=== PATIENT | male | born 1955 | race African-American/Black ===

== ENCOUNTER 2025-09-18 15:29 | Inpatient (IN) | payer SELFPAY ==
[2025-09-18] VITALS (10 sets, daily range): BP systolic 127–181; BP diastolic 68–146; BMI 39.3
[2025-09-18 13:59] LABS: Hematocrit 28.5 % (39.0-52.0); Hemoglobin 9.2 g/dL (13.0-18.0); Mean Corp Hgb Conc. 32.3 g/dL (33.0-37.0); Mean Corpuscular Volume 82.4 fL (80.0-94.0); Nucleated Red Blood Cells % 0 % (-); Platelet Count 402 10^3/uL (130-400); Red Cell Dist. Width 15.6 % (11.5-14.5)
[2025-09-18 14:27] LABS: ALT (SGPT) 29 U/L (0-50); AST (SGOT) 35 U/L (17-59); Albumin 3.7 g/dl (3.5-5.0); Alkaline Phosphatase 108 U/L (38-126); Calcium 7.7 mg/dl (8.4-10.2); Carbon Dioxide 6 mmol/L (22-30); Chloride 107 mmol/L (98-107); Glucose 114 mg/dl (70-99); Potassium 8.4 mmol/L (3.5-5.1); Sodium 134 mmol/L (135-145); Total Protein 7.6 g/dl (6.3-8.2)
[2025-09-18 14:36] LABS: Blood Urea Nitrogen 172 mg/dl (9-20); eGFR 2.72
[2025-09-18 14:37] LABS: COVID-19 Antigen Negative (Negative)
[2025-09-18] MEDS: CALCIUM GLUCONATE 1000 MG IV (14:59)
[2025-09-18] MEDS: DEXTROSE 50% SYRINGE 25 GRAMS IV ×3 (14:59→22:41)
[2025-09-18] MEDS: NOVOLIN R 5 UNITS IV ×2 (14:59→17:57)
[2025-09-18 15:02] LABS: Glucose - Point of Care 117 mg/dl (70-99)
--- NOTE | 2025-09-18 15:04 | ED.GENMED ---
History of Present Illness
General
Chief Complaint: Weakness
Source: patient
Exam Limitations: none
Time Seen by Provider: 09/18/25 14:38
Nursing documentation reviewed up to this point in time: agreed with
History of Present Illness
History of Present Illness:
Note:
CHIEF COMPLAINT(S)
Weakness and shortness of breath.
HISTORY OF PRESENT ILLNESS
The patient is a 70-year-old male presenting with a feeling of weakness over the past several days. He reports experiencing mild shortness of breath and slight swelling in his legs over the last day. The patient denies any chest pain. He mentioned
that he has noticed slightly elevated blood sugar levels recently, although he did not specify the exact measurements. The patient has not been eating or drinking adequately, stating a lack of appetite as the reason.
SOCIAL DETERMINANTS AFFECTING HEALTH
The patient lives by himself but occasionally stays with friends. He mentioned that he has lived overseas, specifically in [place].
CHRONIC MEDICAL CONDITIONS SIGNIFICANTLY AFFECTING CARE
The patient mentioned that his blood sugar levels have been high, suggesting a possible history of diabetes.
REVIEW OF SYSTEMS
- General: Weakness
- Respiratory: Mild shortness of breath
- Cardiovascular: Slight swelling in legs
- Endocrine: Noticed high blood sugar levels
PHYSICAL EXAM
General: Alert, no acute distress.
Skin: Warm, dry.
Head: Normocephalic, atraumatic.
Neck: Supple, trachea midline.
Eye, Ears, Nose, Mouth and Throat: Oral mucosa moist.
Cardiovascular: Normal peripheral perfusion, No edema.
Respiratory: Respirations are non-labored.
Gastrointestinal: Abdomen nondistended
Back: Normal range of motion, Normal alignment.
Musculoskeletal: Normal ROM, normal strength.
Neurological: Alert and oriented to person, place, time, and situation, No focal neurological deficit observed.
Psychiatric: Cooperative, appropriate mood & affect.
PROBLEM LIST
- Acute: Weakness, Mild Shortness of breath, Leg swelling
- Chronic: Possible diabetes
DIFFERENTIAL DIAGNOSIS
The Differential Diagnosis includes, in no particular order and is not limited to:
1. Congestive Heart Failure
2. Chronic Kidney Disease
3. Diabetes Mellitus
4. Electrolyte Imbalance
5. Peripheral Edema
6. Respiratory Infection
7. Anemia
8. Atrial Fibrillation
9. Dehydration
10. Hypoglycemia
CARE-UPDATE
09/18/25 - 15:46
In the reassessment, the patient, a 70-year-old male with post-obstructive renal failure and hypercalcemia, was noted to have significant improvement in urine output following the initiation of IV fluids and the placement of a Kenny catheter. Over
two liters of urine were removed, indicating relief of obstruction. The patient received calcium gluconate for hypercalcemia. Closely monitoring of kidney function and electrolyte levels is ongoing.
Disposition:
SUMMARY OF ENCOUNTER
The patient, a 70-year-old male, presented to the emergency department with symptoms of weakness, mild shortness of breath, and slight swelling in the legs. Evaluation indicated acute hypercalcemia and acute renal failure, complicated by acute
urinary retention. A Kenny catheter was placed, and intravenous fluids were initiated to relieve the obstruction. Calcium gluconate was administered to stabilize the myocardial membrane due to hypercalcemia.
DISPOSITION
Admit to ICU.
ASSESSMENT
Acute hypercalcemia, acute renal failure, acute urinary retention.
EMERGENCY TREATMENTS ADMINISTERED
Calcium gluconate for myocardial membrane stabilization.
MANAGEMENT OF THE PATIENTS CARE WAS DISCUSSED WITH
Nephrology and hospitalists were consulted regarding the patients condition and management. Plans were made for the patient to be admitted to the Intensive Care Unit (ICU) under the care of hospitalists.
MEDICAL DECISION MAKING
-Complexity of Data Reviewed: Chronic conditions affecting care including possible diabetes. Differential Diagnoses considered included: Congestive Heart Failure, Chronic Kidney Disease, Diabetes Mellitus, Electrolyte Imbalance, Peripheral Edema,
Respiratory Infection, Anemia, Atrial Fibrillation, Dehydration, and Hypoglycemia.
Category 3
Discussion of management with film painter and hospitalists for admission to ICU.
CRITICAL CARE TIME
I provided critical care management for this patient due to a high probability of clinically significant, life-threatening deterioration, requiring prompt intervention and strategic decision-making.
DIAGNOSIS
- Acute hypercalcemia (ICD-10: E83.52)
- Acute renal failure (ICD-10: N17.9)
- Acute urinary retention (ICD-10: R33.8)
Phy Exam
Physical Exam
Physical Exam:
.
Course
Orders/Labs/Results
Orders:
Orders
09/18/25 13:40
Electrocardiogram (*1) Urgent
Reason for Study: Other
Other Reason for Exam: Possible Sepsis
09/18/25 13:41
EKG- Treatment ONCE
09/18/25 13:50
COVID-19 Antigen Urgent
Source: Nasal Swab
Complete Blood Count/With Diff Urgent
Comprehensive Metabolic Panel Urgent
Influenza A+B Rapid Molecular Urgent
ANITA Source: Nasal Swab
Specimen Description:
09/18/25 14:38
NEPHROLOGY CONSULT Urgent
Consulting Provider: Dano Hernandez
Was physician already notified: Yes
Cardiac Monitoring- Treatment ONCE
Calcium Gluconate 1,000 mg IV NOW STA
Dextrose 50%-Water [Dextrose 50% Syringe] 12.5 grams IV [id number] PRN
Dextrose 50%-Water [Dextrose 50% Syringe] 25 grams IV NOW STA
Insulin Human Regular [Novolin R] 5 units IV NOW STA
09/18/25 14:39
Bedside Glucose PRE IV Insulin- HyperK+ NOW
09/18/25 15:03
Kenny Placement- Treatment ONCE
Reason for insertion: Acute Kidney Injury
09/18/25 15:05
Abdomen/Pelvis wo Contrast CT [CT Abd/pelvis Wo Iv Cont] Urgent
Comment:
Reason For Exam: katherin, abdominal distention pain
09/18/25 15:06
Sodium Bicarbonate 50 meq IV NOW STA
09/18/25 15:10
Admit/Transfer Patient As Directed
Co-Sign Provider:
Level of Care: Inpatient admission
Assign to:: ICU
Physician / Group: jasmin
Diagnosis: KATHERIN
Reason for Hospitalization: KATHERIN, hyperkalemia
Expected length of stay greater than two midnights?: Yes
ELOS- Estimated Length of Stay in days: 2
I certify the patient meets the requirements for IP care: Yes
Urinalysis Reflex To Culture Urgent
Date Specimen was Collected: 09/18/25
Time Specimen was Collected: 16:36
PRN Pain Medication Management As Directed
May give lesser potent ordered pain med per pt: Yes
preference::
Protocol:: Medication orders for pain may be administered in a
manner that supports deferring to patient preference
when the pt is:
- Requesting an ordered lesser potent pain medication.
Least to most potent pain medications are defined
as: acetaminophen < NSAID < tramadol < opioids
(morphine, oxycodone, hydromorphone).
- Requesting a lesser dose of the same medication IF
ORDERED.
- Requesting a less intrusive route of administration
if both routes are prescribed by the provider (PO <
IV).
09/18/25 15:14
Code Status As Directed
Resuscitation Status: Full Code
09/18/25 15:15
Sterile Water For Inj [Sterile Water For Injection 1000 ml] 1,000 ml Sodium Bicarbonate 150 meq IV 100 mls/hr
09/18/25 16:09
Bedside Glucose POST IV Insulin- HyperK+ Q1HX2,Q2HX2
09/18/25 17:09
Potassium Urgent
Comment: draw 2 hours after regular insulin IV administration
Abnormal Lab Results
09/18/25 09/18/25
13:50 15:00
WBC 20.9 H 10^3/uL
(4.8-10.8)
RBC 3.46 L 10^6/uL
(4.70-6.10)
Hgb 9.2 L g/dL
(13.0-18.0)
Hct 28.5 L %
(39.0-52.0)
MCH 26.6 L pg
(27.0-31.0)
MCHC 32.3 L g/dL
(33.0-37.0)
RDW 15.6 H %
(11.5-14.5)
Plt Count 402 H 10^3/uL
(130-400)
Abs Immat Gran (auto) 0.1 H 10^3/uL
(0-0.05)
Absolute Neuts (auto) 19.1 H 10^3/uL
(1.4-6.5)
Absolute Lymphs (auto) 0.4 L 10^3/uL
(1.2-3.4)
Absolute Monos (auto) 1.1 H 10^3/uL
(0.1-0.6)
Immature Gran % 0.6 H %
(0-0.5)
Neutrophils % 91.6 H %
(42.2-75.2)
Lymphocytes % 2.1 L %
(20.5-51.1)
Sodium 134 L mmol/L
(135-145)
Potassium 8.4 H* mmol/L
(3.5-5.1)
Carbon Dioxide 6 L* mmol/L
(22-30)
BUN 172 H* mg/dl
(9-20)
Creatinine 17.0 H* mg/dL
(0.7-1.3)
Glucose 114 H mg/dl
(70-99)
Calcium 7.7 L mg/dl
(8.4-10.2)
POC Glucose 117 H mg/dl
(70-99)
09/18/25 13:50
09/18/25 13:50
Vital Signs
Initial and Last Documented VS:
Initial Vital Signs
Temp Pulse Resp Pulse Ox
98.5 F 88 18 98
09/18/25 13:32 09/18/25 13:32 09/18/25 13:32 09/18/25 13:32
Last Documented Vital Signs
Temp Pulse Resp BP Pulse Ox
98.5 F 94 26 167/146 100
09/18/25 13:32 09/18/25 16:30 09/18/25 16:30 09/18/25 16:00 09/18/25 16:30
*Pulse Oximetry
SaO2: 98
Oxygen Mode of Delivery: Room air
Patient hypoxic: no
*Critical Care Note
Total Time (30-74mins, 75-104mins- exclusive of procedures): 30
comment:
Critical care statement: A total of 30 minutes of critical care time was provided for this patient. This includes management of unstable vital signs, evaluation of the patient at bedside, reviewing the patient's pertinent medical records, discussion
with consultants, review of old EKGs and review of pertinent medical records. This time with separate from time utilized to perform the aforementioned documented procedures
ED Attending Note
-
Portions of this chart may have been created with voice recognition software.� Occasional wrong word or��sound alike� substitutions may have occurred due to the inherent limitations of voice recognition software.
Discharge Plan
Departure
Patient Disposition: Admit
Date of Disposition: 09/18/25
Time of Disposition: 14:49
Admit to: ICU
Presentation/result/management discussed w/ accepting MD/DO: Hospitalist
Patient with high blood pressure during this ER visit?: Yes
Condition: Fair
Discharge Problem:
Acute renal failure, Acute hyperkalemia
Interventions
Interventions:
*Risk Screen - Suicide Last Done: 09/18/25 13:42
*General Assessment Last Done: 09/18/25 15:00
*Neglect/Abuse Screening Last Done: 09/18/25 13:42
*ED- Fall Risk Assessment Last Done: 09/18/25 15:00
*ED COVID-19 Vaccine History Last Done: 09/18/25 15:00
*ED Influenza Vaccine History Last Done: 09/18/25 15:00
ED- Cardiac Assessment Last Done: 09/18/25 16:40
ED- Neurological Assessment Last Done: 09/18/25 16:40
ED- Pulmonary Assessment Last Done: 09/18/25 16:40
--- NOTE | 2025-09-18 15:16 | HPS.HSE ---
Family Physician
-
Family Physician: * NONE
Chief Complaint
-
malaise
History of Present Illness
70-year-old male past medical history of diet-controlled diabetes presenting with 1 week of fatigue and malaise and decreased p.o. intake. His belly has become much more distended with diffuse pain and he has not urinated much in the past 2 days.
He denies vomiting. He denies fevers or chills. He has been having some loose yellow stools for the past few days. He denies any chest pain or shortness of breath. Denies NSAID use. He has increased lower extremity edema.
He denies any prior history of smoking or alcohol use or drugs. Denies any prior surgeries.
He denies any history of liver disease, kidney disease or heart disease.
Denies any family history of any medical problems.
Medical History
Past Medical History
Past Medical History: Reports Other (diet-controlled diabetes)
Past Surgical History: Reports None
Social History
Tobacco: Non-smoker
Alcohol: None
Drug: None
Family History
Family History: Not pertinent
Allergies / Home Medications
Allergies reflects when Allergies were last updated in [facility].
Home Medications with original date entered in [facility]
Allergy/Medication List:
Allergies
Allergy/AdvReac Type Severity Reaction Status Date / Time
No Known Allergies Allergy Unverified 09/18/25 13:41
Home Medications
No Meds [No Current Medications] 09/18/25
Review of Systems
-
History Source: Patient
A 12 point ROS was completed and negative except as noted: Yes
Constitutional: Reports No Symptoms
EENT: Reports No Symptoms
Respiratory: Reports No Symptoms
Cardiac: Reports No Symptoms
Abdomen/GI: Reports See HPI
: Reports No Symptoms
Musculoskeletal: Reports No Symptoms
Skin: Reports No Symptoms
Neurological: Reports No Symptoms
Endocrine: Reports No Symptoms
Hematologic/Lymphatic: Reports No Symptoms
Psych: Reports No Symptoms
Physical Exam
Vital Signs
Vital Signs
Temp Pulse Resp Pulse Ox
98.5 F 88 18 98
09/18/25 13:32 09/18/25 13:32 09/18/25 13:32 09/18/25 15:04
Physical Exam
General: Well Developed, Well Nourished and No Apparent Distress
HEENT: NormoCephalic, Moist mucous membranes and Atraumatic
Respiratory: Clear
Cardiac: S1/S2, Regular Rhythm and Peripheral Edema; No Murmur or Rub
GI: Soft, Non Distended, Normal Bowel Sounds, Tender (diffusely ) and Distended (umbilical hernia); No Organomegaly
Rectal: Deferred by Provider
Musculoskeletal: No Clubbing, No Cyanosis and No Edema
Skin: No Rash
Neuro: Nonfocal/grossly intact
Laboratory Results
-
09/18/25 13:50
Laboratory Results
Total Bilirubin 0.6 mg/dl (0.2-1.3) 09/18/25 13:50
AST 35 U/L (17-59) 09/18/25 13:50
ALT 29 U/L (0-50) 09/18/25 13:50
Alkaline Phosphatase 108 U/L (38-126) 09/18/25 13:50
Data Reviewed
-
Lab Data: Labs Reviewed by me
Old Records: Reviewed
Impression/Plan
-
IMPRESSION:
PLAN:
# Acute kidney injury suspect postobstructive etiology such as malignancy
# Severe hyperkalemia
# Severe anion gap metabolic acidosis
-EKG shows normal sinus rhythm, QRS of 20, intraventricular conduction delay
- Insulin dextrose being given
-Calcium gluconate
-Kenny catheter to be placed
- Bicarb push
- Bicarb drip
-Check urinalysis
- Check CT abdomen pelvis
- Nephrology consulted
Diet-controlled diabetes
- Insulin sliding scale
Full code
DVT prophylaxis�heparin
N.p.o. for now
[2025-09-18] MEDS: SODIUM BICARBONATE 50 MEQ IV (15:27)
[2025-09-18 15:38] LABS: Glucose - Point of Care 171 mg/dl (70-99)
[2025-09-18] MEDS: SODIUM BICARBONATE 1150 MEQ IV (15:40)
--- NOTE | 2025-09-18 15:53 | W.CON.NEPH ---
Consultation
-
Date/Time Consultation Requested: September 18, 2025 3 PM
Date/Time Consultation Performed: September 18, 2025 3:30 PM
Requesting Provider: Kevyn Jauregui
Performing Provider: Dr. Hernandez
Reason for Consultation: Acute kidney injury hyperkalemia
Medical History
-
Chief Complaint: katherin
History of Present Illness:
70-year-old male presenting with a feeling of weakness over the past several days. He reports experiencing mild shortness of breath and slight swelling in his legs over the last day.Is found to have a severe acute kidney injury with a BUN of 172
creatinine of 17 potassium of 8 Kenny catheter placed in the emergency room 4 L out in about 10 minutes.
Patient states decreased urination of the last 2 days with presenting lower extremity edema. He denies any NSAIDs he has been living in [place] since 1999 and recently came back to the area a few months ago. Has not established with primary doctor
has not had blood work done in quite some time. He is unknown if he has history of BPH.
Renal consultation for acute kidney injury and hyperkalemia
Past Medical History
Diet-controlled diabetes
Social History
Tobacco: Non-Smoker
Alcohol: None
Family History
Family History: Not Pertinent
Allergies / Home Medications
Allergy/AdvReac Type Severity Reaction Status Date / Time
No Known Allergies Allergy Unverified 09/18/25 13:41
�Medication �Instructions �Recorded �Confirmed �Type
No Meds [No Current Medications] 09/18/25 09/18/25 History
Review of Systems
-
Shortness of breath decreased urine output
All other systems: Negative unless noted
Physical Exam
Vital Signs
Vital Signs
Temp Pulse Resp Pulse Ox
98.5 F 88 18 98
09/18/25 13:32 09/18/25 13:32 09/18/25 13:32 09/18/25 15:04
Lab Results
WBC 20.9 10^3/uL (4.8-10.8) H 09/18/25 13:50
RBC 3.46 10^6/uL (4.70-6.10) L 09/18/25 13:50
Hgb 9.2 g/dL (13.0-18.0) L 09/18/25 13:50
Hct 28.5 % (39.0-52.0) L 09/18/25 13:50
Plt Count 402 10^3/uL (130-400) H 09/18/25 13:50
Sodium 134 mmol/L (135-145) L 09/18/25 13:50
Chloride 107 mmol/L (98-107) 09/18/25 13:50
Carbon Dioxide 6 mmol/L (22-30) L* 09/18/25 13:50
BUN 172 mg/dl (9-20) H* 09/18/25 13:50
Creatinine 17.0 mg/dL (0.7-1.3) H* 09/18/25 13:50
eGFR 2.72 09/18/25 13:50
Glucose 114 mg/dl (70-99) H 09/18/25 13:50
Calcium 7.7 mg/dl (8.4-10.2) L 09/18/25 13:50
Albumin 3.7 g/dl (3.5-5.0) 09/18/25 13:50
Physical Exam
General no acute distress
HEENT no cephalic atraumatic extraocular muscle intact no scleral icterus no JVD neck supple
lungs clear to auscultation bilateral
heart regular S1-S2 positive
abdomen soft nontender positive bowel sounds.Distended
extremities Edema
Neurologically nonfocal alert and oriented x 3
Skin no lesions no abrasions no petechiae
Psych normal affect no bizarre behavior
Data Reviewed
-
Labs: Labs Reviewed by me, Discussed with Physician, Discussed with Nurse and Discussed with Patient
Assessment/Plan
-
Impression
acute kidney injury.
Hyperkalemia 8.
Obstructive uropathy.
Metabolic acidosis.
Plan
Kenny catheter
Bolus IV fluids
Urine output 4 L in about 10 to 15 minutes I clamped the catheter until we get fluids running and then can open
Imaging pending
Suspect this is obstructive uropathy likely prostate
Follow sodium with postobstructive diuresis
May need to convert to D5W
Check PSA
Hopefully no acute need for dialysis and we have improvement in his electrolytes with diuresis as discussed with the patient
[2025-09-18] MEDS: NSS 1500 IV (16:00)
--- NOTE | 2025-09-18 16:32 | CON.INTV ---
Consultation
Consultation Request
Date/Time Consultation Requested: 09/18/2025-4:40 PM
Date/Time Consultation Performed: 09/18/2020 5-4 45 PM
Requesting Provider: Hospitalist
Performing Provider: Dr. Hargrove
Reason for Consultation: Critical care management
Medical History
-
Chief Complaint: Hyperkalemia, CLAU
History of Present Illness:
70-year-old non-smoking diabetic male with underlying BPH who had not urinated for 2 days and had some mild abdominal pain presented to the emergency room with CLAU, hyperkalemia and significant urinary retention-service writer advisor consulted for
life-threatening hyperkalemia/critical care management 09/18/2025. The patient feels much improved. He had a Kenny catheter placed and 6 L of fluid now bloody urine evacuated with improvement in his abdominal pain. He denies any shortness of
breath, chest pain, pleurisy, chest congestion, productive cough, he states that he is a never smoker. He had some mild lower extremity edema and chronic venous stasis changes but no new focal weakness.
Past Medical History
Past Medical History: None (Diet-controlled diabetes. BPH. Specifically no history of CAD, pulmonary, renal, gastrointestinal or neurologic disease)
Social History
Tobacco: Non-smoker
Alcohol: None
Drug: None
Occupational Exposures: No known asbestos exposure
Environmental Exposures: No known tuberculosis exposure
Family History
Family History: Reviewed & Not Pertinent
Allergies / Home Medications
Allergies
Allergy/AdvReac Type Severity Reaction Status Date / Time
No Known Allergies Allergy Unverified 09/18/25 13:41
Home Medications
�Medication �Instructions �Recorded �Confirmed �Last Taken �Type
No Meds [No Current Medications] 09/18/25 09/18/25 Unknown History
Review of Systems
-
Unable to Obtain full review of systems at this time due to: Other ( per HPI)
Vitals / Labs / Diagnostic Testing
Vital Signs
Temp Pulse Resp Pulse Ox
98.5 F 88 18 98
09/18/25 13:32 09/18/25 13:32 09/18/25 13:32 09/18/25 15:04
Lab Data
09/18/25 13:50
Microbiology
09/18/25 13:50 Nasal Swab Influenza Types A & B (MO) - Final
Negative for Influenza A & B, NAAT
Negative results must be combined with clinical observations
and patient history.
Nucleic Acid Amplification test (NAAT)performed on the
[employer] platform.
Diagnostic Testing:
Physical Exam
-
Exam:
Well-nourished and well-developed in no apparent distress
HEENT-atraumatic, normocephalic
Neck-supple, no JVD, no bruit
Heart-regular rate and rhythm-no murmurs, rubs or gallops
Chest-clear to auscultation, no wheezes, crackles
Back-no tenderness
Abdomen-soft, nontender, nondistended, no hepatosplenomegaly
Extremities-no cyanosis, clubbing, trace lower extremity edema with chronic venous stasis changes
Integument-intact, no rashes, lesions or ecchymosis
Neurology-alert and oriented, nonfocal motor and sensory exam
Assessment
-
70-year-old non-smoking diabetic male with underlying BPH who had not urinated for 2 days and had some mild abdominal pain presented to the emergency room with CLAU, hyperkalemia and significant urinary retention-service writer advisor consulted for
life-threatening hyperkalemia/critical care management 09/18/2025.
Acute kidney injury-serum creatinine 17
Bladder outlet obstruction/obstructive uropathy
Life-threatening hyperkalemia-potassium 8.4
Metabolic acidosis
Leukocytosis
Dwrlau-zsbsgvlore-mjyhdiopiy 9.2
Thrombocytosis-platelet 402
Mild hyperglycemia
Hypocalcemia
Hematuria
Conditions present prior to admission:
Diet-controlled diabetes. BPH.
Specifically no history of CAD, pulmonary, renal, gastrointestinal or neurologic disease
Plan
Admit patient to medical intensive care unit
Supplemental oxygen if needed
Aspiration precautions
Nebulizers if needed-currently not bronchospastic
Monitor potassium-no severe arrhythmias or hyperkalemic changes on EKG
D50 and insulin provided in addition to calcium gluconate and bicarb
Nephrology evaluation
Kenny catheter placed-6 L of now bloody urine
Obstructive uropathy suspected
Intravenous fluids per nephrology
Replace calcium as needed
Check cultures
Monitor leukocytosis
Follow hemoglobin
Transfuse if needed
Monitor blood sugar
Insulin supplementation if needed
DVT prophylaxis recommended-mechanical at a minimum if hesitant to provide Lovenox with hematuria
Nutrition
Early mobilization
Critical care statement: A total of 50 minutes of critical care time was provided for this patient today. This includes management of unstable vital signs, evaluation of the patient at bedside, reviewing the patient�s pertinent medical records
including radiographs, microbiology, laboratory evaluations, and��discussion with primary team, consultants, pharmacy, nutrition, physical therapy, case management, charge nurse, critical care nursing, and respiratory therapy.
Diagnostic data:
Data Reviewed
-
EKG: Report reviewed by me
Medical Tests (Nuc Med, Echo etc): Report reviewed by me
Labs: Labs reviewed by me
Old Records: Reviewed
Total Time Spent with Patient (in minutes): 50
[2025-09-18 17:00] LABS: ALT (SGPT) 28 U/L (0-50); AST (SGOT) 32 U/L (17-59); Albumin 3.6 g/dl (3.5-5.0); Alkaline Phosphatase 94 U/L (38-126); Calcium 7.8 mg/dl (8.4-10.2); Carbon Dioxide 8 mmol/L (22-30); Chloride 106 mmol/L (98-107); Glucose 110 mg/dl (70-99); Potassium 7.4 mmol/L (3.5-5.1); Sodium 135 mmol/L (135-145); Total Protein 7.2 g/dl (6.3-8.2)
[2025-09-18 17:08] LABS: Blood Urea Nitrogen 174 mg/dl (9-20); Estimated Creatinine Clearance 5 ml/min; eGFR 2.82
[2025-09-18 17:33] LABS: Glucose - Point of Care 106 mg/dl (70-99)
[2025-09-18 18:05] LABS: Glucose - Point of Care 109 mg/dl (70-99)
[2025-09-18 18:22] LABS: Urine Character Cloudy (Clear)
[2025-09-18 18:27] LABS: Glucose - Point of Care 170 mg/dl (70-99)
[2025-09-18 18:33] LABS: Urine Squamous Cell 0-2 /LPF (Few)
[2025-09-18 18:37] LABS: Urine Red Blood Cell >100 /HPF (0-2); Urine White Cell 0-2 /HPF (0-5)
[2025-09-18 19:02] LABS: Glucose - Point of Care 125 mg/dl (70-99)
[2025-09-18] MEDS: ZOSYN 50 IV (19:23)
[2025-09-18] MEDS: NOVOLOG FLEXPEN-LOW RESISTANCE SC (19:23)
[2025-09-18 20:34] LABS: Glucose - Point of Care 189 mg/dl (70-99)
[2025-09-18 20:53] LABS: INR 1.56; PT 18.9 Sec (11.4-14.6)
[2025-09-18 20:53] LABS: Calcium 7.6 mg/dl (8.4-10.2); Carbon Dioxide 11 mmol/L (22-30); Chloride 108 mmol/L (98-107); Glucose 122 mg/dl (70-99); Magnesium 2.3 mg/dl (1.6-2.3); Potassium 7.6 mmol/L (3.5-5.1); Sodium 139 mmol/L (135-145)
[2025-09-18 20:54] LABS: APTT 32.1 Sec (23.4-35.0)
--- NOTE | 2025-09-18 20:59 | PTCARENOTE ---
Rec'd pt from ED with CLAU, reina placed prior to ICU. CT abdomen complete and resulted, labs sent, chest xray done. Zosyn hung late as it was ordered for ED and not given. Neurologically intact, MAURER, oriented no c/o pain at this time. Afebrile, NSR
on monitor. BP stable 127/74. IV lines B'L flushed/patent with SW and [id number] infusing as ordered. Pulses palpable, edema on B/L LE. Right castro skin openings 2/2 fluid retention. Room air, 98%. Tolerating regular diet, box lunch provided. 16F
reina placed for 'CLAU' indication in ED. No urimeter. 650cc bloody urine drained. Clamp not fully closed and urine all over the floor. Unable to determine amount. Clamp replaced. Output documented in I&O section of chart. Will monitor.
[2025-09-18 21:04] LABS: Blood Urea Nitrogen 168 mg/dl (9-20); Estimated Creatinine Clearance 6 ml/min; eGFR 3.16
[2025-09-18] MEDS: CALCIUM GLUCONATE 130 MG IV (21:54)
[2025-09-18 22:00] LABS: Glucose - Point of Care 195 mg/dl (70-99)
[2025-09-18] MEDS: NOVOLIN R 10 UNITS IV (22:42)
[2025-09-19] VITALS (33 sets, daily range): BP systolic 119–168; BP diastolic 56–76; BMI 36.0
[2025-09-19 00:03] LABS: Glucose - Point of Care 183 mg/dl (70-99)
[2025-09-19] MEDS: SODIUM BICARBONATE 1150 MEQ IV ×3 (00:12→16:22)
[2025-09-19] MEDS: OFIRMEV 100 IV (00:26)
[2025-09-19 01:14] LABS: Glucose - Point of Care 179 mg/dl (70-99)
[2025-09-19] MEDS: ZOSYN 50 IV ×3 (01:17→17:32)
[2025-09-19 01:53] LABS: Hematocrit 19.8 % (39.0-52.0); Hemoglobin 6.5 g/dL (13.0-18.0); Mean Corp Hgb Conc. 32.8 g/dL (33.0-37.0); Mean Corpuscular Volume 82.5 fL (80.0-94.0); Platelet Count 322 10^3/uL (130-400); Red Cell Dist. Width 15.4 % (11.5-14.5)
--- NOTE | 2025-09-19 02:00 | PTCARENOTE ---
2PM labs sent early as urine output very bloody. Pt says he feels weak. Vital signs unchanged. HGB resulted at 6.5, K+ 7.0, BUN 167, Creat 13.4 CLAIMS AUDITOR Suad made aware of lab results, type and screen obtained, blood consent on chart. 1 unit PRBC
ordered, awaiting call from Blood bank. Potassium has been treated from previous result at 2020, and will be treated again for 199 results. 2 G Calcium Gluc, 25g IV dextrose and 10u regular insulin given. Consult to urology placed. Patient updated
on plan of care and reassured emotionally. Will transfuse blood once available. And recheck labs as ordered.
[2025-09-19 02:01] LABS: Calcium 7.5 mg/dl (8.4-10.2); Carbon Dioxide 14 mmol/L (22-30); Chloride 106 mmol/L (98-107); Glucose 147 mg/dl (70-99); Potassium 7.0 mmol/L (3.5-5.1); Sodium 134 mmol/L (135-145)
[2025-09-19 02:07] LABS: Blood Urea Nitrogen 167 mg/dl (9-20); Estimated Creatinine Clearance 6 ml/min; eGFR 3.62
[2025-09-19] MEDS: CALCIUM GLUCONATE 100 IV ×2 (02:43→23:00)
[2025-09-19] MEDS: DEXTROSE 50% SYRINGE 25 GRAMS IV (02:44)
[2025-09-19] MEDS: NOVOLIN R 10 UNITS IV (02:44)
[2025-09-19 04:05] LABS: Glucose - Point of Care 145 mg/dl (70-99)
--- NOTE | 2025-09-19 04:16 | PTCARENOTE ---
Total output from reina so far this shift >3500 very bloody urine. [employer] Suad aware. Suggested calling Urology for possible CBI. Suggested lactic acid lab. Awaiting further orders. Urology consulted, not called at this time / reina still
draining. Unit of PRBC infusing as ordered. Patient updated on plan of care. Will monitor.
[2025-09-19 04:47] LABS: Venous Blood Gas B.E. -9.9 mmol/L (-4 to +4); Venous Blood Gas O2 Sat % 99.5 %
[2025-09-19 05:07] LABS: Glucose - Point of Care 134 mg/dl (70-99)
[2025-09-19 05:24] LABS: ALT (SGPT) 21 U/L (0-50); AST (SGOT) 24 U/L (17-59); Albumin 2.5 g/dl (3.5-5.0); Alkaline Phosphatase 71 U/L (38-126); Calcium 7.7 mg/dl (8.4-10.2); Carbon Dioxide 16 mmol/L (22-30); Chloride 107 mmol/L (98-107); Estimated Creatinine Clearance 7 ml/min; Glucose 114 mg/dl (70-99); Potassium 6.5 mmol/L (3.5-5.1); Sodium 137 mmol/L (135-145); Total Protein 5.4 g/dl (6.3-8.2); eGFR 3.68
[2025-09-19 05:35] LABS: Blood Urea Nitrogen 158 mg/dl (9-20)
[2025-09-19 06:49] LABS: Glucose - Point of Care 133 mg/dl (70-99)
--- NOTE | 2025-09-19 07:25 | W.PN.INTV ---
Today's Communication / Plan
Recommendations
Follow hemoglobin and hematuria
Follow hyperkalemia and acute renal failure
Transfuse
Check cultures and empiric antibiotics
Hemodialysis likely needed
Assessment
-
70-year-old non-smoking diabetic male with underlying BPH who had not urinated for 2 days and had some mild abdominal pain presented to the emergency room with CLAU, hyperkalemia and significant urinary retention-radio host consulted for
life-threatening hyperkalemia/critical care management 09/18/2025.
Acute kidney injury-serum creatinine 17
Bladder outlet obstruction/obstructive uropathy
Life-threatening hyperkalemia-potassium 8.4
Metabolic acidosis
Leukocytosis
Okivhv-lohvlrjlao-paqyhdiqmx 9.2-subsequently 6.5 from acute blood loss/hematuria
Thrombocytosis-platelet 402
Mild hyperglycemia
Hypocalcemia
Hematuria
Conditions present prior to admission:
Diet-controlled diabetes. BPH.
Specifically no history of CAD, pulmonary, renal, gastrointestinal or neurologic disease
Plan
Remains critically ill with hyperkalemia, hematuria and anemia
Supplemental oxygen if needed
Aspiration precautions
Nebulizers if needed-currently not bronchospastic
Monitor potassium-no severe arrhythmias or hyperkalemic changes on EKG-potassium slowly coming down
D50 and insulin provided in addition to calcium gluconate and bicarb
Nephrology evaluation ongoing
Kenny catheter placed-6 L of now bloody urine
Obstructive uropathy noted on CT abdomen
Intravenous fluids per nephrology
Replace calcium as needed
Likely will need dialysis-possibly long-term
Check cultures
Urine culture pending
Influenza negative
Monitor leukocytosis
Empiric antibiotics to cover pyelonephritis and cystitis
Follow hemoglobin
Monitor hematuria
Transfuse transfuse packed red blood cells
Urology evaluation
Monitor blood sugar
Insulin supplementation if needed
DVT prophylaxis recommended-currently on heparin-consider mechanical if ongoing hematuria and anemia
Nutrition
Early mobilization
Critical care statement: A total of 45 minutes of critical care time was provided for this patient today. This includes management of unstable vital signs, evaluation of the patient at bedside, reviewing the patient�s pertinent medical records
including radiographs, microbiology, laboratory evaluations, and��discussion with primary team, consultants, pharmacy, nutrition, physical therapy, case management, charge nurse, critical care nursing, and respiratory therapy.
Diagnostic data:
CT abdomen and pelvis 09/18/2025-mild bilateral gynecomastia, minimal left pleural effusion, mild to moderate dependent subsegmental atelectasis, severe diffuse urinary bladder wall thickening suggesting severe acute cystitis, moderate to severe
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
Subjective Dataa
Subjective Data
Date of Service:
Date of Service: September 19, 2025
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
Subjective:
Feels better, no abdominal pain, still has bloody urine, no shortness of breath, chest pain
Review of Systems
General: Other (Per HPI)
Objective Data
Data Reviewed
Vital Signs / I&O / Oxygen:
Vital Signs
Temp Pulse Resp BP Pulse Ox
97.8 F 88 18 151/62 99
09/19/25 07:11 09/19/25 06:57 09/19/25 06:57 09/19/25 06:57 09/19/25 06:57
Intake and Output
09/18/25 09/19/25 09/20/25
06:59 06:59 06:59
Intake Total 2630 / 2630
Output Total 71007 / 43273
Balance -7970 / -7970
SaO2 99
Physical Exam
General: Respiratory Distress (n) and Comfortable
HEENT: Normocephalic, Anicteric and Moist Mucous Membranes
Cardiovascular: Regular Rhythm
Respiratory: Wheeze (n), Crackles (n), Rhonchi (n), Non-Labored Respirations, Accessory Resp Muscle Use (n) and Stridor (n)
GI: Soft, Non Distended and Non Tender
Neurology: Awake, Alert and No Motor Deficits
Skin: Warm, Good Color, Cyanosis (n), Jaundice (n) and Rash (n)
Labs/Micro/Reports
Lab Data
09/19/25 01:14
Laboratory Results
09/18/25
20:37
PT 18.9 H
INR 1.56
APTT 32.1
Microbiology
09/18/25 13:50 Nasal Swab Influenza Types A & B (MO) - Final
Negative for Influenza A & B, NAAT
Negative results must be combined with clinical observations
and patient history.
Nucleic Acid Amplification test (NAAT)performed on the
[employer] platform.
[2025-09-19] MEDS: NOVOLOG FLEXPEN-LOW RESISTANCE SC (07:26)
--- NOTE | 2025-09-19 07:50 | W.PN.INTV ---
Today's Communication / Plan
Recommendations
Continue antibiotics
Follow cultures
Repeat labs at noon
Assessment
-
Assessment:
This is a 70 y/o male with pmhx of diet-controlled type 2 diabetes mellitus who presented to the ED on 09/18/2025 with weakness for 1 week with swelling in his legs, difficulty urinating for x2 days, and occasional shortness of breath found to have
life-threatening hyperkalemia of 8.4, creatinine of 17, and significant urinary retention in the setting of obstructive uropathy and pyelonephritis.
Plan:
Acute Kidney Injury
Life-Threatening Hyperkalemia
Anion Gap Metabolic Acidosis
Acute Bilateral Pyelonephritis
Acute Severe Cystitis
Obstructive Uropathy with evidence for BPH
ED labs: BUN 172, Creatinine 17, Potassium 8.4, Bicarbonate 6, overall anion gap 21, WBC 20.9.
Potassium today 6.5, creatinine 13.2, anion gap 14, WBC 13.8
UA in the ED red, cloudy, positive for Nitrites, 1+ leukocyte esterase, >100 RBC, 1+ ketones
EKG 09/18: Left axis deviation, normal sinus rhythm with intraventricular conduction delay
CT Abdomen/Pelvis 09/18: Severe diffuse urinary bladder wall thickening and perivesical inflammation suggesting SEVERE ACUTE CYSTITIS. MODERATE to SEVERE BILATERAL HYDROURETERONEPHROSIS with perinephric edema suggesting ACUTE BILATERAL
PYELONEPHRITIS. SEVERELY ENLARGED PROSTATE GLAND with evidence for BPH and urinary bladder outlet obstruction. Kenny catheter in the urinary bladder.
S/p calcium gluconate, insulin + D50, bicarbonate in the ED
S/p Kenny catheter placed in the ED which drained 6L bloody urine. So far has drained almost 11L total since presentation
Nephrology is following, will appreciate their insight
Urology has been consulted, will appreciate their insight
PSA pending
Urine cultures pending
Continue antibiotics. Currently on Zosyn. Consider switching to ceftriaxone pending cultures
Continue on Telemetry
Continue to monitor potassium. At this time no sign of hyperkalemic changes/arrhythmias noted
Normocytic Anemia
ED hemoglobin 9.2, hematocrit 28.5
Hemoglobin 6.5, hematocrit 19.8 today
1 unit pRBCs ordered on 09/19
Will recheck CBC following transfusion
Thrombocytosis - Resolved
Platelet 402 on admission, now 322
Will monitor
Non-Insulin Dependent Diabetes Mellitus
Diet controlled
A1c pending, no prior available
Continue Insulin per protocol as needed
Subjective Dataa
Subjective Data
Date of Service:
Date of Service: September 19, 2025
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
Subjective:
Patient was doing very well today when I arrived. He states that he feels 90% better than he did in the ED yesterday, and is free of nausea, chest pain and weakness. He still has some residual abdominal discomfort but it is significantly improved
from where it had been and he no longer feels as bloated.
Review of Systems
General: Fever (Denies) and Chills (Denies)
Cardiopulmonary: Dyspnea (Denies) and Chest Pain (Denies)
GI: Abdominal Pain (Some minimal residual, significantly improved from yesterday), Nausea (Denies) and Vomiting (Denies)
Neuro: Weakness (Denies)
Genitourinary: Hematuria
Objective Data
Data Reviewed
Vital Signs / I&O / Oxygen:
Vital Signs
Temp Pulse Resp BP Pulse Ox
97.8 F 88 18 151/62 99
09/19/25 07:11 09/19/25 06:57 09/19/25 06:57 09/19/25 06:57 09/19/25 06:57
Intake and Output
09/18/25 09/19/25 09/20/25
06:59 06:59 06:59
Intake Total 2630 / 2630
Output Total 85781 / 20395
Balance -7970 / -7970
SaO2 99
Physical Exam
General: Comfortable
HEENT: Normocephalic and Anicteric
Cardiovascular: S1-S2 and Regular Rhythm
Respiratory: Clear
Neurology: Awake, Alert and Oriented
Skin: Warm, Dry and Good Color
Labs/Micro/Reports
Lab Data
09/19/25 01:14
Laboratory Results
09/18/25
20:37
PT 18.9 H
INR 1.56
APTT 32.1
Microbiology
09/18/25 13:50 Nasal Swab Influenza Types A & B (MO) - Final
Negative for Influenza A & B, NAAT
Negative results must be combined with clinical observations
and patient history.
Nucleic Acid Amplification test (NAAT)performed on the
[employer] platform.
--- NOTE | 2025-09-19 08:00 | PTCARENOTE ---
Received patient from qa architect. patient is pleasant, alert. He is on room air, sinus rhythm on monitor. edema of lower extremities. Patient is ordered regular diet and has reina catheter draining maroon coloured urine. will recheck ACCU
check per K protocol and AC HS. Awaiting plan from renal and urology. patient received one unit pRBCs overnight.
[2025-09-19 09:09] LABS: Glycohemoglobin (HgbA1c) 7.5 % (4.0-5.9)
[2025-09-19 09:14] LABS: Glucose - Point of Care 122 mg/dl (70-99)
--- NOTE | 2025-09-19 09:23 | CONS.URO ---
Medical History
History of Present Illness
Admission not excerpt: '70-year-old male past medical history of diet-controlled diabetes presenting with 1 week of fatigue and malaise and decreased p.o. intake. His belly has become much more distended with diffuse pain and he has not urinated
much in the past 2 days. He denies vomiting. He denies fevers or chills. He has been having some loose yellow stools for the past few days. '
Kenny placed in ED with prompt evacuation of ~ 4 liters
Past Medical History
Past Medical History: None
Past Surgical History: None
Allergies/Home Medications
Allergies
Allergy/AdvReac Type Severity Reaction Status Date / Time
No Known Allergies Allergy Unverified 09/18/25 13:41
Home Medications
�Medication �Instructions �Recorded �Confirmed �Type
No Meds [No Current Medications] 09/18/25 09/18/25 History
Physical Exam
Vital Signs
Vital Signs
Temp Pulse Resp BP Pulse Ox
97.8 F 89 22 141/67 99
09/19/25 07:11 09/19/25 08:30 09/19/25 08:30 09/19/25 08:00 09/19/25 09:02
Physical Exam
Exam performed by Dr Rojo.
adult male in ICU bed
Kenny draining thinly bloody urine
Assessment / Plan
-
1. Prostatomegaly -- ~ [address] dimensions
2. Obstructive Uropathy due to #1
3. Hematuria from venous bleeding due to decompression of chronically distended urinary bladder
4. Post-obstructive diuresis -- likely will persist for prolonged period
Rec: Kenny must be maintained to permit maximal recovery of renal function
Base on Prostate Gland's size, Robotic Prostatectomy will eventually be recommended
PSA -- pending
Data Reviewed
-
CT Scan: Image personally visualized and interpreted ('moderate to severe bilateral hydroureteronephrosis. Both ureters distended to the level of the urinary bladder. There is a moderate amount of symmetric bilateral perinephric edema. There is no
CT evidence for intrarenal or ureteral calculus. The urinary bladder wall is severely diffusely t)
[2025-09-19 09:49] LABS: Glucose - Point of Care 120 mg/dl (70-99)
[2025-09-19] MEDS: FLOMAX 0.4 MG PO (10:45)
[2025-09-19] MEDS: PROSCAR 5 MG PO (10:45)
[2025-09-19 12:16] LABS: Glucose - Point of Care 297 mg/dl (70-99)
--- NOTE | 2025-09-19 12:17 | W.PN.HOSP.TC ---
Today's Communication/Plan
-
.
Assessment / Plan
Assessment / Plan
Modesto Valenzuela is a 70M w/ PMHx of diet controlled DM and BPH who presented to the emergency department with mild abdominal pain in the setting of anuria for 2 days and found to have florid CLAU, severe hyperkalemia, and significant urinary retention.
The patient was admitted to the intensive care unit in the setting of life-threatening hyperkalemia, anion gap metabolic acidosis, and florid CLAU.
1. Acute Kidney Injury 2/2 Obstructive Uropathy
- PMHx of BPH, previously on medication, but stopped taking few years ago
- Labs on admission: BUN 172, creatinine 17, K 8.4, HCO3 6, AGAP 21, WBC 20.9 K
AM Labs (09/19): K 6.5, creatinine 13.2, and gap 14, WBC 13.8 K
- Urinary retention status post 7.2 L drainage of bloody urine total
- CT Abd/Pelv (09/18): Severe diffuse urinary bladder wall thickening, perivesical inflammation suggesting severe acute cystitis, moderate to severe bilateral hydroureteronephrosis, perinephric edema suggesting acute bilateral pyelonephritis,
severely enlarged prostate gland
- Appreciate Nephrology Recommendations: will need dialysis in the short term, and most likely the director long term care
- PSA pending
2. Severe Hyperkalemia
- K on admission 8.4
- AM Labs (09/19): K 6.5
- Continue telemetry
- Initially on Calcium Gluconate, Bicarb, Insulin drip
- Continue to follow BMPs
- HD per nephrology
3. Acute Bilateral Pyelonephritis/Acute Severe Cystitis
- Empiric Abx with Zosyn
- Pending UCx
4. History of BPH
- Likely precipitating factor of all of the above.
- No longer on alpha sommer
- Appreciate Urology reccs
5. Acute Blood Loss Anemia
- Initial Hb 9, drop to 6 after Kenny drainage
- s/p 1U pRBC
- Continue to Monitor H/H
6. NIDDM
- Diet Controlled
- HbA1c pending
CODE: Full
Diet: 0 diabetic
DVT PPx: SCD
Anticipated Discharge: > 48 hours
Subjective/Interval History
-
Date of Service: September 19, 2025
Patient endorses feeling greatly improved from presentation yesterday.
Denies chest pain, shortness of breath, palpitations, headaches, abdominal pain, n/v/d.
Endorses some residual distension that is improved from yesterday.
Objective Data
-
Labs:
Laboratory Results
09/19/25 09/19/25 09/19/25
00:43 01:14 04:35
WBC 13.8 H
Hgb 6.5 L* D
Hct 19.8 L*
Plt Count 322
Sodium 134 L 137
Potassium Cancelled 7.0 H* 6.5 H*
Chloride 106 107
Carbon Dioxide 14 L* 16 L
BUN 167 H* 158 H*
Creatinine 13.4 H* 13.2 H*
Glucose 147 H 114 H
Calcium 7.5 L 7.7 L
Total Bilirubin 0.4
AST 24
ALT 21
Alkaline Phosphatase 71
09/19/25 09/19/25
04:46 12:04
WBC
Hgb Pending
Hct Pending
Plt Count
Sodium Pending
Potassium Pending Pending
Chloride Pending
Carbon Dioxide Pending
BUN Pending
Creatinine Pending
Glucose Pending
Calcium Pending
Total Bilirubin
AST
ALT
Alkaline Phosphatase
Vital Signs:
Vital Signs
Temp Pulse Resp BP Pulse Ox
97.8 F 94 20 139/59 98
11/04/25 07:11 09/19/25 11:30 09/19/25 11:30 09/19/25 11:00 09/19/25 11:15
I&O
09/18/25 09/19/25 09/20/25
06:59 06:59 06:59
Intake Total 2630 / 2780 750 / 750
Output Total 79448 / 03635 1250 / 1250
Balance -7970 / -7820 -500 / -500
Review of Systems
-
History Source: Patient
All other systems: Reviewed and negative
Physical Exam
-
General: Well Developed, Well Nourished, No Apparent Distress, Comfortable and Conversant
HEENT: Normocephalic, Atraumatic and Moist Mucous Membranes
Respiratory: Clear to Auscultation and Non Labored Respirations
Cardiac: Regular Rhythm and S1/S2
GI: Soft, Nontender, Distended (mild) and Other (golf ball sized paraumbilical hernia that is NTTP and easily reducible)
Musculoskeletal: No Clubbing, No Cyanosis and No Edema
Skin: Warm
Neuro: Awake, Alert and Oriented
Psych: Calm
Data Reviewed
-
Diagnostic Radiology: Image personally visualized and interpreted, Report Reviewed by me and Discussed with Patient
CT Scan: Image personally visualized and interpreted, Report Reviewed by me and Discussed with Patient
Labs: Labs Reviewed by me and Discussed with Patient
[2025-09-19 12:26] LABS: Hematocrit 21.5 % (39.0-52.0); Hemoglobin 7.1 g/dL (13.0-18.0)
[2025-09-19] MEDS: NOVOLOG FLEXPEN-LOW RESISTANCE 3 UNITS SC ×2 (12:33→18:11)
[2025-09-19 12:47] LABS: Calcium 7.0 mg/dl (8.4-10.2); Carbon Dioxide 17 mmol/L (22-30); Chloride 105 mmol/L (98-107); Estimated Creatinine Clearance 7 ml/min; Glucose 230 mg/dl (70-99); Potassium 6.1 mmol/L (3.5-5.1); Sodium 137 mmol/L (135-145); eGFR 4.09
[2025-09-19 12:59] LABS: Blood Urea Nitrogen 152 mg/dl (9-20)
--- NOTE | 2025-09-19 14:03 | PTCARENOTE ---
no change in patient's presentation. notified nephrology and urology of patient's continued urine output. Will resend labs again at 1600
--- NOTE | 2025-09-19 14:31 | W.PN.NEPH.PH ---
Today's Communication / Plan
-
Continue bicarbonate and treated potassium with insulin glucose/Lokelma
Assessment/Plan
-
Impression
acute kidney injury.
Hyperkalemia 8.
Obstructive uropathy.
Metabolic acidosis.
Plan
Kenny catheter
Obstructive uropathy large prostate bilateral hydro nonoliguric has made significant amount of bloody urine today
Renal function minimal improvement despite significant urine output. If this is acute I would expect improvement in his renal function more significant.
This is likely been ongoing for quite some time causing her chronic process
Urology consult
Potassium remains elevated
I offered a dialysis to the patient in the interim to help with hyperkalemia and persistent severe azotemia
At this time he is not yet made decision to go forward with as I explained to him as we are uncertain as to whether this will be permanent or not
With that said could continue with medical management short of dialysis. He has mild asterixis is no pericardial rub but I am able to auscultate.
I discussed with critical care team.
Will continue with serial basic metabolic panels and treat potassium as needed

60 minutes critical care time
-
-
Date of Service: September 19, 2025
CC / HPI / ROS
-
Chief Complaint:
Presents not feeling
History of Present Illness:
Found to have life-threatening hyperkalemia severe azotemia obstructive uropathy
Review of Systems:
No chest pain or shortness of breath
Nonoliguric
Labs
-
Labs:
Hgb Cancelled 09/19/25 20:00
Hct Cancelled 09/19/25 20:00
eGFR 4.09 09/19/25 12:04
Phosphorus 8.1 mg/dl (2.5-4.5) H 09/18/25 20:21
Physical Exam
-
Vital Signs:
Vital Signs
Temp Pulse Resp BP Pulse Ox
98.7 F 82 16 119/56 98
09/19/25 12:23 09/19/25 14:15 09/19/25 14:15 09/19/25 14:00 09/19/25 14:15
--- NOTE | 2025-09-19 16:41 | CM ---
Initial assessment completed with patient who lives with 2 friends in a 2 story home plus basement home with B/B on 1st and 2 steps to enter. 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 No DME. No in-home services. No HC-POA. No VA
benefits. No psychiatric hospitalizations. No PCP. [facility]acy [facility] on [address] in [place]. Patient does not have insurance. [facility] for Medicaid and he is not eligible because his monthly income is above allowable amount. Also
does not have Medicare. May not be eligible for Medicare because he worked in [employer] until recently. Discharge POC: Anticipate home with no needs vs [facility]
[2025-09-19 16:44] LABS: Hematocrit 20.2 % (39.0-52.0); Hemoglobin 6.5 g/dL (13.0-18.0); Mean Corp Hgb Conc. 32.2 g/dL (33.0-37.0); Mean Corpuscular Volume 82.1 fL (80.0-94.0); Platelet Count 309 10^3/uL (130-400); Red Cell Dist. Width 15.3 % (11.5-14.5)
[2025-09-19 16:53] LABS: ALT (SGPT) 20 U/L (0-50); AST (SGOT) 19 U/L (17-59); Albumin 2.6 g/dl (3.5-5.0); Alkaline Phosphatase 71 U/L (38-126); Calcium 6.9 mg/dl (8.4-10.2); Carbon Dioxide 21 mmol/L (22-30); Chloride 102 mmol/L (98-107); Estimated Creatinine Clearance 7 ml/min; Glucose 216 mg/dl (70-99); Potassium 5.8 mmol/L (3.5-5.1); Sodium 133 mmol/L (135-145); Total Protein 5.4 g/dl (6.3-8.2); eGFR 4.17
[2025-09-19 17:01] LABS: Blood Urea Nitrogen 147 mg/dl (9-20)
[2025-09-19] MEDS: NSS 1000 IV ×2 (17:55→22:38)
[2025-09-19] MEDS: NOVOLOG FLEXPEN 3 UNITS SC (18:12)
[2025-09-19 18:25] LABS: Glucose - Point of Care 261 mg/dl (70-99)
[2025-09-19] MEDS: CALCIUM GLUCONATE 130 MG IV (20:24)
[2025-09-19 22:08] LABS: Glucose - Point of Care 211 mg/dl (70-99)
[2025-09-19 22:13] LABS: Hematocrit 19.4 % (39.0-52.0); Hemoglobin 6.7 g/dL (13.0-18.0); Mean Corp Hgb Conc. 34.5 g/dL (33.0-37.0); Mean Corpuscular Volume 81.2 fL (80.0-94.0); Platelet Count 288 10^3/uL (130-400); Red Cell Dist. Width 14.9 % (11.5-14.5)
[2025-09-19 22:17] LABS: INR 1.44; PT 17.8 Sec (11.4-14.6)
[2025-09-19 22:18] LABS: APTT 33.0 Sec (23.4-35.0)
[2025-09-19 22:23] LABS: Calcium 7.4 mg/dl (8.4-10.2); Carbon Dioxide 23 mmol/L (22-30); Chloride 102 mmol/L (98-107); Estimated Creatinine Clearance 8 ml/min; Glucose 188 mg/dl (70-99); Potassium 5.9 mmol/L (3.5-5.1); Sodium 133 mmol/L (135-145); eGFR 4.58
[2025-09-19 22:37] LABS: Blood Urea Nitrogen 141 mg/dl (9-20)
[2025-09-19] MEDS: NOVOLOG FLEXPEN 2 UNITS SC (22:37)
[2025-09-20] VITALS (23 sets, daily range): BP systolic 124–161; BP diastolic 57–75; PULSE 82; BMI 35.0
--- NOTE | 2025-09-20 01:16 | PTCARENOTE ---
Hgb 6.7, order noted to transfuse 2U prbc. First unit infusing. Patient updated on plan of care. Will monitor.
[2025-09-20] MEDS: ZOSYN 50 IV (01:26)
[2025-09-20] MEDS: TUMS CHEWABLE TABLET 400 MG PO (02:03)
--- NOTE | 2025-09-20 05:00 | PTCARENOTE ---
AM care provided, labs sent and resulted. Awaiting further orders for electrolyte repletion. Education provided regarding status and plan of care. Will monitor.
[2025-09-20 05:16] LABS: Hematocrit 23.6 % (39.0-52.0); Hemoglobin 7.7 g/dL (13.0-18.0); Mean Corp Hgb Conc. 32.6 g/dL (33.0-37.0); Mean Corpuscular Volume 84.3 fL (80.0-94.0); Platelet Count 266 10^3/uL (130-400); Red Cell Dist. Width 16.3 % (11.5-14.5)
[2025-09-20 05:25] LABS: INR 1.37; PT 17.2 Sec (11.4-14.6)
[2025-09-20 05:26] LABS: APTT 30.3 Sec (23.4-35.0)
[2025-09-20 05:44] LABS: Albumin 2.4 g/dl (3.5-5.0); Calcium 6.9 mg/dl (8.4-10.2); Carbon Dioxide 23 mmol/L (22-30); Chloride 107 mmol/L (98-107); Estimated Creatinine Clearance 8 ml/min; Glucose 173 mg/dl (70-99); Magnesium 1.8 mg/dl (1.6-2.3); Potassium 5.9 mmol/L (3.5-5.1); Sodium 136 mmol/L (135-145); eGFR 5.20
[2025-09-20] MEDS: NSS 1000 IV ×2 (06:07→11:13)
[2025-09-20 06:08] LABS: Blood Urea Nitrogen 133 mg/dl (9-20)
--- NOTE | 2025-09-20 07:26 | W.PN.INTV ---
Today's Communication / Plan
Recommendations
Ceftriaxone
Monitor renal function and potassium
Consideration towards hemodialysis
Follow hemoglobin and transfuse as needed
Monitor hematuria
Stable for transfer out of ICU-heating and cooling systems engineer will sign off-call pulmonary if respiratory issues arise
Assessment
-
70-year-old non-smoking diabetic male with underlying BPH who had not urinated for 2 days and had some mild abdominal pain presented to the emergency room with CLAU, hyperkalemia and significant urinary retention-heating and cooling systems engineer consulted for
life-threatening hyperkalemia/critical care management 09/18/2025.
Acute kidney injury-serum creatinine 17
Bladder outlet obstruction/obstructive uropathy
Life-threatening hyperkalemia-potassium 8.4
Metabolic acidosis
Leukocytosis
Isbixb-ncurhtfuce-rxusticvkq 9.2-subsequently 6.5 from acute blood loss/hematuria
Thrombocytosis-platelet 402
Mild hyperglycemia
Hypocalcemia
Hematuria
Conditions present prior to admission:
Diet-controlled diabetes. BPH.
Specifically no history of CAD, pulmonary, renal, gastrointestinal or neurologic disease
Plan
Renal function, hyperkalemia have improved-significant hematuria persists
Supplemental oxygen if needed-currently on room air
Aspiration precautions
Nebulizers if needed-currently not bronchospastic
Monitor potassium-no severe arrhythmias or hyperkalemic changes on EKG-potassium slowly coming down
Repetitive doses of D50 and insulin provided in addition to calcium gluconate and bicarb
Nephrology evaluation ongoing-correspondence reviewed-reviewed with Dr. Ireland 09/20/2025
Kenny catheter placed-continues to have bloody urine
Obstructive uropathy noted on CT abdomen
Intravenous fluids per nephrology
Replace calcium as needed
Holding off on dialysis at this point-serum creatinine improving
Cultures reviewed
Urine culture-no growth
Influenza negative
Monitor leukocytosis
Empiric antibiotics to cover pyelonephritis and cystitis-finite course-Zosyn changed to ceftriaxone 09/20/2025
Follow hemoglobin
Monitor hematuria
Transfuse transfuse packed red blood cells-has received 4 units PRBC thus far
Urology evaluation-eventual prostatectomy-Will likely need to go home with Kenny
Monitor blood sugar
Insulin supplementation if needed
DVT prophylaxis recommended-currently on heparin-consider mechanical if ongoing hematuria and anemia
Nutrition
Physical therapy
Patient stable for transfer out of ICU to telemetry-heating and cooling systems engineer will sign off-please call pulmonary if respiratory issues arise
Reviewed the patient�s pertinent medical records including radiographs, microbiology, laboratory evaluations, and��discussion with primary team, consultants, pharmacy, nutrition, physical therapy, case management, charge nurse, critical care
nursing, and respiratory therapy.
Diagnostic data:
CT abdomen and pelvis 09/18/2025-mild bilateral gynecomastia, minimal left pleural effusion, mild to moderate dependent subsegmental atelectasis, severe diffuse urinary bladder wall thickening suggesting severe acute cystitis, moderate to severe
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
Subjective Dataa
Subjective Data
Date of Service:
Date of Service: September 20, 2025
Chief Complaint: Senior Center Director Follow Up and Pulmonary Follow Up
Subjective:
Feels much better, no abdominal pain, no shortness of breath, chest pain
Review of Systems
General: Other (Per HPI)
Objective Data
Data Reviewed
Vital Signs / I&O / Oxygen:
Vital Signs
Temp Pulse Resp BP Pulse Ox
98.9 F 80 15 156/66 95
09/20/25 03:50 09/20/25 05:45 09/20/25 05:45 09/20/25 05:01 09/20/25 05:45
Intake and Output
09/19/25 09/20/25 09/21/25
06:59 06:59 06:59
Intake Total 2630 / 2780 6090 / 6090
Output Total 93047 / 43987 09675 / 30447
Balance -7970 / -7820 -4410 / -4410
SaO2 95
Physical Exam
General: Respiratory Distress (n) and Comfortable
HEENT: Normocephalic and Anicteric
Cardiovascular: Regular Rhythm
Respiratory: Clear
GI: Soft, Non Distended and Non Tender
Neurology: Awake, Alert and No Motor Deficits
Skin: Warm, Dry, Cyanosis (n), Jaundice (n) and Rash (n)
Labs/Micro/Reports
Lab Data
09/20/25 04:59
09/20/25 04:59
Laboratory Results
09/19/25 09/20/25
21:53 04:59
PT 17.8 H 17.2 H
INR 1.44 1.37
APTT 33.0 30.3
Microbiology
09/18/25 13:50 Nasal Swab Influenza Types A & B (MO) - Final
Negative for Influenza A & B, NAAT
Negative results must be combined with clinical observations
and patient history.
Nucleic Acid Amplification test (NAAT)performed on the
[employer] platform.
[2025-09-20 07:37] LABS: Glucose - Point of Care 176 mg/dl (70-99)
[2025-09-20] MEDS: FLEXBUMIN 100 IV (07:47)
[2025-09-20] MEDS: PROSCAR 5 MG PO (07:48)
[2025-09-20] MEDS: FLOMAX 0.4 MG PO (07:48)
[2025-09-20] MEDS: CALCIUM GLUCONATE 130 MG IV (08:03)
[2025-09-20] MEDS: NOVOLOG FLEXPEN 6 UNITS SC ×3 (08:07→18:08)
[2025-09-20] MEDS: NOVOLOG FLEXPEN-LOW RESISTANCE 1 UNITS SC ×2 (08:07→13:08)
--- NOTE | 2025-09-20 08:33 | W.PN.HOSP.TC ---
Today's Communication/Plan
-
.
Assessment / Plan
Assessment / Plan
Modesto Valenzuela is a 70M w/ PMHx of diet controlled DM and BPH who presented to the emergency department with mild abdominal pain in the setting of anuria for 2 days and found to have florid CLAU, severe hyperkalemia, and significant urinary retention.
The patient was admitted to the intensive care unit in the setting of life-threatening hyperkalemia, anion gap metabolic acidosis, and florid CLAU. He is s/p 4 U pRBC.
On 09/20, labs continued to improve without dialysis, and patient downgraded to telemetry.
1. Acute Kidney Injury 2/2 Obstructive Uropathy
- PMHx of BPH, previously on medication, but stopped taking few years ago
- Labs on admission: BUN 172, creatinine 17, K 8.4, HCO3 6, AGAP 21, WBC 20.9 K
AM Labs (09/19): K 6.5, creatinine 13.2, and gap 14, WBC 13.8 K
AM Labs (09/20): K 5.9, creatinine 9.9, gap closed, WBC 12.1 K
- CT Abd/Pelv (09/18): Severe diffuse urinary bladder wall thickening, perivesical inflammation suggesting severe acute cystitis, moderate to severe bilateral hydroureteronephrosis, perinephric edema suggesting acute bilateral pyelonephritis,
severely enlarged prostate gland
- Appreciate Nephrology Recommendations: will still need to consider HD if Cr does not break below 3
- Continue Kenny
- PSA pending
2. Severe Hyperkalemia
- K on admission 8.4
- AM Labs (09/19): K 6.5
- AM Labs (09/20): K 5.9
- Continue telemetry
- Initially on Calcium Gluconate, Bicarb, Insulin drip
- Continue to follow BMPs
- HD recommendations per nephrology
3. Acute Bilateral Pyelonephritis/Acute Severe Cystitis
- Empiric Abx with Zosyn -- narrowed to Ceftriaxone
- Pending Sensitivities
4. History of BPH
- Likely precipitating factor of all of the above.
- No longer on alpha sommer
- Appreciate Urology reccs
5. Acute Blood Loss Anemia
- Initial Hb 9, drop to 6 after Kenny drainage
- s/p 4U pRBC
- Continue to Monitor H/H; transfuse for Hb < 7
6. NIDDM
- Diet Controlled
- HbA1c pending
CODE: Full
Diet: 2199 diabetic
DVT PPx: SCD
Anticipated Discharge: > 48 hours
Subjective/Interval History
-
Date of Service: September 20, 2025
Patient seen and examined while resting in bed, comfortably eating his breakfast.
Endorses no acute complaints this morning and states that he feels improved from presentation.
Patient states he has not given more thought to HD, but will discuss with nephrology.
Otherwise denies fevers, chills, chest pain, SOB, palpitations, abdominal pain, flank pain.
Objective Data
-
Labs:
Laboratory Results
09/19/25 09/20/25
21:53 04:59
WBC 12.1 H 12.1 H
Hgb 6.7 L* 7.7 L
Hct 19.4 L* 23.6 L
Plt Count 288 266
PT 17.8 H 17.2 H
INR 1.44 1.37
APTT 33.0 30.3
Sodium 133 L 136
Potassium 5.9 H 5.9 H
Chloride 102 107
Carbon Dioxide 23 23
BUN 141 H* 133 H*
Creatinine 11.0 H* 9.9 H*
Glucose 188 H 173 H
Calcium 7.4 L 6.9 L*
Vital Signs:
Vital Signs
Temp Pulse Resp BP Pulse Ox
98.2 F 81 18 161/75 99
09/20/25 07:34 09/20/25 08:00 09/20/25 08:00 09/20/25 08:00 09/20/25 08:27
I&O
09/19/25 09/20/25 09/21/25
06:59 06:59 06:59
Intake Total 2630 / 2780 6090 / 6265 580 / 580
Output Total 75845 / 02498 59286 / 17231 1650 / 1650
Balance -7970 / -7820 -4410 / -4235 -1070 / -1070
Review of Systems
-
History Source: Patient
All other systems: Reviewed and negative
Physical Exam
-
General: Well Developed, Well Nourished, No Apparent Distress, Comfortable and Conversant
HEENT: Normocephalic, Atraumatic and Moist Mucous Membranes
Respiratory: Clear to Auscultation and Non Labored Respirations
Cardiac: Regular Rhythm and S1/S2
GI: Soft, Nontender, Nondistended and Other (easily reducible paraumbilical hernia)
Genito-urinary: No Costovertebral Tender and Kenny (with bloody urine (recently changed bag))
Musculoskeletal: No Clubbing, No Cyanosis and No Edema
Skin: Warm
Neuro: Awake, Alert and Oriented
Psych: Calm
Data Reviewed
-
Labs: Labs Reviewed by me and Discussed with Patient
--- NOTE | 2025-09-20 08:38 | W.PN.INTV ---
Today's Communication / Plan
Recommendations
Switch zosyn to ceftriaxone
Add senna
PT order
Diabetes education
Could downgrade today
Assessment
-
Assessment:
This is a 70 y/o male with pmhx of diet-controlled type 2 diabetes mellitus who presented to the ED on 09/18/2025 with weakness for 1 week with swelling in his legs, difficulty urinating for x2 days, and occasional shortness of breath found to have
life-threatening hyperkalemia of 8.4, creatinine of 17, and significant urinary retention in the setting of obstructive uropathy and pyelonephritis.
Plan:
Acute Kidney Injury
Life-Threatening Hyperkalemia
Anion Gap Metabolic Acidosis
Acute Bilateral Pyelonephritis
Acute Severe Cystitis
Obstructive Uropathy with evidence for BPH
ED labs: BUN 172, Creatinine 17, Potassium 8.4, Bicarbonate 6, overall anion gap 21, WBC 20.9.
09/19 Labs: Potassium 6.5, creatinine 13.2, anion gap 14, WBC 13.8
09/20 Labs: Potassium 5.9, creatinine 9.9
UA in the ED red, cloudy, positive for Nitrites, 1+ leukocyte esterase, >100 RBC, 1+ ketones
EKG 09/18: Left axis deviation, normal sinus rhythm with intraventricular conduction delay
CT Abdomen/Pelvis 09/18: Severe diffuse urinary bladder wall thickening and perivesical inflammation suggesting SEVERE ACUTE CYSTITIS. MODERATE to SEVERE BILATERAL HYDROURETERONEPHROSIS with perinephric edema suggesting ACUTE BILATERAL
PYELONEPHRITIS. SEVERELY ENLARGED PROSTATE GLAND with evidence for BPH and urinary bladder outlet obstruction. Kenny catheter in the urinary bladder.
S/p calcium gluconate, insulin + D50, bicarbonate in the ED
S/p Kenny catheter placed in the ED which drained 6L bloody urine. Since presentation to this AM, has produced approximately 22.75L
Nephrology is following, will appreciate their insight
Urology is following, will appreciate their insight
PSA pending
Urine cultures pending
Continue antibiotics. Switch to Ceftriaxone today
Continue on Telemetry
Continue to monitor potassium. At this time no sign of hyperkalemic changes/arrhythmias noted
Had a candid discussion today about dialysis and the recommendation of the technical solution architect for it. It is possible he will need it long-term, which I mentioned to him, but it is unclear at this time exactly how long he would need it for.
Constipation
Added senna prn today
Hypocalcemia
Calcium today 6.9
Continue to replete as necessary
Normocytic Anemia
ED hemoglobin 9.2, hematocrit 28.5, decreased on 09/19 to below 7 x2
S/p 4 units pRBCs at this time
CBC this AM hemoglobin 7.7
Continue to transfuse as necessary to maintain hemoglobin >7
Continue to monitor hemaruia
Thrombocytosis - Resolved
Platelet 402 on admission, now 266
Will monitor
Non-Insulin Dependent Diabetes Mellitus
Previously Diet controlled
7.7
Continue Insulin per protocol as needed
Placed order for diabetes education today to discuss monitoring.
Patient will need medications upon discharge as he is not controlled
Subjective Dataa
Subjective Data
Date of Service:
Date of Service: September 20, 2025
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
Subjective:
Patient reports feeling well today. He is free of any weakness, chills, fevers, nausea, vomiting or pain. He expresses concern about dialysis, and if starting dialysis would be permenant or not. At this point he has continued without it.
Review of Systems
General: Fever (Denies) and Chills (Denies)
Cardiopulmonary: Dyspnea (Denies), Cough (Denies) and Chest Pain (Denies)
GI: Abdominal Pain (Denies), Nausea (Denies) and Vomiting (Denies)
Neuro: Weakness (Denies)
Objective Data
Data Reviewed
Vital Signs / I&O / Oxygen:
Vital Signs
Temp Pulse Resp BP Pulse Ox
98.2 F 81 18 161/75 99
09/20/25 07:34 09/20/25 08:00 09/20/25 08:00 09/20/25 08:00 09/20/25 08:27
Intake and Output
09/19/25 09/20/25 09/21/25
06:59 06:59 06:59
Intake Total 2630 / 2780 6090 / 6265 580 / 580
Output Total 81798 / 62350 23230 / 51291 1650 / 1650
Balance -7970 / -7820 -4410 / -4235 -1070 / -1070
SaO2 99
Physical Exam
General: Comfortable
HEENT: Normocephalic and Anicteric
Cardiovascular: S1-S2 and Regular Rhythm
Respiratory: Clear
GI: Soft, Non Distended and Non Tender
Neurology: Awake, Alert and Oriented
Skin: Warm, Dry and Good Color
Labs/Micro/Reports
Lab Data
09/20/25 04:59
09/20/25 04:59
Laboratory Results
09/19/25 09/20/25
21:53 04:59
PT 17.8 H 17.2 H
INR 1.44 1.37
APTT 33.0 30.3
Microbiology
09/18/25 13:50 Nasal Swab Influenza Types A & B (MO) - Final
Negative for Influenza A & B, NAAT
Negative results must be combined with clinical observations
and patient history.
Nucleic Acid Amplification test (NAAT)performed on the
[employer] platform.
--- NOTE | 2025-09-20 09:31 | W.PN.NEPH.PH ---
Today's Communication / Plan
-
follow BMP
Assessment/Plan
-
Impression
acute kidney injury.
Hyperkalemia 8.
Obstructive uropathy.
Metabolic acidosis.
Plan
Reina catheter
switch to 1/2 NSS
lokelma for K
follow BMP
he may still need HD if Cr fails to improve to < 3
-
-
Date of Service: September 20, 2025
CC / HPI / ROS
-
Chief Complaint:
CLAU
History of Present Illness:
CLAU/Cr down to 9.9
BUN down to 133
K still hgih 5.9
Na up to [address]
Review of Systems:
No chest pain or shortness of breath
Nonoliguric
Labs
-
Labs:
WBC 12.1 10^3/uL (4.8-10.8) H 09/20/25 04:59
RBC 2.80 10^6/uL (4.70-6.10) L 09/20/25 04:59
Plt Count 266 10^3/uL (130-400) 09/20/25 04:59
eGFR 5.20 09/20/25 04:59
Phosphorus 8.1 mg/dl (2.5-4.5) H 09/18/25 20:21
Albumin 2.4 g/dl (3.5-5.0) L 09/20/25 04:59
Physical Exam
-
Vital Signs:
Vital Signs
Temp Pulse Resp BP Pulse Ox
98.2 F 81 18 161/75 99
09/20/25 07:34 09/20/25 08:00 09/20/25 08:00 09/20/25 08:00 09/20/25 08:27
Cardiovascular:: Regular rate and rhythm
Respiratory:: Bilateral: Coarse
Lung Excursion:: Normal
Abdomen:: Nontender and Soft
Bowel Sounds:: Normal
Extremity Edema:: None: Bilateral:
[2025-09-20] MEDS: MAGNESIUM SULFATE 102 GRAMS IV (09:41)
--- NOTE | 2025-09-20 10:54 | W.PN.URO.CBU ---
Today's Communication / Plan
-
Rec: Kenny must be maintained to permit maximal recovery of renal function
Base on Prostate Gland's size, Robotic Prostatectomy will eventually be recommended
PSA -- pending
extensive d/w pt re anatomy, pathophysiology, anticipated course
Assessment / Plan
-
1. Prostatomegaly -- ~ [address] dimensions
2. Obstructive Uropathy due to #1
3. Hematuria from venous bleeding due to decompression of chronically distended urinary bladder
4. Post-obstructive diuresis -- likely will persist for prolonged period
5. Anemia -- secondary to renal failure
Renal function is slowly improving
Diagnosis
-
Date of Service: September 20, 2025
-
Patient Diagnosis:
1. Prostatomegaly -- ~ [address] dimensions
2. Obstructive Uropathy due to #1
3. Hematuria from venous bleeding due to decompression of chronically distended urinary bladder
4. Post-obstructive diuresis --
5. Anemia
Subjective
-
comfortable with Kenny
Objective
-
Vital Signs
Temp Pulse Resp BP Pulse Ox
98.2 F 88 20 157/60 97
09/20/25 07:34 09/20/25 10:00 09/20/25 10:00 09/20/25 10:00 09/20/25 09:30
Intake and Output
09/19/25 09/20/25 09/21/25
06:59 06:59 06:59
Intake Total 2630 / 2780 6090 / 6265 1435 / 1435
Output Total 55895 / 39949 01262 / 25981 2550 / 2550
Balance -7970 / -7820 -4410 / -4235 -1115 / -1115
Intake:
Oral fluids 690 / 690 400 / 400
IV fluids (Total) 1600 / 1750 3900 / 4075 700 / 700
NSS 2100 / 2275 700 / 700
Sterile Water For Injection 1600 / 1750 1800 / 1800
1000 ml 1,000 ml @ 150 mls/hr
IV .Q7H40M ANDREAS with Sodium
Bicarbonate 150 Meq Rx#:
[id number]
IV piggybacks 530 / 530 250 / 250 235 / 235
Blood Products 250 / 250 500 / 500 100 / 100
Albumin 100 / 100
Packed red blood cells 250 / 250 500 / 500
Blood Product Amount Infused ( 250 / 250 750 / 750
mL)
Packed Rbc Leukoreduced Unit 250 / 250
[id number]
Packed Rbc Leukoreduced Unit 250 / 250
[id number]
Packed Rbc Leukoreduced Unit 250 / 250
[id number]
Packed Rbc Leukoreduced Unit 250 / 250
[id number]
Output:
Urine, Kenny 06829 / 62871 54806 / 00781 2550 / 2550
Other:
How many times incontinent 1
MODERATE amount urine
Physical Exam
-
General - well developed, well nourished, no acute distress
Genitalia - Kenny with darkly bloody but clot-free urine
[2025-09-20] MEDS: STERILE WATER FOR INJECTION 20 ML IV (11:13)
[2025-09-20] MEDS: ROCEPHIN 2000 MG IV (11:13)
[2025-09-20] MEDS: LOKELMA 10 GRAM PO (12:15)
[2025-09-20 12:27] LABS: Glucose - Point of Care 166 mg/dl (70-99)
--- NOTE | 2025-09-20 12:55 | PTCARENOTE ---
Pt OOB in chair with 2 assist at 0945. Unsteady gait. Sinus rhythm. +2-3 lower extremity edema. Lungs CTA. On room air. Tolerating diet. Small BM today. Offered PRN [place]. Pt refused at this time. Kenny continues to drain large amount of
bloody urine. See I&Os. All other assessments unchanged.
[2025-09-20] MEDS: 0.45%NACL 1000 IV ×2 (13:08→20:44)
--- NOTE | 2025-09-20 13:24 | PTCARENOTE ---
09/20/2026 DIABETES EDUCATION CONSULT
I met with patient to review diabetes management. He is newly diagnosed with Diabetes. States in the past he had prediabetes. He recently moved from [facility] to [facility], no PCP here currently.
I educated on physiology of T2D, organ damage, managing with medications, monitoring BG, nutrition, activity, sleep and managing stress. I reinforced signs of hyperglycemia, hypoglycemia and hypoglycemia protocol; BS parameters and recommended HbA1c
goals, glucometer and CGM instructions, glucose tracker, medic alert bracelet and outpatient DSME program. Written material provided.
I provided patient with a My Digital Shield Gen glucometer sample kit. Provided verbal instructions on proper blood sugar testing technique, and demonstration with patient�s participation. He currently does not have insurance, directed him to [facility]
for OTC diabetes testing supplies.
I educated to rodriguez that he is currently administered mealtime insulin as his BS has ranged between 117-261 mg/dL. I also advised Rodriguez to discuss medications for diabetes at discharge. I reviewed his current insulin, in case he is d/c with this
medication. I demonstrated on insulin injection technique, timing, and storage. Discussed short acting insulin; onset/peak/duration, and encouraged her to administer his own injections with RN supervision while admitted. Discussed normal target
glucose ranges and a monitoring schedule 15 minutes before each meal when prescribed Novolog, and before bedtime. Pen needles given to nurse, asked her to assist patient with administering future doses.
Encouraged patient to follow up with a PCP for post d/c appointment and to monitor medication and blood glucose levels. Patient verbalized understanding.
[2025-09-20 14:26] LABS: Hematocrit 22.1 % (39.0-52.0); Hemoglobin 7.6 g/dL (13.0-18.0)
[2025-09-20 15:20] LABS: Calcium 7.1 mg/dl (8.4-10.2); Carbon Dioxide 20 mmol/L (22-30); Chloride 106 mmol/L (98-107); Estimated Creatinine Clearance 10 ml/min; Glucose 147 mg/dl (70-99); Potassium 5.2 mmol/L (3.5-5.1); Sodium 138 mmol/L (135-145); eGFR 6.52
[2025-09-20 15:36] LABS: Blood Urea Nitrogen 122 mg/dl (9-20)
--- NOTE | 2025-09-20 15:50 | PTCARENOTE ---
09/20-Patient transferred to unit without issue. AAOX3, pleasant. Kenny CDI draining 100cc of bloody urine. Patient denies any current needs pain or concerns.
--- NOTE | 2025-09-20 16:35 | CM ---
Transferred to Room 437-2. CLAU, IV/Ceftriaxone, following BMP, K at 8, Obstructive uropathy, metabolic acidosis. Discharge POC: TBD.
[2025-09-20 18:01] LABS: Glucose - Point of Care 255 mg/dl (70-99)
[2025-09-20] MEDS: NOVOLOG FLEXPEN-LOW RESISTANCE 3 UNITS SC (18:08)
[2025-09-20 22:06] LABS: Glucose - Point of Care 176 mg/dl (70-99)
[2025-09-20 22:28] LABS: Hematocrit 19.7 % (39.0-52.0); Hemoglobin 6.7 g/dL (13.0-18.0)
[2025-09-21] VITALS (9 sets, daily range): BP systolic 130–176; BP diastolic 51–78
--- NOTE | 2025-09-21 02:26 | PTCARENOTE ---
Patient`s urine was bloody at 2100. Per dayshiadolph RN, urine color was also bloody. Nurse practitioner contacted via [place] [facility] at 2110 on 09/20 for CBC lab order. RN received a critical lab value for the HGB at 6.7. [place] ALLAN made aware at 2235. One
unit of PRBC was ordered, see TAR for administration. 0600 CBC ordered. JERRELL Be was at bedside to assess the patient`s reina.
--- NOTE | 2025-09-21 04:08 | W.PN.UPDATE ---
Addendum entered and electronically signed by TUTU Swann 09/21/25 06:22:
Asked to see patient for continued hematuria, total output overnight was 3150 mls of dark red bloody urine. Patient denies any symptoms such as palpatations, chest discomfort, lightheadedness, dizziness. TT'd on-call Urology, Dr. Zhao to update.
Original Note:
Update Note
Progress Note Update
Reina w/bloody drainage, ordered H&H @ 22:00. Evaluated patient, no complaints of pain, states he has not symptoms of dizziness, lightheadedness at this time. Vital signs stable.
~22:00 Hgb 6.7/Hct 19.7. Ordered 1 unit PRBC's, repeat labs in am. Continue to monitor for clots, abdominal distention, pain, decreased reina output and vital signs.�
[2025-09-21] MEDS: 0.45%NACL 1000 IV ×2 (04:39→12:59)
--- NOTE | 2025-09-21 06:25 | PTCARENOTE ---
RN emptied patient`s Kenny bag this morning for 3150 ml of dark bloody urine. No clots were noted. Patient was easily arousable and denied any pain or dizziness. [place] COMMERCIAL TRAILER TRUCK DRIVER was at the bedside to assess the output. See chart for vital signs.
[2025-09-21 07:42] LABS: Hematocrit 23.0 % (39.0-52.0); Hemoglobin 7.9 g/dL (13.0-18.0); Mean Corp Hgb Conc. 34.3 g/dL (33.0-37.0); Mean Corpuscular Volume 83.3 fL (80.0-94.0); Nucleated Red Blood Cells % 0 % (-); Platelet Count 269 10^3/uL (130-400); Red Cell Dist. Width 15.7 % (11.5-14.5)
[2025-09-21 08:09] LABS: Blood Urea Nitrogen 113 mg/dl (9-20); Calcium 6.8 mg/dl (8.4-10.2); Carbon Dioxide 17 mmol/L (22-30); Chloride 107 mmol/L (98-107); Estimated Creatinine Clearance 13 ml/min; Glucose 111 mg/dl (70-99); Potassium 5.2 mmol/L (3.5-5.1); Sodium 135 mmol/L (135-145); eGFR 8.78
[2025-09-21 08:43] LABS: Glucose - Point of Care 121 mg/dl (70-99)
[2025-09-21] MEDS: NOVOLOG FLEXPEN-LOW RESISTANCE SC (08:47)
[2025-09-21] MEDS: FLOMAX 0.4 MG PO (08:50)
[2025-09-21] MEDS: PROSCAR 5 MG PO (08:50)
--- NOTE | 2025-09-21 08:50 | W.PN.URO.CBU ---
Today's Communication / Plan
-
to be discharged when medically cleared WITH OSORIO IN PLACE.
repeat PSA as an outpatient in ~ 3 weeks
Assessment / Plan
-
1. Prostatomegaly -- ~ [address] dimensions
2. Obstructive Uropathy due to #1
3. Hematuria from venous bleeding due to decompression of chronically distended urinary bladder
4. Post-obstructive diuresis -- likely will persist for prolonged period
5. Anemia -- secondary to renal failure
6 ELEVATED PSA -- might be indicative of prostate cancer, but also could be due to prostate inflammation/catheterization
Renal function is steadily improving
Diagnosis
-
Date of Service: September 21, 2025
-
Patient Diagnosis:
Post Op Day:
Patient Diagnosis:
1. Prostatomegaly -- ~ [address] dimensions
2. Obstructive Uropathy due to #1
3. Hematuria from venous bleeding due to decompression of chronically distended urinary bladder
4. Post-obstructive diuresis --
5. Anemia
6 ELEVATED PSA -- might be indicative of prostate cancer, but also could be due to prostate inflammation/catheterization
Subjective
-
comfortable
Objective
-
Vital Signs
Temp Pulse Resp BP Pulse Ox
98.3 F 78 12 161/74 98
09/21/25 07:00 09/21/25 07:00 09/21/25 07:00 09/21/25 07:00 09/21/25 07:00
Intake and Output
09/20/25 09/21/25 09/22/25
06:59 06:59 06:59
Intake Total 6090 / 6265 4495 / 4495
Output Total 35129 / 01921 8300 / 8300
Balance -4410 / -4235 -3805 / -3805
Intake:
Oral fluids 690 / 690 1360 / 1360
IV fluids (Total) 3900 / 4075 2550 / 2550
NSS 2100 / 2275 1050 / 1050
Sterile Water For Injection 1800 / 1800
1000 ml 1,000 ml @ 150 mls/hr
IV .Q7H40M ANDREAS with Sodium
Bicarbonate 150 Meq Rx#:
[id number]
IV piggybacks 250 / 250 235 / 235
Blood Products 500 / 500 100 / 100
Albumin 100 / 100
Packed red blood cells 500 / 500
Blood Product Amount Infused ( 750 / 750 250 / 250
mL)
Packed Rbc Leukoreduced Unit 250 / 250
[id number]
Packed Rbc Leukoreduced Unit 250 / 250
[id number]
Packed Rbc Leukoreduced Unit 250 / 250
[id number]
Packed Rbc Leukoreduced Unit 250 / 250
[id number]
Output:
Urine, Osorio 97949 / 83775 6600 / 6600
Urine, Voided 1700 / 1700
Laboratory Results
09/21/25 06:58
09/21/25 07:19
Physical Exam
-
General - well developed, well nourished, no acute distress
Chest - clear bilaterally
Abdomen - soft, non-tender, positive bowel sounds, no CVAT, no incisional pain or distention
Genitalia - normal
Rectal - normal
Skin - warm & dry with no rash
Neuro - AOx3, no motor deficits
Extremities - no clubbing, no cyanosis, no edema
Incision - clean, dry
Dressing - clean, dry, intact
[2025-09-21] MEDS: NOVOLOG FLEXPEN 6 UNITS SC ×3 (08:54→17:27)
[2025-09-21] MEDS: ROCEPHIN 2000 MG IV (10:26)
[2025-09-21] MEDS: STERILE WATER FOR INJECTION 20 ML IV (10:27)
--- NOTE | 2025-09-21 10:50 | W.PN.HOSP.TC ---
Addendum entered and electronically signed by Fredo Sheets DO 09/21/25 13:46:
Acute Bilateral Pyelonephritis/Acute Severe Cystitis only
Original Note:
Today's Communication/Plan
-
Afternoon labs.
Transfuse Hb < 7.
Continue to monitor Cr and K.
Assessment / Plan
Assessment / Plan
Modesto Valenzuela is a 70M w/ PMHx of diet controlled DM and BPH who presented to the emergency department with mild abdominal pain in the setting of anuria for 2 days and found to have florid CLAU, severe hyperkalemia, and significant urinary retention.
The patient was admitted to the intensive care unit in the setting of life-threatening hyperkalemia, anion gap metabolic acidosis, and florid CLAU. He is s/p 4 U pRBC.
On 09/20, labs continued to improve without dialysis, and patient downgraded to telemetry.
1. Acute Kidney Injury 2/2 Obstructive Uropathy
- PMHx of BPH, previously on medication, but stopped taking few years ago
- Labs on admission: BUN 172, creatinine 17, K 8.4, HCO3 6, AGAP 21, WBC 20.9 K
AM Labs (09/19): K 6.5, creatinine 13.2, and gap 14, WBC 13.8 K
AM Labs (09/20): K 5.9, creatinine 9.9, gap closed, WBC 12.1 K
AM Labs (09/21): K 5.2, creatinine 6.4, WBC 12.2K
- CT Abd/Pelv (09/18): Severe diffuse urinary bladder wall thickening, perivesical inflammation suggesting severe acute cystitis, moderate to severe bilateral hydroureteronephrosis, perinephric edema suggesting acute bilateral pyelonephritis,
severely enlarged prostate gland
- Appreciate Nephrology Recommendations: will still need to consider HD if Cr does not break below 3
- Continue Kenny; per urology recommendations, long course, will need to be discharged on Kenny
- PSA elevated (see below)
- Repeat BMP in PM
2. Severe Hyperkalemia (resolved)
- K on admission 8.4
- AM Labs (09/19): K 6.5
- AM Labs (09/20): K 5.9
- AM Labs (09/21): K 5.2
- Repeat labs in PM, if continues to normalize, d/c tele
- Initially on Calcium Gluconate, Bicarb, Insulin drip in ICU
- Continue to follow BMPs
- HD recommendations per nephrology
3. Acute Bilateral Pyelonephritis/Acute Severe Cystitis
- Empiric Abx with Zosyn -- narrowed to Ceftriaxone
- Ucx resulted no growth
- Continue in the setting leukocytosis for now, but suspect radiographic findings more likely from severe subacute distension/hydronephrosis
4. History of BPH/Elevated PSA
- Likely precipitating factor of all of the above.
- No longer on alpha sommer
- Appreciate Urology reccs
- PSA elevated; per urology: malignancy vs. postprocedure vs. distension injury; repeat in 3 weeks.
5. Acute Blood Loss Anemia
- Initial Hb 9, drop to 6 after Kenny drainage
- s/p 5U pRBC total
- Continue to Monitor H/H; transfuse for Hb < 7
6. NIDDM
- Diet Controlled
- HbA1c = 7.5
- AC insulin during admission, will need to consider terminal gauger management options in setting of this kidney injury.
7. Asymptomatic Hypocalcemia
- Calcium 6.8, corrected 8.1
- Electrolytes per Nephro
- Consider 25OH and 1,25OH Vit D testing, phosphate levels
CODE: Full
Diet: 2200 diabetic
DVT PPx: SCD
Anticipated Discharge: > 48 hours
Subjective/Interval History
-
Date of Service: September 21, 2025
Patient with no acute complaints overnight, states he is feeling well.
Required 1U pRBC overnight, denies dizziness, CP, SOB, palpitations.
Continues to have moderate volume of merlot-colored urine into FC, but denies abdominal pain, distension, flank pain.
Says belly feels softer than yesterday.
Objective Data
-
Labs:
Laboratory Results
09/21/25 09/21/25 09/21/25
06:30 06:58 07:19
WBC Cancelled 12.2 H
Hgb Cancelled 7.9 L
Hct Cancelled 23.0 L
Plt Count Cancelled 269
Sodium Cancelled 135
Potassium Cancelled 5.2 H
Chloride Cancelled 107
Carbon Dioxide Cancelled 17 L
BUN Cancelled 113 H*
Creatinine Cancelled 6.4 H*
Glucose Cancelled 111 H
Calcium Cancelled 6.8 L*
09/21/25
14:00
WBC Pending
Hgb Pending
Hct Pending
Plt Count Pending
Sodium Pending
Potassium Pending
Chloride Pending
Carbon Dioxide Pending
BUN Pending
Creatinine Pending
Glucose Pending
Calcium Pending
Vital Signs:
Vital Signs
Temp Pulse Resp BP Pulse Ox
98.3 F 78 12 161/74 98
09/21/25 07:00 09/21/25 07:00 09/21/25 07:00 09/21/25 07:00 09/21/25 07:00
I&O
09/20/25 09/21/25 09/22/25
06:59 06:59 06:59
Intake Total 6090 / 6265 5035 / 4495
Output Total 24375 / 12932 8300 / 8300
Balance -4410 / -4235 -3805 / -3805
Review of Systems
-
History Source: Patient
All other systems: Reviewed and negative
Physical Exam
-
General: No Apparent Distress and Comfortable
HEENT: Normocephalic, Atraumatic and Moist Mucous Membranes
Respiratory: Clear to Auscultation and Non Labored Respirations
Cardiac: Regular Rhythm and S1/S2
GI: Soft, Nontender, Nondistended and Normal Bowel Sounds
Genito-urinary: No Costovertebral Tender, Kenny (merlot-colored urine) and Other
Musculoskeletal: No Clubbing, No Cyanosis and No Edema
Skin: Warm
Neuro: Awake, Alert and Oriented
Psych: Calm
Data Reviewed
-
Labs: Labs Reviewed by me and Discussed with Patient
[2025-09-21 11:50] LABS: Glucose - Point of Care 203 mg/dl (70-99)
--- NOTE | 2025-09-21 12:14 | W.PN.NEPH.PH ---
Today's Communication / Plan
-
reduce IVF
Assessment/Plan
-
Impression
acute kidney injury.
Hyperkalemia 8.
Obstructive uropathy.
Metabolic acidosis.
Plan
Reina catheter
reduce IVF
replete K
follow BMP
he may still need HD if Cr fails to improve to < 3
-
-
Date of Service: September 21, 2025
CC / HPI / ROS
-
Chief Complaint:
CLAU
History of Present Illness:
CLAU/Cr down to 6.8
BUN down to 133
K 5.2
Calcium low 6.[address]
Review of Systems:
No chest pain or shortness of breath
Nonoliguric
Labs
-
Labs:
eGFR 8.78 09/21/25 07:19
Phosphorus 8.1 mg/dl (2.5-4.5) H 09/18/25 20:21
Albumin 2.4 g/dl (3.5-5.0) L 09/20/25 04:59
Physical Exam
-
Vital Signs:
Vital Signs
Temp Pulse Resp BP Pulse Ox
98.2 F 75 16 176/78 98
09/21/25 11:05 09/21/25 11:05 09/21/25 11:05 09/21/25 11:05 09/21/25 11:05
Cardiovascular:: Regular rate and rhythm
Respiratory:: Bilateral: CTA
Lung Excursion:: Normal
Abdomen:: Nontender and Soft
Bowel Sounds:: Normal
Extremity Edema:: None: Bilateral:
[2025-09-21] MEDS: NOVOLOG FLEXPEN-LOW RESISTANCE 2 UNITS SC (12:19)
[2025-09-21] MEDS: CALCIUM GLUCONATE 290 MG IV ×2 (12:59→15:33)
--- NOTE | 2025-09-21 13:01 | PN.CDI ---
CDI
- -
CDI:
Physician Documentation Request
Admit Date: 09/18/25 15:[address] Calderon,
[facility] is using an adapted version of the 2016 Third International Consensus Definitions for Sepsis and Septic Shock (Sepsis-3) where sepsis is defined as life threatening organ dysfunction caused by a deregulated host response to infection.
Please reference the official [facility] Sepsis Recognition Tool for further information, which can be found on the Intranet under Infection Prevention.
Progress Notes: Include diagnosis Acute Bilateral Pyelonephritis/Acute Severe Cystitis, CLAU 2/2 obstructive uropathy
Labs on admission
WBC: 20.9
Creatinine:17.0
INR:1.56
Treatment: Empiric abx with Zosyn narrowed to Ceftriaxone.
Based on your medical judgment, can you further clarify the diagnosis being monitored/treated this admission?
� Sepsis due to Acute Bilateral Pyelonephritis/Acute Severe Cystitis with organ dysfunction of CLAU
� Acute Bilateral Pyelonephritis/Acute Severe Cystitis only
� Other
� Clinically unable to determine
Use of terms such as suspected, likely, concern for, or probable (associated with a specific diagnosis that is being evaluated, monitored, or treated as if it exists) are acceptable and can be coded in the inpatient setting when documented at the
time of discharge.
Please use your independent medical judgement in providing your response.
Thank you,
Zohreh Alas RN BSN
CDI Specialist
tiger text
[2025-09-21] MEDS: 0.45%NACL IV (13:07)
[2025-09-21] MEDS: SENOKOT-S 1 TABLET PO (13:08)
[2025-09-21 14:07] LABS: Hematocrit 25.0 % (39.0-52.0); Hemoglobin 8.3 g/dL (13.0-18.0); Mean Corp Hgb Conc. 33.2 g/dL (33.0-37.0); Mean Corpuscular Volume 85.0 fL (80.0-94.0); Platelet Count 272 10^3/uL (130-400); Red Cell Dist. Width 15.6 % (11.5-14.5)
--- NOTE | 2025-09-21 14:19 | CM ---
manager sales and marketing reviewed patient's chart and met with patient and patient has no insurance Per [employer] patient does not qualify for Medicaid as his income is too high, patient will have to purchase his own insurance.
Plan; To follow with patient progress acute HD?
[2025-09-21 14:39] LABS: Blood Urea Nitrogen 105 mg/dl (9-20); Calcium 7.6 mg/dl (8.4-10.2); Carbon Dioxide 22 mmol/L (22-30); Chloride 104 mmol/L (98-107); Estimated Creatinine Clearance 13 ml/min; Glucose 154 mg/dl (70-99); Potassium 5.1 mmol/L (3.5-5.1); Sodium 135 mmol/L (135-145); eGFR 9.30
[2025-09-21 16:49] LABS: Glucose - Point of Care 161 mg/dl (70-99)
[2025-09-21] MEDS: NOVOLOG FLEXPEN-LOW RESISTANCE 1 UNITS SC (17:27)
[2025-09-21 22:27] LABS: Glucose - Point of Care 222 mg/dl (70-99)
[2025-09-22] VITALS (7 sets, daily range): BP systolic 138–171; BP diastolic 68–73; PULSE 84; O2SAT 99
--- NOTE | 2025-09-22 02:59 | PTCARENOTE ---
Patient`s Kenny irrigated due to jacobs of output. Patient was not distended and denied pain. No clots noted in previous output. RN irrigated Kenny per MD order, no clots noted. Kenny draining within limits.
[2025-09-22] MEDS: 0.45%NACL 1000 IV ×2 (03:02→17:28)
[2025-09-22 07:27] LABS: Glucose - Point of Care 167 mg/dl (70-99)
--- NOTE | 2025-09-22 08:08 | W.PN.HOSP.TC ---
Today's Communication/Plan
-
Abdomen XR
Bowel Regimen
Continue to monitor Cr, electrolytes, Hb, Kenny output
Nephrology/Urology evaluation
Transition of care planning
Assessment / Plan
Assessment / Plan
Modesto Valenzuela is a 70M w/ PMHx of diet controlled DM and BPH who presented to the emergency department with mild abdominal pain in the setting of anuria for 2 days and found to have florid CLAU, severe hyperkalemia, and significant urinary retention.
The patient was admitted to the intensive care unit in the setting of life-threatening hyperkalemia, anion gap metabolic acidosis, and florid CLAU. He is s/p 4 U pRBC.
On 09/20, labs continued to improve without dialysis, and patient downgraded to telemetry.
1. Acute Kidney Injury 2/2 Obstructive Uropathy
- PMHx of BPH, previously on medication, but stopped taking few years ago
- Labs on admission: BUN 172, creatinine 17, K 8.4, HCO3 6, AGAP 21, WBC 20.9 K
AM Labs (09/19): K 6.5, creatinine 13.2, and gap 14, WBC 13.8 K
AM Labs (09/20): K 5.9, creatinine 9.9, gap closed, WBC 12.1 K
AM Labs (09/21): K 5.2, creatinine 6.4, WBC 12.2K
AM Labs (09/22): K 5.5, creatinine 5.2, WBC 16K
- CT Abd/Pelv (09/18): Severe diffuse urinary bladder wall thickening, perivesical inflammation suggesting severe acute cystitis, moderate to severe bilateral hydroureteronephrosis, perinephric edema suggesting acute bilateral pyelonephritis,
severely enlarged prostate gland
- Appreciate Nephrology Recommendations: will still need to consider HD if Cr does not break below 3
- Patient has no insurance, so outpatient HD options are limited
- Continue Kenny; per urology recommendations, long course, will need to be discharged on Kenny
- PSA elevated (see below)
- Repeat BMP in PM
2. Severe Hyperkalemia (resolved)
- K on admission 8.4
- AM Labs (09/19): K 6.5
- AM Labs (09/20): K 5.9
- AM Labs (09/21): K 5.2
- AM Labs (09/22): k 5.5
- Slight bump this AM, will recheck PM Labs
- Initially on Calcium Gluconate, Bicarb, Insulin drip in ICU
- Continue to follow BMPs
- HD recommendations per nephrology
3. Acute Bilateral Pyelonephritis/Acute Severe Cystitis
- Empiric Abx with Zosyn -- narrowed to Ceftriaxone
- Ucx resulted no growth
- Was hopeful we could d/c abx today, since clinically he does not appear infectious, but WBC uptick today so will keep them on
- Radiographic evidence of cystitis and pyelo may be 2/2 severe hydronephrosis in the setting of obstructive uropathy, but WBC remains elevated; afebrile.
4. History of BPH/Elevated PSA
- Likely precipitating factor of all of the above.
- No longer on alpha sommer
- Appreciate Urology reccs
- PSA elevated; per urology: malignancy vs. postprocedure vs. distension injury; repeat in 3 weeks.
- Prostate 250g; continue medications but will likely need invasive intervention in future
5. Acute Blood Loss Anemia
- Initial Hb 9, drop to 6 after Kenny drainage
- s/p 5U pRBC total
- Continue to Monitor H/H; transfuse for Hb < 7
6. NIDDM
- Diet Controlled
- HbA1c = 7.5
- AC insulin during admission, will need to consider long term acute care registered nurse management options in setting of this kidney injury.
7. Asymptomatic Hypocalcemia
- Calcium 6.8, corrected 8.1
- Electrolytes per Nephro
- Consider 25OH and 1,25OH Vit D testing, phosphate levels
8. Constipation
- Endorses no full BMs since 5 days ago, states that he is passing gas with streaks of stool occasionally.
- Differential includes obstructive constipation 2/2 enlarged prostate or functional constipation in the setting of NPO/hospitalization
- XR shows moderate fecal burden
- Hopefully increased recent mobility and reintroduction of solid foods allow for passage of stool
- Patient declines miralax, PRN bowel regimen otherwise provided
CODE: Full
Diet: 2199 diabetic
DVT PPx: SCD
Anticipated Discharge: 24 - 48 hours
Subjective/Interval History
-
Date of Service: September 22, 2025
Patient seen and examined while resting comfortably in bed.
Patient states that he is feeling better than past days, more energetic.
Patient denies chest pain, abdominal pain.
Notes he has not had a real bowel movement since Thursday or Thursday. Has had a couple of smears since admission.
Was NPO for first couple of days of admission. Started eating yesterday. Tolerating diet, passing gas.
Patient does not have established outpatient care in the area, though his return to [facility] is open ended.
Objective Data
-
Labs:
Laboratory Results
09/22/25
06:00
WBC Pending
Hgb Pending
Hct Pending
Plt Count Pending
Sodium Pending
Potassium Pending
Chloride Pending
Carbon Dioxide Pending
BUN Pending
Creatinine Pending
Glucose Pending
Calcium Pending
Vital Signs:
Vital Signs
Temp Pulse Resp BP Pulse Ox
98.2 F 77 17 163/70 97
09/22/25 07:45 09/22/25 07:45 09/22/25 07:45 09/22/25 07:45 09/22/25 07:45
I&O
09/21/25 09/22/25 09/23/25
06:59 06:59 06:59
Intake Total 4495 / 4495 2630 / 2630
Output Total 8300 / 8300 7725 / 7725
Balance -3805 / -3805 -5095 / -5095
Review of Systems
-
History Source: Patient
All other systems: Reviewed and negative
Physical Exam
-
General: Well Developed, Well Nourished, No Apparent Distress, Comfortable and Conversant
HEENT: Normocephalic, Atraumatic and Moist Mucous Membranes
Respiratory: Clear to Auscultation and Non Labored Respirations; Negative Wheezes, Rales, Rhonchi or Crackles
Cardiac: Regular Rhythm and S1/S2
GI: Soft, Nontender, Nondistended and Normal Bowel Sounds
Genito-urinary: No Costovertebral Tender and Kenny (continued Merlot colored drainage)
Musculoskeletal: No Clubbing, No Cyanosis and No Edema
Skin: Warm and Dry
Neuro: Awake and Alert
Psych: Calm
Data Reviewed
-
Diagnostic Radiology: Image personally visualized and interpreted and Report Reviewed by me
Labs: Labs Reviewed by me and Discussed with Patient
[2025-09-22] MEDS: FLOMAX 0.4 MG PO (08:46)
[2025-09-22] MEDS: NOVOLOG FLEXPEN 6 UNITS SC ×3 (08:46→17:28)
[2025-09-22] MEDS: PROSCAR 5 MG PO (08:46)
[2025-09-22] MEDS: NOVOLOG FLEXPEN-LOW RESISTANCE 1 UNITS SC (08:47)
[2025-09-22 09:14] LABS: Hematocrit 26.4 % (39.0-52.0); Hemoglobin 8.4 g/dL (13.0-18.0); Mean Corp Hgb Conc. 31.8 g/dL (33.0-37.0); Mean Corpuscular Volume 88.3 fL (80.0-94.0); Platelet Count 293 10^3/uL (130-400); Red Cell Dist. Width 15.5 % (11.5-14.5)
[2025-09-22 09:37] LABS: Blood Urea Nitrogen 100 mg/dl (9-20); Calcium 7.7 mg/dl (8.4-10.2); Carbon Dioxide 23 mmol/L (22-30); Chloride 106 mmol/L (98-107); Estimated Creatinine Clearance 16 ml/min; Glucose 133 mg/dl (70-99); Potassium 5.5 mmol/L (3.5-5.1); Sodium 136 mmol/L (135-145); eGFR 11.27
[2025-09-22 11:34] LABS: Glucose - Point of Care 239 mg/dl (70-99)
--- NOTE | 2025-09-22 11:52 | W.PN.URO.CBU ---
Today's Communication / Plan
-
teach pt reina and leg ag josé miguel
Assessment / Plan
-
1. Prostatomegaly -- ~ [address] dimensions
2. Obstructive Uropathy due to #1
3. Hematuria from venous bleeding due to decompression of chronically distended urinary bladder
4. Post-obstructive diuresis -- likely will persist for prolonged period
5. Anemia -- secondary to renal failure
6 ELEVATED PSA -- might be indicative of prostate cancer, but also could be due to prostate inflammation/catheterization
Renal function is steadily improving
Diagnosis
-
Date of Service: September 22, 2025
-
Patient Diagnosis:
Post Op Day:
Patient Diagnosis:
Post Op Day:
Patient Diagnosis:
1. Prostatomegaly -- ~ [address] dimensions
2. Obstructive Uropathy due to #1
3. Hematuria from venous bleeding due to decompression of chronically distended urinary bladder
4. Post-obstructive diuresis --
5. Anemia
6 ELEVATED PSA -- might be indicative of prostate cancer, but also could be due to prostate inflammation/catheterization
Subjective
-
feeling better
Objective
-
Vital Signs
Temp Pulse Resp BP Pulse Ox
98.7 F 78 17 168/68 98
09/22/25 11:18 09/22/25 11:18 09/22/25 11:18 09/22/25 11:18 09/22/25 11:18
Intake and Output
09/21/25 09/22/25 09/23/25
06:59 06:59 06:59
Intake Total 4495 / 4495 2630 / 2630
Output Total 8300 / 8300 7725 / 7725
Balance -3805 / -3805 -5095 / -5095
Intake:
Oral fluids 1360 / 1360 1760 / 1760
IV fluids (Total) 2550 / 2550 840 / 840
NSS 1050 / 1050
IV piggybacks 235 / 235
Reina intermittent irrigation 30 / 30
Blood Products 100 / 100
Albumin 100 / 100
Blood Product Amount Infused ( 250 / 250
mL)
Packed Rbc Leukoreduced Unit 250 / 250
[id number]
Output:
Urine, Reina 6600 / 6600 7725 / 7725
Urine, Voided 1700 / 1700
Laboratory Results
09/22/25 08:09
09/22/25 08:09
Review of Systems
-
: Difficulty Voiding and Bleeding
Physical Exam
-
General - well developed, well nourished, no acute distress
Chest - clear bilaterally
Abdomen - soft, non-tender, positive bowel sounds, no CVAT, no incisional pain or distention
Genitalia - normal
Rectal - normal
Skin - warm & dry with no rash
Neuro - AOx3, no motor deficits
Extremities - no clubbing, no cyanosis, no edema
Incision - clean, dry
Dressing - clean, dry, intact
Counseling
-
teac=h leg bag and reina bag care
Care Review
Data Reviewed
Discussed with: Internal Medicine
[2025-09-22] MEDS: ROCEPHIN 2000 MG IV (12:10)
[2025-09-22] MEDS: STERILE WATER FOR INJECTION 20 ML IV (12:10)
[2025-09-22] MEDS: NOVOLOG FLEXPEN-LOW RESISTANCE 2 UNITS SC ×2 (12:11→17:28)
[2025-09-22 14:14] LABS: Hematocrit 24.7 % (39.0-52.0); Hemoglobin 8.1 g/dL (13.0-18.0); Mean Corp Hgb Conc. 32.8 g/dL (33.0-37.0); Mean Corpuscular Volume 86.4 fL (80.0-94.0); Platelet Count 348 10^3/uL (130-400); Red Cell Dist. Width 15.3 % (11.5-14.5)
--- NOTE | 2025-09-22 14:14 | W.PN.NEPH.PH ---
Today's Communication / Plan
-
IV fluids
Assessment/Plan
-
Impression
acute kidney injury.
Hyperkalemia 8.
Obstructive uropathy.
Metabolic acidosis.
Plan
Reina catheter
Continue IV fluid
replete K
follow BMP
he may still need HD if Cr fails to improve to < 3
Overall feeling much better
-
-
Date of Service: September 22, 2025
CC / HPI / ROS
-
Chief Complaint:
CLAU
History of Present Illness:
CLAU/Cr down to 6.8
BUN down to 133
K 5.2
Calcium low 6.[address]
Review of Systems:
No chest pain or shortness of breath
Nonoliguric
Labs
-
Labs:
eGFR 11.27 09/22/25 08:09
Phosphorus 8.1 mg/dl (2.5-4.5) H 09/18/25 20:21
Albumin 2.4 g/dl (3.5-5.0) L 09/20/25 04:59
Physical Exam
-
Vital Signs:
Vital Signs
Temp Pulse Resp BP Pulse Ox
98.7 F 78 17 168/68 98
09/22/25 11:18 09/22/25 11:18 09/22/25 11:18 09/22/25 11:18 09/22/25 11:18
Cardiovascular:: Regular rate and rhythm
Respiratory:: Bilateral: CTA
Lung Excursion:: Normal
Abdomen:: Nontender and Soft
Bowel Sounds:: Normal
Extremity Edema:: None: Bilateral:
--- NOTE | 2025-09-22 14:30 | TRANSFER ---
Patient's Reina with scant output. Per orders, reina irrigated with 10 ml saline. No clots when irrigated. Reina now draining brown/red urine, emptied for 2000 ml.
[2025-09-22 14:51] LABS: Blood Urea Nitrogen 98 mg/dl (9-20); Calcium 7.8 mg/dl (8.4-10.2); Carbon Dioxide 22 mmol/L (22-30); Chloride 104 mmol/L (98-107); Estimated Creatinine Clearance 16 ml/min; Glucose 155 mg/dl (70-99); Potassium 5.4 mmol/L (3.5-5.1); Sodium 134 mmol/L (135-145); eGFR 11.53
[2025-09-22 16:52] LABS: Glucose - Point of Care 238 mg/dl (70-99)
--- NOTE | 2025-09-22 16:53 | CM ---
Chart reviewed patient has limited options without insurance. Will follow.
Plan; To follow patient progress.
[2025-09-22 22:41] LABS: Glucose - Point of Care 237 mg/dl (70-99)
[2025-09-23] VITALS (9 sets, daily range): BP systolic 117–164; BP diastolic 58–81
[2025-09-23 06:44] LABS: Hematocrit 22.1 % (39.0-52.0); Hemoglobin 7.3 g/dL (13.0-18.0); Mean Corp Hgb Conc. 33.0 g/dL (33.0-37.0); Mean Corpuscular Volume 85.3 fL (80.0-94.0); Platelet Count 287 10^3/uL (130-400); Red Cell Dist. Width 15.3 % (11.5-14.5)
[2025-09-23 07:15] LABS: Blood Urea Nitrogen 90 mg/dl (9-20); Calcium 7.0 mg/dl (8.4-10.2); Carbon Dioxide 20 mmol/L (22-30); Chloride 110 mmol/L (98-107); Estimated Creatinine Clearance 19 ml/min; Glucose 165 mg/dl (70-99); Potassium 5.1 mmol/L (3.5-5.1); Sodium 140 mmol/L (135-145); eGFR 14.15
[2025-09-23 07:51] LABS: Glucose - Point of Care 152 mg/dl (70-99)
[2025-09-23] MEDS: NOVOLOG FLEXPEN 6 UNITS SC ×3 (09:16→18:35)
[2025-09-23] MEDS: NOVOLOG FLEXPEN-LOW RESISTANCE 1 UNITS SC ×2 (09:16→18:35)
[2025-09-23] MEDS: ROCEPHIN 2000 MG IV (09:17)
[2025-09-23] MEDS: PROSCAR 5 MG PO (09:17)
[2025-09-23] MEDS: FLOMAX 0.4 MG PO (09:17)
[2025-09-23] MEDS: STERILE WATER FOR INJECTION 20 ML IV (09:18)
[2025-09-23 12:08] LABS: Glucose - Point of Care 204 mg/dl (70-99)
[2025-09-23] MEDS: NOVOLOG FLEXPEN-LOW RESISTANCE 2 UNITS SC (12:21)
--- NOTE | 2025-09-23 12:53 | W.PN.HOSP.TC ---
Today's Communication/Plan
-
Assessment / Plan
Assessment / Plan
General: No Apparent Distress, Comfortable and Conversant
HEENT: NormoCephalic, Moist mucous membranes, Atraumatic
Respiratory: Clear and Non Labored Respirations
Cardiac: S1/S2 and Regular Rhythm; No Rub or Gallop
GI: Soft, normal bowel sounds
Musculoskeletal: No Edema, no deformity
Skin: Warm and dry
: Kenny draining dark-colored urine, hematuria appears to be resolving
Neuro: Awake, Alert, Nonfocal/grossly intact
Psych: Calm and cooperative
Modesto Valenzuela is a 70M w/ PMHx of diet controlled DM and BPH who presented to the emergency department with mild abdominal pain in the setting of anuria for 2 days and found to have florid CLAU, severe hyperkalemia, and significant urinary retention.
The patient was admitted to the intensive care unit in the setting of life-threatening hyperkalemia, anion gap metabolic acidosis, and florid CLAU. He is s/p 4 U pRBC.
On 09/20, labs continued to improve without dialysis, and patient downgraded to telemetry.
1. Acute Kidney Injury 2/2 Obstructive Uropathy
- PMHx of BPH, previously on medication, but stopped taking few years ago
- Labs on admission: BUN 172, creatinine 17, K 8.4, HCO3 6, AGAP 21, WBC 20.9 K
AM Labs (09/19): K 6.5, creatinine 13.2, and gap 14, WBC 13.8 K
AM Labs (09/20): K 5.9, creatinine 9.9, gap closed, WBC 12.1 K
AM Labs (09/21): K 5.2, creatinine 6.4, WBC 12.2K
AM Labs (09/22): K 5.5, creatinine 5.2, WBC 16K
AM Labs (09/23): K 5.1, creatinine 4.3, WBC 16K
- CT Abd/Pelv (09/18): Severe diffuse urinary bladder wall thickening, perivesical inflammation suggesting severe acute cystitis, moderate to severe bilateral hydroureteronephrosis, perinephric edema suggesting acute bilateral pyelonephritis,
severely enlarged prostate gland
- Appreciate Nephrology Recommendations: will still need to consider HD if Cr does not break below 3
- Patient has no insurance, so outpatient HD options are limited
- Continue Kenny; per urology recommendations, long course, will need to be discharged on Kenny
- PSA elevated (see below)
- Repeat BMP in PM
2. Severe Hyperkalemia (resolved)
- K on admission 8.4
- AM Labs (09/19): K 6.5
- AM Labs (09/20): K 5.9
- AM Labs (09/21): K 5.2
- AM Labs (09/22): k 5.5
- AM Labs (09/23): k 5.1
- Slight bump this AM, will recheck PM Labs
- Initially on Calcium Gluconate, Bicarb, Insulin drip in ICU now discontinued
- Continue to follow BMPs
- HD recommendations per nephrology
3. Acute Bilateral Pyelonephritis/Acute Severe Cystitis
- Empiric Abx with Zosyn -- narrowed to Ceftriaxone
- Ucx resulted no growth
- Was hopeful we could d/c abx since clinically he does not appear infectious, but WBC uptick so will keep them on likely for 1 more day to complete 7-day course on 09/24
- Radiographic evidence of cystitis and pyelo may be 2/2 severe hydronephrosis in the setting of obstructive uropathy, but WBC remains elevated; afebrile.
4. History of BPH/Elevated PSA
- Likely precipitating factor of all of the above.
- No longer on alpha sommer
- Appreciate Urology reccs
- PSA elevated; per urology: malignancy vs. postprocedure vs. distension injury; repeat in 3 weeks.
- Prostate 250g; continue medications but will likely need invasive intervention in future
5. Acute Blood Loss Anemia
- Initial Hb 9, drop to 6 after Kenny drainage with significant hematuria
- s/p 5U pRBC total, hematuria now appears to be slowly resolving
- Hemoglobin continues to drift down, was 7.3 on labs this morning
- Will transfuse 1 unit PRBCs now for total of 5 units transfused this admission
- Suspect patient likely has some degree of anemia of chronic disease due to his renal function
- Continue to Monitor H/H; transfuse for Hb < 7
6. NIDDM
- Diet Controlled
- HbA1c = 7.5
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
7. Asymptomatic Hypocalcemia
- Calcium close to within normal limits when corrected for hypoalbuminemia
- Electrolytes per Nephro
- Consider 25OH and 1,25OH Vit D testing, phosphate levels
8. Constipation
- Endorses no full BMs since 5 days prior to arrival, states that he is passing gas with streaks of stool occasionally.
- Differential includes obstructive constipation 2/2 enlarged prostate or functional constipation in the setting of NPO/hospitalization
- XR shows moderate fecal burden
- Hopefully increased recent mobility and reintroduction of solid foods allow for passage of stool
- Patient declines miralax, PRN bowel regimen otherwise provided
CODE: Full
Diet: 0 diabetic
DVT PPx: SCD
Anticipated Discharge: > 48 hours
Subjective/Interval History
-
Date of Service: September 23, 2025
Patient was seen and examined at bedside this morning. Continues to improve clinically, feeling more energetic today. Hemoglobin continues to drift down however hematuria appears to be improving.
Objective Data
-
Labs:
Laboratory Results
09/23/25
05:43
WBC 15.9 H
Hgb 7.3 L
Hct 22.1 L
Plt Count 287
Sodium 140
Potassium 5.1
Chloride 110 H
Carbon Dioxide 20 L
BUN 90 H
Creatinine 4.3 H*
Glucose 165 H
Calcium 7.0 L
Vital Signs:
Vital Signs
Temp Pulse Resp BP Pulse Ox
98.2 F 86 18 117/58 98
09/23/25 11:29 09/23/25 11:29 09/23/25 11:29 09/23/25 11:29 09/23/25 11:29
I&O
09/22/25 09/23/25 09/24/25
06:59 06:59 06:59
Intake Total 2630 / 2630 2550 / 2550
Output Total 7725 / 7725 4000 / 4000
Balance -5095 / -5095 -1450 / -1450
Review of Systems
-
History Source: Patient
All other systems: Reviewed and negative
Physical Exam
-
General: No Apparent Distress
[2025-09-23 17:20] LABS: Glucose - Point of Care 191 mg/dl (70-99)
[2025-09-23 21:15] LABS: Glucose - Point of Care 226 mg/dl (70-99)
[2025-09-24] VITALS (7 sets, daily range): BP systolic 129–172; BP diastolic 58–82
[2025-09-24 07:58] LABS: Glucose - Point of Care 165 mg/dl (70-99)
[2025-09-24] MEDS: NOVOLOG FLEXPEN 6 UNITS SC ×3 (08:38→16:53)
[2025-09-24] MEDS: FLOMAX 0.4 MG PO (08:38)
[2025-09-24] MEDS: PROSCAR 5 MG PO (08:38)
[2025-09-24] MEDS: NOVOLOG FLEXPEN-LOW RESISTANCE 1 UNITS SC (08:39)
[2025-09-24 10:02] LABS: Hematocrit 27.6 % (39.0-52.0); Hemoglobin 8.9 g/dL (13.0-18.0); Mean Corp Hgb Conc. 32.2 g/dL (33.0-37.0); Mean Corpuscular Volume 89.3 fL (80.0-94.0); Nucleated Red Blood Cells % 0 % (-); Platelet Count 332 10^3/uL (130-400); Red Cell Dist. Width 15.2 % (11.5-14.5)
[2025-09-24 10:24] LABS: Blood Urea Nitrogen 86 mg/dl (9-20); Calcium 7.4 mg/dl (8.4-10.2); Carbon Dioxide 21 mmol/L (22-30); Chloride 105 mmol/L (98-107); Estimated Creatinine Clearance 19 ml/min; Glucose 191 mg/dl (70-99); Potassium 5.2 mmol/L (3.5-5.1); Sodium 135 mmol/L (135-145); eGFR 14.56
[2025-09-24] MEDS: STERILE WATER FOR INJECTION 20 ML IV (11:18)
[2025-09-24] MEDS: ROCEPHIN 2000 MG IV (11:31)
[2025-09-24 12:00] LABS: Glucose - Point of Care 253 mg/dl (70-99)
[2025-09-24] MEDS: NOVOLOG FLEXPEN-LOW RESISTANCE 3 UNITS SC (12:18)
--- NOTE | 2025-09-24 14:03 | W.PN.HOSP.TC ---
Today's Communication/Plan
-
Assessment / Plan
Assessment / Plan
General: No Apparent Distress, Comfortable and Conversant
HEENT: NormoCephalic, Moist mucous membranes, Atraumatic
Respiratory: Clear and Non Labored Respirations
Cardiac: S1/S2 and Regular Rhythm; No Rub or Gallop
GI: Soft, normal bowel sounds
Musculoskeletal: No Edema, no deformity
Skin: Warm and dry
: Kenny draining punch-colored urine, hematuria appears to be resolving
Neuro: Awake, Alert, Nonfocal/grossly intact
Psych: Calm and cooperative
Modesto Valenzuela is a 70M w/ PMHx of diet controlled DM and BPH who presented to the emergency department with mild abdominal pain in the setting of anuria for 2 days and found to have florid CLAU, severe hyperkalemia, and significant urinary retention.
The patient was admitted to the intensive care unit in the setting of life-threatening hyperkalemia, anion gap metabolic acidosis, and florid CLAU. He is s/p 4 U pRBC.
On 09/20, labs continued to improve without dialysis, and patient downgraded to telemetry.
1. Acute Kidney Injury 2/2 Obstructive Uropathy
- PMHx of BPH, previously on medication, but stopped taking few years ago
- Labs on admission: BUN 172, creatinine 17, K 8.4, HCO3 6, AGAP 21, WBC 20.9 K
- CT Abd/Pelv (09/18): Severe diffuse urinary bladder wall thickening, perivesical inflammation suggesting severe acute cystitis, moderate to severe bilateral hydroureteronephrosis, perinephric edema suggesting acute bilateral pyelonephritis,
severely enlarged prostate gland
- Creatinine has been steadily improving, although appears to have somewhat plateaued with a creatinine of 4.2 today
- Appreciate Nephrology Recommendations: will still need to consider HD if Cr does not break below 3
- Patient has no insurance, so outpatient HD options are limited
- Continue Kenny; per urology recommendations, long course, will need to be discharged on Kenny
- PSA elevated (see below)
- Repeat BMP in PM
2. Severe Hyperkalemia (resolved)
- K on admission 8.4
- Significant improved, 5.2 on labs this morning
- Initially on Calcium Gluconate, Bicarb, Insulin drip in ICU now discontinued
- Continue to follow BMPs
- HD recommendations per nephrology
3. Acute Bilateral Pyelonephritis/Acute Severe Cystitis
- Empiric Abx with Zosyn -- narrowed to Ceftriaxone
- Ucx resulted no growth
- Was hopeful we could d/c abx since clinically he does not appear infectious, but WBC uptick so will keep them on to complete 7-day course on 09/24
- Radiographic evidence of cystitis and pyelo may be 2/2 severe hydronephrosis in the setting of obstructive uropathy, but WBC remains elevated; afebrile.
4. History of BPH/Elevated PSA
- Likely precipitating factor of all of the above.
- No longer on alpha sommer
- Appreciate Urology reccs
- PSA elevated; per urology: malignancy vs. postprocedure vs. distension injury; repeat in 3 weeks.
- Prostate 250g; continue medications but will likely need invasive intervention in future
5. Acute Blood Loss Anemia
- Initial Hb 9, drop to 6 after Kenny drainage with significant hematuria, transfused PRBCs
- Hematuria now appears to be slowly resolving
- Hemoglobin drifted down to 7.3 on labs yesterday morning 09/23, transfused 1 more unit PRBCs, hemoglobin improved to 8.9
- Patient is now status post transfusion 6 units PRBCs total during this admission
- Suspect patient likely has some degree of anemia of chronic disease due to his renal function
- Continue to Monitor H/H; transfuse for Hb < 7
6. NIDDM
- Diet Controlled
- HbA1c = 7.5
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
7. Asymptomatic Hypocalcemia
- Calcium close to within normal limits when corrected for hypoalbuminemia
- Electrolytes per Nephro
- Consider 25OH and 1,25OH Vit D testing, phosphate levels
8. Constipation
- Endorses no full BMs since 5 days prior to arrival, states that he is passing gas with streaks of stool occasionally.
- Differential includes obstructive constipation 2/2 enlarged prostate or functional constipation in the setting of NPO/hospitalization
- XR shows moderate fecal burden
- Hopefully increased recent mobility and reintroduction of solid foods allow for passage of stool
- Patient declines miralax, PRN bowel regimen otherwise provided
CODE: Full
Diet: 0 diabetic
DVT PPx: SCD
Anticipated Discharge: > 48 hours
Subjective/Interval History
-
Date of Service: September 24, 2025
Patient was seen and examined at bedside this morning. No acute events overnight. Feeling well this morning.
Objective Data
-
Labs:
Laboratory Results
09/24/25
09:32
WBC 19.1 H
Hgb 8.9 L D
Hct 27.6 L
Plt Count 332
Sodium 135
Potassium 5.2 H
Chloride 105
Carbon Dioxide 21 L
BUN 86 H
Creatinine 4.2 H*
Glucose 191 H
Calcium 7.4 L
Vital Signs:
Vital Signs
Temp Pulse Resp BP Pulse Ox
98.0 F 72 18 139/58 98
09/24/25 11:48 09/24/25 11:48 09/24/25 11:48 09/24/25 11:48 09/24/25 11:48
I&O
09/23/25 09/24/25 09/25/25
06:59 06:59 06:59
Intake Total 2550 / 2550 1770 / 1770
Output Total 4000 / 4000 5250 / 5250
Balance -1450 / -1450 -3480 / -3480
Review of Systems
-
History Source: Patient
All other systems: Reviewed and negative
Physical Exam
-
General: No Apparent Distress
[2025-09-24 16:50] LABS: Glucose - Point of Care 231 mg/dl (70-99)
[2025-09-24] MEDS: NOVOLOG FLEXPEN-LOW RESISTANCE 2 UNITS SC (16:52)
[2025-09-24 23:02] LABS: Glucose - Point of Care 147 mg/dl (70-99)
[2025-09-25] VITALS (7 sets, daily range): BP systolic 140–173; BP diastolic 60–75; PULSE 78; O2SAT 96
[2025-09-25] MEDS: FLOMAX 0.4 MG PO (07:28)
[2025-09-25] MEDS: PROSCAR 5 MG PO (07:28)
[2025-09-25 07:43] LABS: Glucose - Point of Care 137 mg/dl (70-99)
[2025-09-25] MEDS: NOVOLOG FLEXPEN 6 UNITS SC ×3 (07:43→17:06)
[2025-09-25] MEDS: NOVOLOG FLEXPEN-LOW RESISTANCE SC (07:44)
[2025-09-25 08:42] LABS: Hematocrit 28.6 % (39.0-52.0); Hemoglobin 8.7 g/dL (13.0-18.0); Mean Corp Hgb Conc. 30.4 g/dL (33.0-37.0); Mean Corpuscular Volume 92.6 fL (80.0-94.0); Nucleated Red Blood Cells % 0 % (-); Platelet Count 314 10^3/uL (130-400); Red Cell Dist. Width 15.2 % (11.5-14.5)
[2025-09-25 09:14] LABS: Blood Urea Nitrogen 86 mg/dl (9-20); Calcium 7.3 mg/dl (8.4-10.2); Carbon Dioxide 20 mmol/L (22-30); Chloride 105 mmol/L (98-107); Estimated Creatinine Clearance 20 ml/min; Glucose 127 mg/dl (70-99); Potassium 5.3 mmol/L (3.5-5.1); Sodium 135 mmol/L (135-145); eGFR 14.99
[2025-09-25 09:17] LABS: Albumin 3.4 g/dl (3.5-5.0)
--- NOTE | 2025-09-25 11:17 | W.PN.HOSP.TC ---
Addendum entered and electronically signed by Collin Alvarado MD 09/25/25 14:42:
Attending�addendum:
I saw and evaluated the patient. I reviewed the resident�s note and agree with findings and plan as documented in the resident�s note.��patient seen and examined at bedside, denies any chest pain or shortness of breath, no abdominal pain, no nausea,
no vomiting, no diarrhea or constipation.
Physical�exam:
GENERAL : Patient is awake, alert, oriented x3
HEENT: Nonicteric sclerae, PERRLA, EOMI. Oropharynx clear. Moist mucous membranes. Conjunctivae appear well perfused.
CHEST: Chest wall is nontender.
HEART: Regular rate and rhythm without murmurs.
LUNGS: Clear to auscultation bilaterally.
ABDOMEN: Soft, positive bowel sounds, nontender, no organomegaly.
RECTAL: Deferred.
MUSCLES/EXTREMITIES: No abnormal range of motion, no swelling.SKIN: No rash, no excessive bruising, petechiae, or purpura.
NEUROLOGIC: Cranial nerves II-XII intact without motor/sensory deficit.
�
Assessment/plan:
Acute kidney injury secondary to obstructive uropathy.
Creatinine continue to improve.
Continue Kenny.
Follow-up with urology/nephrology recommendations
Severe hyperkalemia.
Improved
Acute bilateral pyelonephritis/cystitis.
Completed 7 days of Rocephin
BPH/elevated PSA.
Urology follow-up
CODE STATUS: Full code
DVT prophylaxis: SCDs
Diet: diabtic diet.
Disposition: Monitor creatinine
�
Total time spent on today�s encounter was 51 minutes which included time spent in counseling the patient/family regarding diagnosis and treatment plan as listed above, goals of care, and symptom management. Case was discussed with nursing staff,
specialists, and care coordinators/case management. All labs and imaging personally reviewed by me. Remainder the time spent in detailed review of previous records, lab data, imaging, and other medical provider documentation.
Original Note:
Today's Communication/Plan
-
.
Assessment / Plan
Assessment / Plan
Modesto Valenzuela is a 70M w/ PMHx of diet controlled DM and BPH who presented to the emergency department with mild abdominal pain in the setting of anuria for 2 days and found to have florid CLAU, severe hyperkalemia, and significant urinary retention.
The patient was admitted to the intensive care unit in the setting of life-threatening hyperkalemia, anion gap metabolic acidosis, and florid CLAU. He is s/p 4 U pRBC.
On 09/20, labs continued to improve without dialysis, and patient downgraded to telemetry.
1. Acute Kidney Injury 2/2 Obstructive Uropathy
- PMHx of BPH, previously on medication, but stopped taking few years ago
- Labs on admission: BUN 172, creatinine 17, K 8.4, HCO3 6, AGAP 21, WBC 20.9 K
- CT Abd/Pelv (09/18): Severe diffuse urinary bladder wall thickening, perivesical inflammation suggesting severe acute cystitis, moderate to severe bilateral hydroureteronephrosis, perinephric edema suggesting acute bilateral pyelonephritis,
severely enlarged prostate gland
- Creatinine has been steadily improving, although appears to have somewhat plateaued with a creatinine of 4.2 today
- Appreciate Nephrology Recommendations: will still need to consider HD if Cr does not break below 3
- Patient has no insurance, so outpatient HD options are limited
- Continue Kenny; per urology recommendations, long course, will need to be discharged on Kenny
- PSA elevated (see below)
- Repeat BMP in PM
2. Severe Hyperkalemia (resolved)
- K on admission 8.4
- Significantly improved, 5.2 on labs this morning
- Initially on Calcium Gluconate, Bicarb, Insulin drip in ICU now discontinued
- Continue to follow BMPs
- HD recommendations per nephrology
3. Acute Bilateral Pyelonephritis/Acute Severe Cystitis
- Completed 7 day course of Rocephin (09/24)
- Ucx resulted no growth
- Radiographic evidence of cystitis and pyelo may be 2/2 severe hydronephrosis in the setting of obstructive uropathy, but WBC remains elevated; afebrile.
- WBC remains elevated; likely reactive/in the setting of acute blood loss; consider ProCal testing
4. History of BPH/Elevated PSA
- Likely precipitating factor of all of the above.
- No longer on alpha sommer
- Appreciate Urology reccs
- PSA elevated; per urology: malignancy vs. postprocedure vs. distension injury; repeat in 3 weeks.
- Prostate 250g; continue medications but will likely need invasive intervention in future
5. Acute Blood Loss Anemia
- Initial Hb 9, drop to 6 after Kenny drainage with significant hematuria, transfused PRBCs
- Hematuria now appears to be slowly resolving
- Patient is now status post transfusion 6 units PRBCs total during this admission
- Suspect patient likely has some degree of anemia of chronic disease due to his renal function
- Continue to Monitor H/H; transfuse for Hb < 7
6. NIDDM
- Diet Controlled
- HbA1c = 7.5
- AC insulin during admission, will need to consider superintendent container terminal management options in setting of this kidney injury.
7. Asymptomatic Hypocalcemia
- Calcium close to within normal limits when corrected for hypoalbuminemia
- Electrolytes per Nephro
- Consider 25OH and 1,25OH Vit D testing, phosphate levels
8. Constipation (resolved)
- Differential includes obstructive constipation 2/2 enlarged prostate or functional constipation in the setting of NPO/hospitalization
- XR shows moderate fecal burden (09/22)
- Hopefully increased recent mobility and reintroduction of solid foods allow for passage of stool
- PRN bowel regimen in place
CODE: Full
Diet: 2200 diabetic
DVT PPx: SCD
Anticipated Discharge: 24 - 48 hours
Subjective/Interval History
-
Date of Service: September 25, 2025
Patient seen and examined while resting comfortably in bed.
Patient tolerating diet, has had no issues with constipation.
Endorses 3 BMs yesterday.
Otherwise denies any acute complaints including CP, SOB, dizziness, LE edema, back pain.
Improvement in FC drain color, now ofe colored.
Notes that legs feels a little 'jelly' when walking to bathroom, attributed to being in bed for prolonged periods. Only lasts a short period. (Calls nursing for assistance out of caution).
Objective Data
-
Labs:
Laboratory Results
09/25/25
08:16
WBC 19.5 H
Hgb 8.7 L
Hct 28.6 L
Plt Count 314
Sodium 135
Potassium 5.3 H
Chloride 105
Carbon Dioxide 20 L
BUN 86 H
Creatinine 4.1 H*
Glucose 127 H
Calcium 7.3 L
Vital Signs:
Vital Signs
Temp Pulse Resp BP Pulse Ox
98 F 78 18 147/72 97
09/25/25 07:00 09/25/25 07:00 09/25/25 07:00 09/25/25 07:00 09/25/25 07:00
I&O
09/24/25 09/25/25 09/26/25
06:59 06:59 06:59
Intake Total 1770 / 1770 1300 / 1300
Output Total 5250 / 5250 4000 / 4000
Balance -3480 / -3480 -2700 / -2700
Review of Systems
-
History Source: Patient
All other systems: Reviewed and negative
Physical Exam
-
General: Well Developed, Well Nourished, No Apparent Distress and Comfortable
HEENT: Normocephalic, Atraumatic and Moist Mucous Membranes
Respiratory: Clear to Auscultation and Non Labored Respirations; Negative Wheezes, Rales, Rhonchi or Crackles
Cardiac: Regular Rhythm and S1/S2
GI: Soft, Nontender, Nondistended and Normal Bowel Sounds
Musculoskeletal: No Clubbing, No Cyanosis and No Edema
Skin: Warm
Neuro: Awake, Alert and Oriented
Psych: Calm
Data Reviewed
-
Labs: Labs Reviewed by me and Discussed with Patient
[2025-09-25 11:41] LABS: Glucose - Point of Care 161 mg/dl (70-99)
[2025-09-25] MEDS: NOVOLOG FLEXPEN-LOW RESISTANCE 1 UNITS SC (12:24)
--- NOTE | 2025-09-25 13:33 | CM ---
internet and e business project manager reviewed patient's chart and met with patient this am, patient does not have insurance and has been living outside the [place] in [facility], and plans on returning to [place] when stable, assistant case manager was going to review options to purchase
insurance however patient is not staying in the [place], Per [employer] who have evaluated patient he does not qualify for Medicare as he has been living and working outside the [place] and patient's income exceeds the Medicaid requirement.
Plan; To follow with patient progress, patient to return to [place] when stable.
[2025-09-25 16:52] LABS: Glucose - Point of Care 247 mg/dl (70-99)
--- NOTE | 2025-09-25 16:57 | W.PN.NEPH.PH ---
Today's Communication / Plan
-
follow labs
Assessment/Plan
-
Impression
acute kidney injury.
Hyperkalemia 8.
Obstructive uropathy.
Metabolic acidosis.
Plan
Improving renal function cr stable at 4.1
keep Reina catheter, monitor post obst diuresis
monitor off IVF, encourage po intake
mild hyperkalemia-monitor
hopefully can escape HD
follow labs
-
-
Date of Service: September 25, 2025
CC / HPI / ROS
-
Chief Complaint:
CLAU
History of Present Illness:
CLAU/Cr down to 4.1
BUN down to 86
K 5.3 no change
Calcium better at 7.3, lab 3.[address]
Review of Systems:
No chest pain or shortness of breath
polyuric
Labs
-
Labs:
WBC 19.5 10^3/uL (4.8-10.8) H 09/25/25 08:16
RBC 3.09 10^6/uL (4.70-6.10) L 09/25/25 08:16
Hgb 8.7 g/dL (13.0-18.0) L 09/25/25 08:16
Hct 28.6 % (39.0-52.0) L 09/25/25 08:16
Plt Count 314 10^3/uL (130-400) 09/25/25 08:16
Sodium 135 mmol/L (135-145) 09/25/25 08:16
Potassium 5.3 mmol/L (3.5-5.1) H 09/25/25 08:16
Chloride 105 mmol/L (98-107) 09/25/25 08:16
Carbon Dioxide 20 mmol/L (22-30) L 09/25/25 08:16
BUN 86 mg/dl (9-20) H 09/25/25 08:16
Creatinine 4.1 mg/dL (0.7-1.3) H* 09/25/25 08:16
eGFR 14.99 09/25/25 08:16
Glucose 127 mg/dl (70-99) H 09/25/25 08:16
Calcium 7.3 mg/dl (8.4-10.2) L 09/25/25 08:16
Phosphorus 8.1 mg/dl (2.5-4.5) H 09/18/25 20:21
Albumin 3.4 g/dl (3.5-5.0) L 09/25/25 08:16
Physical Exam
-
Vital Signs:
Vital Signs
Temp Pulse Resp BP Pulse Ox
98.2 F 81 18 140/60 99
09/25/25 13:40 09/25/25 13:40 09/25/25 13:40 09/25/25 13:40 09/25/25 13:40
Cardiovascular:: Regular rate and rhythm
Respiratory:: Bilateral: CTA
Lung Excursion:: Normal
Abdomen:: Nontender and Soft
Extremity Edema:: None: Bilateral: (trace)
Reina Catheter: Yes
[2025-09-25] MEDS: NOVOLOG FLEXPEN-LOW RESISTANCE 2 UNITS SC (17:07)
[2025-09-25 20:54] LABS: Glucose - Point of Care 272 mg/dl (70-99)
[2025-09-26 03:11] VITALS: BP 149/73
[2025-09-26 07:45] VITALS: BP 129/64
[2025-09-26] MEDS: NOVOLOG FLEXPEN-LOW RESISTANCE SC (07:53)
[2025-09-26] MEDS: FLOMAX 0.4 MG PO (07:54)
[2025-09-26] MEDS: PROSCAR 5 MG PO (07:54)
[2025-09-26 07:55] LABS: Glucose - Point of Care 136 mg/dl (70-99)
[2025-09-26] MEDS: NOVOLOG FLEXPEN 6 UNITS SC ×3 (07:55→17:27)
--- NOTE | 2025-09-26 09:01 | W.PN.HOSP.TC ---
Addendum entered and electronically signed by Collin Alvarado MD 09/26/25 14:27:
Attending�addendum:
I saw and evaluated the patient. I reviewed the resident�s note and agree with findings and plan as documented in the resident�s note.��patient seen and examined at bedside, denies any chest pain or shortness of breath, no abdominal pain, no nausea,
no vomiting, no diarrhea or constipation.
Physical�exam:
GENERAL : Patient is awake, alert, oriented x3
HEENT: Nonicteric sclerae, PERRLA, EOMI. Oropharynx clear. Moist mucous membranes. Conjunctivae appear well perfused.
CHEST: Chest wall is nontender.
HEART: Regular rate and rhythm without murmurs.
LUNGS: Clear to auscultation bilaterally.
ABDOMEN: Soft, positive bowel sounds, nontender, no organomegaly.
RECTAL: Deferred.
MUSCLES/EXTREMITIES: No abnormal range of motion, no swelling.SKIN: No rash, no excessive bruising, petechiae, or purpura.
NEUROLOGIC: Cranial nerves II-XII intact without motor/sensory deficit.
�
Assessment/plan:
Acute kidney injury secondary to obstructive uropathy.
Creatinine continue to improve.
Continue Kenny.
Follow-up with urology/nephrology recommendations
Severe hyperkalemia.
Improved
Acute bilateral pyelonephritis/cystitis.
Completed 7 days of Rocephin
BPH/elevated PSA.
Urology follow-up
CODE STATUS: Full code
DVT prophylaxis: SCDs
Diet: diabtic diet.
Disposition: Cleared for discharge by nephrology, need to follow-up with PCP and neurology as outpatient
�
Total time spent on today�s encounter was 51 minutes which included time spent in counseling the patient/family regarding diagnosis and treatment plan as listed above, goals of care, and symptom management. Case was discussed with nursing staff,
specialists, and care coordinators/case management. All labs and imaging personally reviewed by me. Remainder the time spent in detailed review of previous records, lab data, imaging, and other medical provider documentation.
Original Note:
Today's Communication/Plan
-
.
Assessment / Plan
Assessment / Plan
Modesto Valenzuela is a 70M w/ PMHx of diet controlled DM and BPH who presented to the emergency department with mild abdominal pain in the setting of anuria for 2 days and found to have florid CLAU, severe hyperkalemia, and significant urinary retention.
The patient was admitted to the intensive care unit in the setting of life-threatening hyperkalemia, anion gap metabolic acidosis, and florid CLAU. He is s/p 4 U pRBC.
On 09/20, labs continued to improve without dialysis, and patient downgraded to telemetry.
1. Acute Kidney Injury 2/2 Obstructive Uropathy
- PMHx of BPH, previously on medication, but stopped taking few years ago
- Labs on admission: BUN 172, creatinine 17, K 8.4, HCO3 6, AGAP 21, WBC 20.9 K
- Cr today 3.2, marked improvement overnight
- CT Abd/Pelv (09/18): Severe diffuse urinary bladder wall thickening, perivesical inflammation suggesting severe acute cystitis, moderate to severe bilateral hydroureteronephrosis, perinephric edema suggesting acute bilateral pyelonephritis,
severely enlarged prostate gland
- Appreciate Nephrology Recommendations: will still need to consider HD if Cr does not break below 3
- Patient has no insurance, so outpatient HD options are limited
- Continue Kenny; per urology recommendations, long course, will need to be discharged on Kenny
- PSA elevated (see below)
- Repeat BMP in PM
2. Severe Hyperkalemia (resolved)
- K on admission 8.4
- Significantly improved, 5.2 on labs this morning
- Initially on Calcium Gluconate, Bicarb, Insulin drip in ICU now discontinued
- Continue to follow BMPs
3. Acute Bilateral Pyelonephritis/Acute Severe Cystitis
- Completed 7 day course of Rocephin (11/9)
- Ucx resulted no growth
- Radiographic evidence of cystitis and pyelo may be 2/2 severe hydronephrosis in the setting of obstructive uropathy, but WBC remains elevated; afebrile.
- WBC remains elevated; likely reactive/in the setting of acute blood loss; improvement this AM.
4. History of BPH/Elevated PSA
- Likely precipitating factor of all of the above.
- No longer on alpha sommer
- Appreciate Urology reccs
- PSA elevated; per urology: malignancy vs. postprocedure vs. distension injury; repeat in 3 weeks.
- Prostate 250g; continue medications but will likely need invasive intervention in future
5. Acute Blood Loss Anemia
- Initial Hb 9, drop to 6 after Kenny drainage with significant hematuria, transfused PRBCs
- Hematuria now appears to be slowly resolving
- Patient is now status post transfusion 6 units PRBCs total during this admission
- Suspect patient likely has some degree of anemia of chronic disease due to his renal function
- Continue to Monitor H/H; transfuse for Hb < 7
6. NIDDM
- Diet Controlled
- HbA1c = 7.5
- AC insulin during admission, will need to consider [facility] management options in setting of this kidney injury.
7. Asymptomatic Hypocalcemia
- Calcium close to within normal limits when corrected for hypoalbuminemia
- Electrolytes per Nephro
- Consider 25OH and 1,25OH Vit D testing, phosphate levels
8. Constipation (resolved)
- Differential includes obstructive constipation 2/2 enlarged prostate or functional constipation in the setting of NPO/hospitalization
- XR shows moderate fecal burden (09/22)
- Hopefully increased recent mobility and reintroduction of solid foods allow for passage of stool
- PRN bowel regimen in place
CODE: Full
Diet: 2199 diabetic
DVT PPx: SCD
Anticipated Discharge: Within 24 hours
Subjective/Interval History
-
Date of Service: September 26, 2025
Patient seen and examined while resting comfortably in bed.
No acute complaints today, states that he is feeling stronger day by day.
Has been working with PT without issue, tolerating diet, and moving bowels.
Notes urine looks much clearer today. Denies pain.
Objective Data
-
Labs:
Laboratory Results
09/26/25
08:45
WBC Pending
Hgb Pending
Hct Pending
Plt Count Pending
Sodium Pending
Potassium Pending
Chloride Pending
Carbon Dioxide Pending
BUN Pending
Creatinine Pending
Glucose Pending
Calcium Pending
Vital Signs:
Vital Signs
Temp Pulse Resp BP Pulse Ox
98.5 F 69 14 129/64 98
09/26/25 07:45 09/26/25 07:45 09/26/25 07:45 09/26/25 07:45 09/26/25 07:45
I&O
09/25/25 09/26/25 09/27/25
06:59 06:59 06:59
Intake Total 1300 / 1300 1330 / 1330
Output Total 4000 / 4000 3200 / 3200
Balance -2700 / -2700 -1870 / -1870
Review of Systems
-
History Source: Patient
All other systems: Reviewed and negative
Physical Exam
-
General: Well Developed, Well Nourished, No Apparent Distress and Comfortable
HEENT: Normocephalic, Atraumatic and Moist Mucous Membranes
Respiratory: Clear to Auscultation and Non Labored Respirations; Negative Wheezes, Rales, Rhonchi or Crackles
Cardiac: Regular Rhythm and S1/S2
GI: Soft
Musculoskeletal: No Clubbing, No Cyanosis and No Edema
Skin: Warm
Neuro: Awake and Alert
Psych: Calm
Data Reviewed
-
Labs: Labs Reviewed by me, Discussed with Physician and Discussed with Patient
[2025-09-26 10:08] LABS: Hematocrit 28.1 % (39.0-52.0); Hemoglobin 8.7 g/dL (13.0-18.0); Mean Corp Hgb Conc. 31.0 g/dL (33.0-37.0); Mean Corpuscular Volume 91.8 fL (80.0-94.0); Nucleated Red Blood Cells % 0 % (-); Platelet Count 352 10^3/uL (130-400); Red Cell Dist. Width 15.0 % (11.5-14.5)
[2025-09-26 11:16] LABS: Blood Urea Nitrogen 82 mg/dl (9-20); Calcium 7.6 mg/dl (8.4-10.2); Carbon Dioxide 21 mmol/L (22-30); Chloride 105 mmol/L (98-107); Estimated Creatinine Clearance 26 ml/min; Glucose 114 mg/dl (70-99); Potassium 5.3 mmol/L (3.5-5.1); Sodium 134 mmol/L (135-145); eGFR 20.18
[2025-09-26 11:37] VITALS: BP 112/65; PULSE 77; O2SAT 98
[2025-09-26 11:48] LABS: Glucose - Point of Care 203 mg/dl (70-99)
[2025-09-26] MEDS: NOVOLOG FLEXPEN-LOW RESISTANCE 2 UNITS SC (12:40)
--- NOTE | 2025-09-26 13:58 | CM ---
Patient was seen by PT/OT, and wrapper caser reviewed patient's chart and met with patient to review discharge planning. Patient reports that he plans on returning to [place] when stable.
Plan; Home at discharge.
[2025-09-26 15:24] VITALS: BP 135/80
--- NOTE | 2025-09-26 16:59 | W.PN.NEPH.PH ---
Today's Communication / Plan
-
see plan
Assessment/Plan
-
Impression
acute kidney injury.
Hyperkalemia 8.
Obstructive uropathy.
Metabolic acidosis.
Plan
Improving renal function cr better at 3.2
keep Reina catheter, monitor post obst diuresis
encourage po intake
no H D needed
follow labs
need to establish PCP, urology and nephro
BMP in 2-3days after d/c
-
-
Date of Service: September 26, 2025
CC / HPI / ROS
-
Chief Complaint:
CLAU
History of Present Illness:
CLAU/Cr down to 3.2
BUN down to 82
K 5.3 no change
Calcium better at 7.3, lab 3.[address]
Review of Systems:
No chest pain or shortness of breath
Labs
-
Labs:
WBC 16.1 10^3/uL (4.8-10.8) H 09/26/25 09:42
RBC 3.06 10^6/uL (4.70-6.10) L 09/26/25 09:42
Hgb 8.7 g/dL (13.0-18.0) L 09/26/25 09:42
Hct 28.1 % (39.0-52.0) L 09/26/25 09:42
Plt Count 352 10^3/uL (130-400) 09/26/25 09:42
Sodium 134 mmol/L (135-145) L 09/26/25 09:42
Potassium 5.3 mmol/L (3.5-5.1) H 09/26/25 09:42
Chloride 105 mmol/L (98-107) 09/26/25 09:42
Carbon Dioxide 21 mmol/L (22-30) L 09/26/25 09:42
BUN 82 mg/dl (9-20) H 09/26/25 09:42
Creatinine 3.2 mg/dL (0.7-1.3) H 09/26/25 09:42
eGFR 20.18 09/26/25 09:42
Glucose 114 mg/dl (70-99) H 09/26/25 09:42
Calcium 7.6 mg/dl (8.4-10.2) L 09/26/25 09:42
Phosphorus 8.1 mg/dl (2.5-4.5) H 09/18/25 20:21
Albumin 3.4 g/dl (3.5-5.0) L 09/25/25 08:16
Physical Exam
-
Vital Signs:
Vital Signs
Temp Pulse Resp BP Pulse Ox
98.7 F 80 15 135/80 100
09/26/25 15:24 09/26/25 15:24 09/26/25 15:24 09/26/25 15:24 09/26/25 15:24
Cardiovascular:: Regular rate and rhythm
Respiratory:: Bilateral: CTA
Lung Excursion:: Normal
Abdomen:: Nontender and Soft
Extremity Edema:: None: Bilateral: (trace)
Reina Catheter: Yes
[2025-09-26 17:08] LABS: Glucose - Point of Care 289 mg/dl (70-99)
[2025-09-26] MEDS: LOKELMA 10 GRAM PO (17:26)
[2025-09-26] MEDS: NOVOLOG FLEXPEN-LOW RESISTANCE 3 UNITS SC (17:27)
[2025-09-26 19:13] VITALS: BP 148/68
[2025-09-26 20:49] LABS: Glucose - Point of Care 273 mg/dl (70-99)
[2025-09-26 23:15] VITALS: BP 141/68
[2025-09-27 03:11] VITALS: BP 127/66
[2025-09-27 07:00] VITALS: BP 128/58
[2025-09-27 07:03] LABS: Glucose - Point of Care 157 mg/dl (70-99)
[2025-09-27 08:04] LABS: Hematocrit 25.0 % (39.0-52.0); Hemoglobin 8.1 g/dL (13.0-18.0); Mean Corp Hgb Conc. 32.4 g/dL (33.0-37.0); Mean Corpuscular Volume 89.3 fL (80.0-94.0); Platelet Count 339 10^3/uL (130-400); Red Cell Dist. Width 14.5 % (11.5-14.5)
[2025-09-27 09:19] LABS: Blood Urea Nitrogen 78 mg/dl (9-20); Calcium 7.3 mg/dl (8.4-10.2); Carbon Dioxide 21 mmol/L (22-30); Chloride 105 mmol/L (98-107); Estimated Creatinine Clearance 24 ml/min; Glucose 123 mg/dl (70-99); Potassium 5.0 mmol/L (3.5-5.1); Sodium 137 mmol/L (135-145); eGFR 18.76
[2025-09-27] MEDS: NOVOLOG FLEXPEN 6 UNITS SC ×2 (09:20→13:00)
[2025-09-27] MEDS: NOVOLOG FLEXPEN-LOW RESISTANCE 1 UNITS SC (09:20)
[2025-09-27] MEDS: FLOMAX 0.4 MG PO (09:21)
[2025-09-27] MEDS: PROSCAR 5 MG PO (09:21)
--- NOTE | 2025-09-27 10:44 | W.PN.HOSP.TC ---
Addendum entered and electronically signed by Collin Alvarado MD 09/27/25 11:47:
Attending�addendum:
I saw and evaluated the patient. I reviewed the resident�s note and agree with findings and plan as documented in the resident�s note.��patient seen and examined at bedside, denies any chest pain or shortness of breath, no abdominal pain, no nausea,
no vomiting, no diarrhea or constipation.
Physical�exam:
GENERAL : Patient is awake, alert, oriented x3
HEENT: Nonicteric sclerae, PERRLA, EOMI. Oropharynx clear. Moist mucous membranes. Conjunctivae appear well perfused.
CHEST: Chest wall is nontender.
HEART: Regular rate and rhythm without murmurs.
LUNGS: Clear to auscultation bilaterally.
ABDOMEN: Soft, positive bowel sounds, nontender, no organomegaly.
RECTAL: Deferred.
MUSCLES/EXTREMITIES: No abnormal range of motion, no swelling.SKIN: No rash, no excessive bruising, petechiae, or purpura.
NEUROLOGIC: Cranial nerves II-XII intact without motor/sensory deficit.
�
Assessment/plan:
Acute kidney injury secondary to obstructive uropathy.
Creatinine continue to improve.
Continue Kenny.
Follow-up with urology/nephrology recommendations
Severe hyperkalemia.
Improved
Acute bilateral pyelonephritis/cystitis.
Completed 7 days of Rocephin
BPH/elevated PSA.
Urology follow-up
CODE STATUS: Full code
DVT prophylaxis: SCDs
Diet: diabtic diet.
Disposition: Cleared for discharge.
�
Total time spent on today�s encounter was 51 minutes which included time spent in counseling the patient/family regarding diagnosis and treatment plan as listed above, goals of care, and symptom management. Case was discussed with nursing staff,
specialists, and care coordinators/case management. All labs and imaging personally reviewed by me. Remainder the time spent in detailed review of previous records, lab data, imaging, and other medical provider documentation.
Original Note:
Today's Communication/Plan
-
Stable for discharge.
Assessment / Plan
Assessment / Plan
Modesto Valenzuela is a 70M w/ PMHx of diet controlled DM and BPH who presented to the ED with mild abdominal pain in the setting of anuria for 2 days and found to have florid CLAU, severe hyperkalemia, and significant urinary retention. The patient was
admitted to the intensive care unit in the setting of life-threatening hyperkalemia, anion gap metabolic acidosis, and florid CLAU. Also with
On 09/20, labs continued to improve without dialysis, and patient downgraded to telemetry.
1. Acute Kidney Injury 2/2 Obstructive Uropathy
- PMHx of BPH, previously on medication, but stopped taking few years ago
- Labs on admission: BUN 172, creatinine 17, K 8.4, HCO3 6, AGAP 21, WBC 20.9 K
- Cr today 3.4
- CT Abd/Pelv (09/18): Severe diffuse urinary bladder wall thickening, perivesical inflammation suggesting severe acute cystitis, moderate to severe bilateral hydroureteronephrosis, perinephric edema suggesting acute bilateral pyelonephritis,
severely enlarged prostate gland
- Appreciate Nephrology Recommendations: stable for discharge from nephro standpoint
- Continue Kenny; per urology recommendations, long course, will need to be discharged on Kenny; outpatient follow up with Dr. Quinones
- PSA elevated (see below)
2. Severe Hyperkalemia (resolved)
- K on admission 8.4
- Significantly improved, 5.2 on labs this morning
- Initially on Calcium Gluconate, Bicarb, Insulin drip in ICU now discontinued
3. Acute Bilateral Pyelonephritis/Acute Severe Cystitis
- Completed 7 day course of Rocephin (09/24)
- Ucx resulted no growth
- Radiographic evidence of cystitis and pyelo may be 2/2 severe hydronephrosis in the setting of obstructive uropathy, but WBC remains elevated; afebrile.
- Improvement in WBC, repeat CBC outpatient
4. History of BPH/Elevated PSA
- Likely precipitating factor of all of the above.
- Appreciate Urology reccs
- PSA elevated; per urology: malignancy vs. postprocedure vs. distension injury; repeat in 3 weeks.
- Prostate 250g; continue medications but will likely need invasive intervention in future
- Continue Proscar, Flomax
- Outpatient follow up for surgical intervention and Kenny management
5. Acute Blood Loss Anemia
- Initial Hb 9, drop to 6 after Kenny drainage with significant hematuria, transfused PRBCs
- Hematuria now appears to be slowly resolving
- Patient is now status post transfusion 6 units PRBCs total during this admission
- Suspect patient likely has some degree of anemia of chronic disease due to his renal function
- Continue to Monitor H/H; transfuse for Hb < 7
6. NIDDM
- Diet Controlled
- HbA1c = 7.5
- AC insulin during admission, will need to consider custodial management options in setting of this kidney injury.
7. Asymptomatic Hypocalcemia
- Calcium close to within normal limits when corrected for hypoalbuminemia
- Electrolytes per Nephro
- Consider 25OH and 1,25OH Vit D testing, phosphate levels
8. Constipation (resolved)
- Differential includes obstructive constipation 2/2 enlarged prostate or functional constipation in the setting of NPO/hospitalization
- XR shows moderate fecal burden (09/22)
- Hopefully increased recent mobility and reintroduction of solid foods allow for passage of stool
- PRN bowel regimen in place
CODE: Full
Diet: 0 diabetic
DVT PPx: SCD
Anticipated Discharge: Today
Subjective/Interval History
-
Date of Service: September 27, 2025
Patient seen and examined while sitting comfortably in chair.
Patient with no acute complaints this morning.
Notes improvement in color of urine.
Questions concerning his diet, and logistics of FC leg bag upon discharge.
Objective Data
-
Labs:
Laboratory Results
09/27/25
07:48
WBC 13.8 H
Hgb 8.1 L
Hct 25.0 L
Plt Count 339
Sodium 137
Potassium 5.0
Chloride 105
Carbon Dioxide 21 L
BUN 78 H
Creatinine 3.4 H
Glucose 123 H
Calcium 7.3 L
Vital Signs:
Vital Signs
Temp Pulse Resp BP Pulse Ox
98.3 F 64 18 128/58 99
09/27/25 07:00 09/27/25 07:00 09/27/25 07:00 09/27/25 07:00 09/27/25 07:00
I&O
09/26/25 09/27/25 09/28/25
06:59 06:59 06:59
Intake Total 1330 / 1330 1440 / 1440
Output Total 3200 / 3200 5625 / 5625
Balance -1870 / -1870 -4185 / -4185
Review of Systems
-
History Source: Patient
All other systems: Reviewed and negative
Physical Exam
-
General: Well Developed, Well Nourished, No Apparent Distress and Comfortable
HEENT: Normocephalic, Atraumatic and Moist Mucous Membranes
Respiratory: Non Labored Respirations
Cardiac: Regular Rhythm
GI: Soft
Musculoskeletal: No Clubbing, No Cyanosis and No Edema
Neuro: Awake, Alert and Oriented
Psych: Calm
Data Reviewed
-
Labs: Labs Reviewed by me and Discussed with Patient
[2025-09-27 11:00] VITALS: BP 125/58
--- NOTE | 2025-09-27 11:55 | W.PN.URO.CBU ---
Today's Communication / Plan
-
home [facility]
Assessment / Plan
-
1. Prostatomegaly -- ~ [address] dimensions
2. Obstructive Uropathy due to #1
3. Hematuria from venous bleeding due to decompression of chronically distended urinary bladder
4. Post-obstructive diuresis -- likely will persist for prolonged period
5. Anemia -- secondary to renal failure
6 ELEVATED PSA -- might be indicative of prostate cancer, but also could be due to prostate inflammation/catheterization
Renal function is steadily improving
Diagnosis
-
Date of Service: September 27, 2025
-
Patient Diagnosis:
Post Op Day:
Patient Diagnosis:
Post Op Day:
Patient Diagnosis:
Post Op Day:
Patient Diagnosis:
1. Prostatomegaly -- ~ [address] dimensions
2. Obstructive Uropathy due to #1
3. Hematuria from venous bleeding due to decompression of chronically distended urinary bladder
4. Post-obstructive diuresis --
5. Anemia
6 ELEVATED PSA -- might be indicative of prostate cancer, but also could be due to prostate inflammation/catheterization
Subjective
-
ready for d/c
Objective
-
Vital Signs
Temp Pulse Resp BP Pulse Ox
98.3 F 64 18 128/58 99
09/27/25 07:00 09/27/25 07:00 09/27/25 07:00 09/27/25 07:00 09/27/25 07:00
Intake and Output
09/26/25 09/27/25 09/28/25
06:59 06:59 06:59
Intake Total 1330 / 1330 1440 / 1440
Output Total 3200 / 3200 5625 / 5625
Balance -1870 / -1870 -4185 / -4185
Intake:
Oral fluids 1330 / 1330 1440 / 1440
Output:
Urine, Reina 3200 / 3200 5625 / 5625
Laboratory Results
09/27/25 07:48
09/27/25 07:48
Review of Systems
-
: Difficulty Voiding
Physical Exam
-
General - well developed, well nourished, no acute distress
Chest - clear bilaterally
Abdomen - soft, non-tender, positive bowel sounds, no CVAT, no incisional pain or distention
Genitalia - normal
Rectal - normal
Skin - warm & dry with no rash
Neuro - AOx3, no motor deficits
Extremities - no clubbing, no cyanosis, no edema
Incision - clean, dry
Dressing - clean, dry, intact
Counseling
-
teach reina and leg bag care
Care Review
Data Reviewed
Discussed with: Hospitalist
[2025-09-27 12:02] LABS: Glucose - Point of Care 432 mg/dl (70-99)
[2025-09-27 12:55] LABS: Glucose 213 mg/dl (70-99)
[2025-09-27] MEDS: NOVOLOG FLEXPEN-LOW RESISTANCE 2 UNITS SC (12:59)
--- NOTE | 2025-09-27 13:32 | CM ---
Chart reviewed and patient states he is for possible discharge today, patient to return to home with Efraín, nursing to teach patient, supplies provided. Patient states he has a walker in home, patient has no insurance. Patient states he will follow
up with physicians that he is required to see after discharge.
Plan; Home when stable.
[2025-09-27 15:12] VITALS: BP 144/66
--- NOTE | 2025-09-28 08:37 | W.DCSUMMARY ---
Addendum entered and electronically signed by Collin Alvarado MD 09/28/25 11:12:
Attending�addendum:
I saw and evaluated the patient. I reviewed the resident�s note and agree with findings and plan as documented in the resident�s note.��patient seen and examined at bedside, denies any chest pain or shortness of breath, no abdominal pain, no nausea,
no vomiting, no diarrhea or constipation.
Physical�exam:
GENERAL : Patient is awake, alert, oriented x3
HEENT: Nonicteric sclerae, PERRLA, EOMI. Oropharynx clear. Moist mucous membranes. Conjunctivae appear well perfused.
CHEST: Chest wall is nontender.
HEART: Regular rate and rhythm without murmurs.
LUNGS: Clear to auscultation bilaterally.
ABDOMEN: Soft, positive bowel sounds, nontender, no organomegaly.
RECTAL: Deferred.
MUSCLES/EXTREMITIES: No abnormal range of motion, no swelling.SKIN: No rash, no excessive bruising, petechiae, or purpura.
NEUROLOGIC: Cranial nerves II-XII intact without motor/sensory deficit.
�
Assessment/plan:
Acute kidney injury secondary to obstructive uropathy.
Creatinine continue to improve.
Continue Kenny.
Follow-up with urology/nephrology recommendations
Severe hyperkalemia.
Improved
Acute bilateral pyelonephritis/cystitis.
Completed 7 days of Rocephin
BPH/elevated PSA.
Urology follow-up
CODE STATUS: Full code
DVT prophylaxis: SCDs
Diet: diabtic diet.
Disposition: Cleared for discharge.
�
Total time spent on today�s encounter was 51 minutes which included time spent in counseling the patient/family regarding diagnosis and treatment plan as listed above, goals of care, and symptom management. Case was discussed with nursing staff,
specialists, and care coordinators/case management. All labs and imaging personally reviewed by me. Remainder the time spent in detailed review of previous records, lab data, imaging, and other medical provider documentation.
Original Note:
Documented by User: Hayden Calderon DO, Resident 09/28/25 09:05
Discharge Summary
Discharge Data
Date of Admission: 09/18/25
Date of Discharge: 09/27/25
Total time spent discharging patient (in min): 55
-
Pending Results: No
Hospital Course
Modesto Valenzuela is a 70 year old male visiting [place] from [place] with a past medical history of benign prostatic hyperplasia without treatment for some years presented to the emergency department on 10/15/2020 complaining of several days of
weakness, decreased oral intake, and anuria for 2 days.
ED COURSE
On presentation, patient had a moderately distended abdomen and was diffusely tender to palpation. He was afebrile and hypertensive. Laboratory studies revealed a leukocytosis of 20.9 K, potassium of 3.4, and anion gap metabolic acidosis (gap of
21) and a severe acute kidney injury with BUN of 172 and creatinine of 17. Urinalysis was concerning for tract infection. Bladder scan showed a significant urinary retention. CT of the abdomen and pelvis revealed severe diffuse urinary bladder
wall thickening and inflammation suggesting severe acute cystitis as well as moderate to severe bilateral hydroureteronephrosis perinephric edema suggesting acute bilateral pyelonephritis and a severely enlarged prostate gland. Kenny catheter
placed which drained 6 L of bloody urine. This improved patient's symptoms. Patient was subsequently admitted to the intensive care unit in the setting of life-threatening hyperkalemia and potential need for emergent dialysis. Patient was
admitted for acute kidney injury secondary to obstructive uropathy in the setting of a severely enlarged prostate, severe hyperkalemia, and acute blood loss anemia.
HOSPITAL COURSE
The patient drained a total of 7.5 L of bloody urine in the first 24 hours. In this context, the patient had acute blood loss anemia and was transfused with packed red blood cells. Over the course of admission, the patient was transfused with a
total of 6 units. With regard to the patient's acute kidney injury, patient was followed by nephrology recommendations for dialysis were made. The patient decided against emergent dialysis as his creatinine was slowly improving. Over the course
of the next few days, the patient's creatinine improved to 3.4 by the time of admission. His urine appeared less and less bloody by the day, and by the day of discharge there was no gross hematuria. With regards to the patient's hypokalemia, the
patient was treated with an additional course of calcium gluconate and insulin. Patient did not experience any symptoms related to his hyperkalemia and this value normalized within a few days.
Patient was also evaluated by neurology while admitted. PSA was markedly elevated at prostate measured to be approximately 2.50,. Patient was started on Proscar and Flomax with consideration of surgical intervention in the future.
DISCHARGE RECOMMENDATIONS
Follow up with the urologist, number provided for Dr. Quinones.
Patient discharged home with Kenny Catheter and leg bags. Outpatient Kenny management per urology.
Patient started on Proscar and Flomax. Surgical Interventions as discussed by urology.
Repeat CBC and CMP ordered for 1 week from discharge in the setting of postrenal acute kidney injury and subsequent electrolyte abnormalities as well as leukocytosis and acute blood loss anemia while admitted.
Patient to repeat PSA in 3 weeks.
Follow a low carbohydrate diet.
Diabetes management per primary care provider back in [place].
Discharge Plan
-
Patient Disposition: Home (Routine Discharge)
Discharge Diagnosis/Procedures: Prostatomegaly causing Obstructive Uropathy -- Renal Failure
Elevated PSA -- possibly indicative of prostate cancer
Condition: Fair
Diet: Diabetic, Carb Controlled
Activity: As tolerated
Bathing Restrictions: No soaking baths.
Blood Work: have PSA repeated in ~ 3 weeks [order electronically entered into [facility] system for 10/09/25 or later]
Others Tests: CBC and CMP in 1 week (script given).
Wound Care: Home Kenny care
Activity Restrictions/Additional Instructions:
Script given for tamsulosin and finasteride, as patient does not have established pharmacy in the area.
Call Dr. Loo's office to make a follow up appointment for Kenny removal and definitive care options.
Referrals:
Forest Quionnes MD [Active, Urology]
Referral Note: call to schedule 30-minute appointment during first week of October: Kenny change and surgery consideration
NONE,* [Family Provider, Internal Medicine]
Prescriptions:
New
tamsulosin 0.4 mg Capsule
0.4 mg PO DAILY Qty: 30 0RF
finasteride 5 mg Tablet
5 mg PO DAILY Qty: 30 0RF
Discharge Orders:
Discharge Patient (As Directed); Ordered 09/27/25
Ordered By: Hayden Calderon
Discharge Date and Time
Discharge Date/Time: 09/27/25 16:27
Print Language: BENGALI

Documented by User: Collin Alvarado MD 09/28/25 11:12
Discharge Summary
Discharge Data
Date of Admission: 09/18/25
Date of Discharge: 09/28/25
Discharge Plan
-
Patient Disposition: Home (Routine Discharge)
Discharge Diagnosis/Procedures: Prostatomegaly causing Obstructive Uropathy -- Renal Failure
Elevated PSA -- possibly indicative of prostate cancer
Condition: Fair
Diet: Diabetic, Carb Controlled
Activity: As tolerated
Bathing Restrictions: No soaking baths.
Blood Work: have PSA repeated in ~ 3 weeks [order electronically entered into [facility] system for 10/09/25 or later]
Others Tests: CBC and CMP in 1 week (script given).
Wound Care: Home Kenny care
Activity Restrictions/Additional Instructions:
Script given for tamsulosin and finasteride, as patient does not have established pharmacy in the area.
Call Dr. Loo's office to make a follow up appointment for Kenny removal and definitive care options.
Referrals:
Forest Quinones MD [Active, Urology]
Referral Note: call to schedule 30-minute appointment during first week of October: Kenny change and surgery consideration
NONE,* [Family Provider, Internal Medicine]
Prescriptions:
New
tamsulosin 0.4 mg Capsule
0.4 mg PO DAILY Qty: 30 0RF
finasteride 5 mg Tablet
5 mg PO DAILY Qty: 30 0RF
Discharge Orders:
Discharge Patient (As Directed); Ordered 09/27/25
Ordered By: Hayden Calderon
Discharge Date and Time
Discharge Date/Time: 09/27/25 16:27
Print Language: BENGALI
== END 2025-09-27 16:27 | disposition home or self-care (01) | DRG 699 ==
LOC: 4 WEST ACU 15:29
PROVIDERS: Internal Medicine; Nurse Practitioner Family; Nurse Practitioner Primary Care; ADMITTING PHYSICIAN Hospitalist; ATTENDING PHYSICIAN General Practice; CONSULT PHYSICIAN Internal Medicine Critical Care Medicine; CONSULT PHYSICIAN Internal Medicine Nephrology; CONSULT PHYSICIAN Nurse Practitioner Acute Care; EMERGENCY PHYSICIAN Emergency Medicine
PROC: 30233N1 Transfusion of Nonautologous Red Blood Cells into Peripheral Vein, Percutaneous Approach (ICD-10-PCS; 2025-09-19)
DX: N13.9 Obstructive and reflux uropathy, unspecified (principal); E87.20 Acidosis, unspecified; N17.9 Acute kidney failure, unspecified; N10 Acute pyelonephritis; E87.5 Hyperkalemia; E11.65 Type 2 diabetes mellitus with hyperglycemia; I45.9 Conduction disorder, unspecified; D64.9 Anemia, unspecified; D75.839 Thrombocytosis, unspecified; E83.51 Hypocalcemia; N40.1 Benign prostatic hyperplasia with lower urinary tract symptoms; N30.01 Acute cystitis with hematuria; Z11.52 Encounter for screening for COVID-19
CPT/HCPCS: 71045; 74018; 74176; 80048; 80053; 81003; 81015; 82040; 82805; 82947; 82962; 83036; 83605; 83735; 84100; 84153; 84154; 85014; 85018; 85025; 85027; 85610; 85730; 86850; 86900; 86901; 86920; 87086; 87502; 87811; 93005; 96374; 96375; 97116; 97163; 97530; 99291; P9016; P9047

== ENCOUNTER 2025-09-29 20:52 | Emergency (ER) | payer SELFPAY ==
[2025-09-29 21:09] VITALS: BP 156/69
[2025-09-29 23:18] VITALS: BMI 30.2
[2025-09-29 23:19] VITALS: BP 148/63
--- NOTE | 2025-09-29 23:58 | ED.GENMED ---
History of Present Illness
General
Chief Complaint: Catheter/Tube Problem
Source: patient
Exam Limitations: none
Time Seen by Provider: 09/29/25 23:38
Nursing documentation reviewed up to this point in time: agreed with
History of Present Illness
History of Present Illness:
70 yr old male presents to the ED for catheter problems. Patient reports that 2 PM he noticed that his catheter was not draining. His urologist recommended he come to the ER to have it possibly flushed. He denies any nausea vomiting fever
chills. He felt a little distended in his abdomen. Prior to my exam nurse BladderScaned patient which showed 1000 cc of urine. Nurse flushed the catheter and since then catheter is draining normally. Pt has no complaints.
Phy Exam
General Physical Exam
General Presentation: no apparent distress
General age: appears stated age
General Skin: warm and dry
General Habitus: elderly
General Mental: alert
General Hydration: appears well hydrated
Gastrointestinal Exam
Gastrointestinal Exam: non tender and soft
Genitourinary Exam Male
Exam Male: other (+ catheter in place draining )
Neurological Exam
Neurological Exam: alert and oriented x3
Musculoskeletal Exam
Musculoskeletal Exam: full ROM
Skin Exam
Skin Exam: normal color and warm/dry
Psychiatric Exam
Psychiatric Exam: normal mood/affect
Course
Vital Signs
Initial and Last Documented VS:
Initial Vital Signs
Temp Pulse Resp BP Pulse Ox
98.4 F 91 20 156/69 98
09/29/25 21:09 09/29/25 21:09 09/29/25 21:09 09/29/25 21:09 09/29/25 21:09
Last Documented Vital Signs
Temp Pulse Resp BP Pulse Ox
98.4 F 91 20 139/63 99
09/29/25 21:09 09/29/25 21:09 09/29/25 21:09 09/30/25 00:00 09/30/25 00:45
MDM/Problems Addressed
Differential Diagnosis Includes:
not limited to: blocked reina uti
MDM/Problems Addressed:
Patient had his catheter flushed prior to my exam and urine is now draining freely. Urine is clear yellow without sediment(we will hold off on sending urinalysis) no fever chills nausea vomiting patient is very stable stable for discharge home with
outpatient urology follow-up
Chronic conditions affecting care:
enLarged prostate
*Pulse Oximetry
SaO2: 99
Oxygen Mode of Delivery: Room air
Patient hypoxic: no
*Critical Care Note
Total Time (30-74mins, 75-104mins- exclusive of procedures): Not Applicable
ED Attending Note
-
Portions of this chart may have been created with voice recognition software.� Occasional wrong word or��sound alike� substitutions may have occurred due to the inherent limitations of voice recognition software.
Discharge Plan
Departure
Patient Disposition: Home (Routine Discharge)
Date of Disposition: 09/30/25
Time of Disposition: 00:44
Patient with high blood pressure during this ER visit?: Yes
Condition: Fair
Covid-19: Not Applicable
Discharge Problem:
Complication, blocked Reina catheter
Instructions: How to Care for Your Reina Catheter, Male
Prescriptions:
No Action
tamsulosin 0.4 mg Capsule
0.4 mg PO DAILY Qty: 30 0RF
finasteride 5 mg Tablet
5 mg PO DAILY Qty: 30 0RF
Referrals:
Ayden Rojo MD [Active, Urology]
NONE,* [Family Provider, Internal Medicine]
Activity Restrictions/Additional Instructions:
Follow-up with your urologist as discussed.
return if any worsening of symptoms.
Interventions
Interventions:
*Risk Screen - Suicide Last Done: 09/29/25 21:09
*General Assessment Last Done: 09/29/25 21:09
*Neglect/Abuse Screening Last Done: 09/29/25 21:09
*ED- Fall Risk Assessment Last Done: 09/29/25 21:09
*ED COVID-19 Vaccine History Last Done: 09/29/25 21:09
*ED Influenza Vaccine History Last Done: 09/29/25 21:09
CN-Yhulda-Neaqfcpqdo Assessment Last Done: 09/29/25 23:18
ED-Male Genitourinary Assessment Last Done: 09/29/25 23:18
Discharge Date and Time
Print Language: MALTESE
[2025-09-30] VITALS: BP 139/63
== END 2025-09-30 00:50 | disposition home or self-care (01) ==
LOC: EMR 20:52
PROVIDERS: EMERGENCY PHYSICIAN Emergency Medicine
DX: T83.091A Other mechanical complication of indwelling urethral catheter, initial encounter (principal); Y73.8 Miscellaneous gastroenterology and urology devices associated with adverse incidents, not elsewhere classified; N40.0 Benign prostatic hyperplasia without lower urinary tract symptoms
CPT/HCPCS: 99282

== ENCOUNTER 2025-09-30 13:21 | Emergency (ER) | payer SELFPAY ==
[2025-09-30 13:35] VITALS: BP 133/74
--- NOTE | 2025-09-30 14:22 | ED.GENMED ---
History of Present Illness
General
Chief Complaint: Catheter/Tube Problem
Source: patient
Exam Limitations: none
Time Seen by Provider: 09/30/25 14:05
History of Present Illness
History of Present Illness:
70yoM with a history of BPH and urinary retention with Kenny catheter in place presenting for a blocked Kenny catheter. Patient was seen in the ED on 09/18/2025 for weakness and was found to have CLAU which was thought to be postobstructive secondary
to urinary retention and Kenny catheter was placed. He was seen in the ED yesterday for a blocked Kenny catheter. The catheter was irrigated by nursing staff and started to drain normally. His catheter stopped draining again last night and he is
here with suprapubic pressure. He is otherwise asymptomatic and denies any hematuria, fevers, flank pain, vomiting.
Phy Exam
General Physical Exam
General Presentation: well appearing and no apparent distress
General Skin: warm and dry
General Habitus: normal
General Mental: alert
ENT Exam
ENT Exam: normocephalic
Pulmonary Exam
Pulmonary Exam: no respiratory distress
Gastrointestinal Exam
Gastrointestinal Exam: soft, non distended and other (+Suprapubic fullness)
Genitourinary Exam Male
Exam Male: other (Kenny catheter in place with small amount of yellow urine )
Neurological Exam
Neurological Exam: alert
[place] Coma Scale
Eye Opening: Spontaneous
Verbal Response: Oriented
Motor Response: Obeys Commands
GCS Total Score: 15
Skin Exam
Skin Exam: normal color and warm/dry
Psychiatric Exam
Psychiatric Exam: normal mood/affect
Course
Vital Signs
Initial and Last Documented VS:
Initial Vital Signs
Temp Pulse Resp BP Pulse Ox
98.1 F 89 18 133/74 98
09/30/25 13:35 09/30/25 13:35 09/30/25 13:35 09/30/25 13:35 09/30/25 13:35
Last Documented Vital Signs
Temp Pulse Resp BP Pulse Ox
98.1 F 82 16 131/74 98
09/30/25 13:35 09/30/25 15:41 09/30/25 15:41 09/30/25 15:41 09/30/25 15:41
MDM/Problems Addressed
Differential Diagnosis Includes:
70yoM here with a blocked Kenny catheter. Seen in the ED yesterday for the same. Suprapubic pressure noted on exam. Bladder scan 1500cc. Nursing staff irrigated catheter which flushed and pulled back easily. No clots or sediment noted. Catheter
immediately started to drain after flushing. Patient asymptomatic on reassessment and requesting to be discharged. Clear yellow urine noted in collection bag. Unclear why catheter keeps obstructing. He states he is having issues mostly when he
switches to a leg bag. Possible that catheter is being kinked exteriorly. He was advised to f/u with urology and return to the ED if this recurs.
*Pulse Oximetry
SaO2: 98
Oxygen Mode of Delivery: Room air
Patient hypoxic: no
*Critical Care Note
Total Time (30-74mins, 75-104mins- exclusive of procedures): Not Applicable
ED Attending Note
-
Portions of this chart may have been created with voice recognition software.� Occasional wrong word or��sound alike� substitutions may have occurred due to the inherent limitations of voice recognition software.
Discharge Plan
Departure
Patient Disposition: Home (Routine Discharge)
Date of Disposition: 09/30/25
Time of Disposition: 15:31
Patient with high blood pressure during this ER visit?: No
Discharge Problem:
Complication, blocked Kenny catheter
Instructions: How to Care for Your Kenny Catheter, Male
Prescriptions:
No Action
tamsulosin 0.4 mg Capsule
0.4 mg PO DAILY Qty: 30 0RF
finasteride 5 mg Tablet
5 mg PO DAILY Qty: 30 0RF
Referrals:
Ayden Rojo MD [Family Provider, Urology]
Activity Restrictions/Additional Instructions:
Please follow-up with your urologist on Thursday. Return to the ER with any issues or if your catheter stops draining.
Interventions
Interventions:
*Risk Screen - Suicide Last Done: 09/30/25 13:38
*General Assessment Last Done: 09/30/25 13:35
*Neglect/Abuse Screening Last Done: 09/30/25 15:24
*ED- Fall Risk Assessment Last Done: 09/30/25 15:24
*ED COVID-19 Vaccine History Last Done: 09/30/25 13:35
*ED Influenza Vaccine History Last Done: 09/30/25 13:35
*Nursing Disposition Last Done: 09/30/25 15:42
XB-Ikjdvy-Yarghrkuwh Assessment Last Done: 09/30/25 15:24
ED-Male Genitourinary Assessment Last Done: 09/30/25 15:24
Discharge Date and Time
Discharge Date/Time: 09/30/25 15:42
Print Language: TUVALUAN
[2025-09-30 15:41] VITALS: BP 131/74
== END 2025-09-30 15:42 | disposition home or self-care (01) ==
LOC: EMR 13:21
PROVIDERS: EMERGENCY PHYSICIAN Emergency Medicine; FAMILY PHYSICIAN Specialist
DX: T83.091A Other mechanical complication of indwelling urethral catheter, initial encounter (principal); Y73.8 Miscellaneous gastroenterology and urology devices associated with adverse incidents, not elsewhere classified; N40.1 Benign prostatic hyperplasia with lower urinary tract symptoms
CPT/HCPCS: 99283

== ENCOUNTER 2025-10-03 16:52 | Emergency (ER) | payer SELFPAY ==
[2025-10-03 16:57] VITALS: BP 167/84
[2025-10-03 20:31] VITALS: BP 162/86
--- NOTE | 2025-10-03 21:18 | ED.GENMED ---
History of Present Illness
General
Chief Complaint: Catheter/Tube Problem
Source: patient
Exam Limitations: none
Time Seen by Provider: 10/03/25 19:57
Nursing documentation reviewed up to this point in time: agreed with
History of Present Illness
History of Present Illness:
Patient is a 70-year-old male with history of BPH and urinary retention with Reina catheter in place presenting with concerns of a blocked Reina catheter. Patient states that when he woke up this morning he noticed that there was no urine drainage
into his catheter bag overnight. He last emptied bag prior to going to sleep last night. Throughout the day, he has not had any urine output. He reports mild discomfort in the suprapubic region. No fever or chills.
This is the third time he has been in the emergency department this past week with Reina catheter problems.
He follows with Dr. Rojo outpatient.
No other concerns today
Review of Systems
Review of Systems
Allergies reviewed?: Yes
All Other Systems: ROS reviewed and negative except as documented in HPI and ROS
Phy Exam
Physical Exam
Physical Exam:
Vitals: Hypertensive, otherwise vital signs stable. Afebrile
General: Patient is very well-appearing, in no distress.
Skin: Warm and dry, no rashes or lesions
Head: Normocephalic, atraumatic
Neck: Normal ROM, no cervical spine tenderness
Cardiac: Regular rate
Pulm: No apparent respiratory distress
Abdomen: Mildly distended. Soft without areas of focal tenderness. No rebound or guarding
Neuro: Grossly intact
Psychiatric: Normal affect.
Course
Orders/Labs/Results
Orders:
Orders
10/03/25 20:03
Bladder Scan- Treatment ONCE
10/03/25 20:15
Reina Placement- Treatment ONCE
Reason for insertion: Acute Retention
Vital Signs
Initial and Last Documented VS:
Initial Vital Signs
Temp Pulse Resp BP Pulse Ox
98 F 94 16 167/84 98
10/03/25 16:57 10/03/25 16:57 10/03/25 16:57 10/03/25 16:57 10/03/25 16:57
Last Documented Vital Signs
Temp Pulse Resp BP Pulse Ox
98 F 82 16 162/86 100
10/03/25 16:57 10/03/25 20:31 10/03/25 20:31 10/03/25 20:31 10/03/25 21:18
MDM/Problems Addressed
Differential Diagnosis Includes:
Not limited to: Blocked Reina catheter, etc.
MDM/Problems Addressed:
70 year-old male with blocked reina catheter. No urine output since last night. Reports mild suprapubic discomfort without any infectious symptoms.
Vitals and physical exam as above.
Bladder scan by RN reveals 2100 cc urine in bladder. Reina catheter was exchanged without difficulty. Clear yellow urine drained. Patients symptoms have resolved.
This is patient�s third visit for clogged reina catheter. Recommended contacting his urologist tomorrow for evaluation in the outpatient setting.
Otherwise, stable for discharge home with return precautions.
Chronic conditions affecting care:
N/A
Acute Exacerbation and/or Progression of Chronic Illness:
N/A
*Pulse Oximetry
SaO2: 100
Oxygen Mode of Delivery: Room air
Patient hypoxic: no
*EKG
Interpreted by ED Provider?: NA
*Machine Set Up Technician Interpretation
Rate: Machine Set Up Technician- N/A
*Critical Care Note
Total Time (30-74mins, 75-104mins- exclusive of procedures): Not Applicable
ED Attending Note
-
Portions of this chart may have been created with voice recognition software.� Occasional wrong word or��sound alike� substitutions may have occurred due to the inherent limitations of voice recognition software.
Discharge Plan
Departure
Patient Disposition: Home (Routine Discharge)
Date of Disposition: 10/03/25
Time of Disposition: 21:05
Patient with high blood pressure during this ER visit?: Yes
Condition: Good
Discharge Problem:
Complication, blocked Reina catheter
Instructions: How to Care for Your Reina Catheter, Male
Prescriptions:
No Action
tamsulosin 0.4 mg Capsule
0.4 mg PO DAILY Qty: 30 0RF
finasteride 5 mg Tablet
5 mg PO DAILY Qty: 30 0RF
Referrals:
Ayden Rojo MD [Family Provider, Urology] - Next open appointment
Activity Restrictions/Additional Instructions:
Please contact your urologist in the morning for follow-up. Return to the emergency department with any fevers, chills, abdominal pain or if your catheter stops draining.
Interventions
Interventions:
*Risk Screen - Suicide Last Done: 10/03/25 16:57
*Neglect/Abuse Screening Last Done: 10/03/25 16:57
*Nursing Disposition Last Done: 10/03/25 21:17
ED-Male Genitourinary Assessment Last Done: 10/03/25 20:31
Discharge Date and Time
Discharge Date/Time: 10/03/25 21:18
Print Language: YORUBA
== END 2025-10-03 21:18 | disposition home or self-care (01) ==
LOC: EMR 16:52
PROVIDERS: EMERGENCY PHYSICIAN Emergency Medicine; FAMILY PHYSICIAN Specialist
DX: T83.091A Other mechanical complication of indwelling urethral catheter, initial encounter (principal); Y73.8 Miscellaneous gastroenterology and urology devices associated with adverse incidents, not elsewhere classified; N40.1 Benign prostatic hyperplasia with lower urinary tract symptoms; R33.8 Other retention of urine; R03.0 Elevated blood-pressure reading, without diagnosis of hypertension
CPT/HCPCS: 99282; 51702

== ENCOUNTER 2025-10-04 11:05 | Emergency (ER) | payer SELFPAY ==
[2025-10-04 11:15] VITALS: BP 151/80
[2025-10-04 12:08] VITALS: BMI 27.1
--- NOTE | 2025-10-04 12:35 | ED.GENMED ---
Addendum entered and electronically signed by Boogie Real PA-C 10/04/25 14:28:
Patient was discharged prior to the blood work returning. His potassium came back at 6.1. Called the patient and advised that he come back here to the hospital
Original Note:
History of Present Illness
General
Chief Complaint: Catheter/Tube Problem
Source: patient
Exam Limitations: none
Time Seen by Provider: 10/04/25 12:19
History of Present Illness
History of Present Illness:
70-year-old male presents with clogged Kenny catheter. He was here yesterday had his catheter exchanged for the same reason and it was functioning on his exit here however overnight it stopped draining. He notes a suprapubic bladder discomfort and
fullness. He denies any visible blood in the urine. No other complaints at this time
Phy Exam
Physical Exam
Physical Exam:
General: Well-appearing male no acute distress
HEENT: Normocephalic atraumatic
Abdomen is soft mild suprapubic distention no significant tenderness
exam: Kenny catheter in place no urine in the bag
Course
Orders/Labs/Results
Orders:
Orders
10/04/25 12:35
Kenny Placement- Treatment ONCE
Reason for insertion: Acute Retention
10/04/25 13:21
Complete Blood Count/With Diff Urgent
Comprehensive Metabolic Panel Urgent
Vital Signs
Initial and Last Documented VS:
Initial Vital Signs
Temp Pulse Resp BP Pulse Ox
98.1 F 77 18 151/80 98
10/04/25 11:15 10/04/25 11:15 10/04/25 11:15 10/04/25 11:15 10/04/25 11:15
Last Documented Vital Signs
Temp Pulse Resp BP Pulse Ox
98.1 F 77 18 151/80 98
10/04/25 11:15 10/04/25 11:15 10/04/25 11:15 10/04/25 11:15 10/04/25 12:37
MDM/Problems Addressed
Differential Diagnosis Includes:
Clogged Kenny catheter. Multiple attempts were made at irrigating catheter. Saline is able to be expressed into the catheter however nothing is able to be withdrawn. Bladder scan at bedside demonstrates over 1200 mL of urine in the bladder.
Decision was made to exchange the Kenny catheter.
*Pulse Oximetry
SaO2: 98
Oxygen Mode of Delivery: Room air
Patient hypoxic: no
*Critical Care Note
Total Time (30-74mins, 75-104mins- exclusive of procedures): Not Applicable
Update Note
Update Note:
Kenny catheter exchanged now with an 18 Khmer catheter. This flowed nicely without any blood. Patient did have a prescription for blood work to be drawn as an outpatient dated today. I did order these tests for CBC and CMP.
ED Attending Note
-
Portions of this chart may have been created with voice recognition software.� Occasional wrong word or��sound alike� substitutions may have occurred due to the inherent limitations of voice recognition software.
Discharge Plan
Departure
Patient Disposition: Home (Routine Discharge)
Date of Disposition: 10/04/25
Time of Disposition: 13:21
Patient with high blood pressure during this ER visit?: No
Discharge Problem:
Complication, blocked Kenny catheter
Instructions: How to Care for Your Kenny Catheter, Male
Prescriptions:
No Action
tamsulosin 0.4 mg Capsule
0.4 mg PO DAILY Qty: 30 0RF
finasteride 5 mg Tablet
5 mg PO DAILY Qty: 30 0RF
Activity Restrictions/Additional Instructions:
Empty your catheter as needed. Follow-up with urology as planned
Interventions
Interventions:
*Risk Screen - Suicide Last Done: 10/04/25 11:15
*General Assessment Last Done: 10/04/25 12:09
*ED- Fall Risk Assessment Last Done: 10/04/25 12:09
*ED COVID-19 Vaccine History Last Done: 10/04/25 12:09
*ED Influenza Vaccine History Last Done: 10/04/25 12:09
RG-Vfmavw-Nvsqxxctva Assessment Last Done: 10/04/25 12:10
ED-Male Genitourinary Assessment Last Done: 10/04/25 12:10
Discharge Date and Time
Print Language: FRISIAN
[2025-10-04 13:41] LABS: Hematocrit 27.5 % (39.0-52.0); Hemoglobin 8.4 g/dL (13.0-18.0); Mean Corp Hgb Conc. 30.5 g/dL (33.0-37.0); Mean Corpuscular Volume 93.5 fL (80.0-94.0); Nucleated Red Blood Cells % 0 % (-); Platelet Count 287 10^3/uL (130-400); Red Cell Dist. Width 14.2 % (11.5-14.5)
[2025-10-04 13:57] LABS: ALT (SGPT) 15 U/L (0-50); AST (SGOT) 16 U/L (17-59); Albumin 3.5 g/dl (3.5-5.0); Alkaline Phosphatase 87 U/L (38-126); Blood Urea Nitrogen 66 mg/dl (9-20); Calcium 8.2 mg/dl (8.4-10.2); Carbon Dioxide 21 mmol/L (22-30); Chloride 106 mmol/L (98-107); Estimated Creatinine Clearance 26 ml/min; Glucose 143 mg/dl (70-99); Potassium 6.1 mmol/L (3.5-5.1); Sodium 133 mmol/L (135-145); Total Protein 7.1 g/dl (6.3-8.2); eGFR 22.71
== END 2025-10-04 13:45 | disposition home or self-care (01) ==
LOC: EMR 11:05
PROVIDERS: Physician Assistant; EMERGENCY PHYSICIAN Emergency Medicine
DX: T83.091A Other mechanical complication of indwelling urethral catheter, initial encounter (principal); Y84.6 Urinary catheterization as the cause of abnormal reaction of the patient, or of later complication, without mention of misadventure at the time of the procedure
CPT/HCPCS: 51702; 99283; 80053; 85025

== ENCOUNTER 2025-10-04 16:06 | Inpatient (IN) | payer OTHER, SELFPAY ==
[2025-10-04] VITALS (9 sets, daily range): BP systolic 142–164; BP diastolic 68–79; BMI 29.7; BMI 27.1
--- NOTE | 2025-10-04 15:19 | ED.GENMED ---
History of Present Illness
General
Chief Complaint: Abnormal Lab Value
Source: patient
Exam Limitations: none
Time Seen by Provider: 10/04/25 14:57
History of Present Illness
History of Present Illness:
See MDM
Past History
Past History
ED Past Medical History: HTN, NIDDM and Other (CKD)
ED Past Surgical History: None
Social History
Tobacco: Non-smoker
Alcohol: None
Phy Exam
Physical Exam
Physical Exam:
See MDM
Course
Orders/Labs/Results
Orders:
Orders
10/04/25 14:57
Electrocardiogram (*1) Urgent
Reason for Study: QTc Monitoring
EKG- Treatment ONCE
10/04/25 15:16
Cardiac Monitoring- Treatment ONCE
Calcium Gluconate 1,000 mg IV NOW STA
Dextrose 50%-Water [Dextrose 50% Syringe] 12.5 grams IV [id number] PRN
Dextrose 50%-Water [Dextrose 50% Syringe] 25 grams IV NOW STA
Furosemide [Lasix] 20 mg IV NOW STA
Insulin Human Regular [Novolin R] 10 units IV NOW STA
10/04/25 15:17
Bedside Glucose PRE IV Insulin- HyperK+ NOW
10/04/25 16:47
Bedside Glucose POST IV Insulin- HyperK+ Q1HX2,Q2HX2
10/04/25 17:47
Potassium Urgent
Comment: draw 2 hours after regular insulin IV administration
10/04/25 19:48
Potassium Urgent
Comment: draw 4 hours after furosemide administered
Vital Signs
Initial and Last Documented VS:
Initial Vital Signs
Temp Pulse Resp BP Pulse Ox
98.5 F 74 18 146/71 96
10/04/25 14:48 10/04/25 14:48 10/04/25 14:48 10/04/25 14:48 10/04/25 14:48
Last Documented Vital Signs
Temp Pulse Resp BP Pulse Ox
98.5 F 74 18 146/71 96
10/04/25 14:48 10/04/25 14:48 10/04/25 14:48 10/04/25 14:48 10/04/25 15:24
MDM/Problems Addressed
Differential Diagnosis Includes:
Note:
CHIEF COMPLAINT(S)
Elevated potassium level (hyperkalemia).
HISTORY OF PRESENT ILLNESS
The patient is a 70-year-old male presenting with an elevated potassium level discovered during routine blood work. His potassium is measured at 6.1, which raises concern due to the risk of cardiac complications. The patient has underlying kidney
issues, which may contribute to the elevated potassium level, although his renal function has reportedly improved recently. He denies taking potassium supplements or medications known to increase potassium levels.
PAST MEDICAL AND SURGICAL HISTORY
Patient has a history of kidney issues.
General: Alert, no acute distress.
Skin: Warm, dry.
Head: Normocephalic, atraumatic
Neck: Appears supple, trachea midline.
Eyes, Ears, Nose, Mouth, and Throat: Moist mucous membranes
Cardiovascular: No signs of cyanosis
Respiratory: Respirations are non-labored.
Abdomen: Non-distended
Musculoskeletal: No deformities
Neurological: No focal neurological deficit observed.
Psychiatric: Cooperative, appropriate mood and affect.
PLAN
Initiate treatment to lower potassium levels. Administer calcium gluconate to stabilize cardiac membranes. Provide additional medications to lower serum potassium. Plan for hospital admission to monitor potassium levels overnight.
DIFFERENTIAL DIAGNOSIS
- Hyperkalemia secondary to renal impairment
- Medication-induced hyperkalemia
- Pseudohyperkalemia
- Addisons disease
- Rhabdomyolysis
- Hemolysis
- Metabolic acidosis
- Dehydration
- Tumor lysis syndrome
- Hypoaldosteronism
SUMMARY OF ENCOUNTER
This 70-year-old male presented with hyperkalemia, discovered via routine lab work. Hyperkalemia was confirmed with a potassium level of 6.1. Due to the high risk of cardiac complications associated with elevated potassium, immediate intervention
was prioritized. The patient has underlying renal impairment which may contribute to this finding. Hospital admission is planned for monitoring and management. Calcium gluconate administration is indicated to protect the cardiac system, followed by
medications to reduce potassium levels effectively.
DISPOSITION
Admission for overnight monitoring and treatment of elevated potassium levels.
EMERGENCY TREATMENTS ADMINISTERED
Patient will receive calcium gluconate to stabilize cardiac myocytes.
MEDICATION RECONCILIATION
Calcium gluconate to be administered for stabilization of heart rhythm. Additional medications to lower potassium levels will be administered.
MEDICAL DECISION MAKING
- Complexity of Data Reviewed: Chronic conditions affecting care [history of kidney issues]. The Differential Diagnosis includes:
- Hyperkalemia secondary to renal impairment
- Medication-induced hyperkalemia
- Pseudohyperkalemia
- Addisons disease
- Rhabdomyolysis
- Hemolysis
- Metabolic acidosis
- Dehydration
- Tumor lysis syndrome
- Hypoaldosteronism
- Data:
Category 1
My independent interpretation of lab findings confirms hyperkalemia with potassium level of 6.1.
- Risk:
Due to the elevated potassium level and underlying renal impairment, there is a significant risk of cardiac complications. Therefore, hospital admission is warranted for ongoing monitoring and treatment.
DIAGNOSIS
1. Hyperkalemia (ICD-10 Code: E87.5)
SUMMARY OF ENCOUNTER
The patient, a 70-year-old male with a history of kidney issues, was seen in the emergency department due to an elevated potassium level of 6.1 discovered during routine bloodwork. Given the risk of cardiac complications associated with
hyperkalemia, immediate intervention was necessary. An electrocardiogram (EKG) was obtained to check for peak T-waves or other signs of hyperkalemia. Treatment involved administering insulin and furosemide to lower potassium levels and calcium
gluconate to stabilize the myocardium. Hospital admission was planned for overnight monitoring and continued management of hyperkalemia.
DISPOSITION
Admit.
ASSESSMENT
Hyperkalemia likely secondary to renal impairment, with a serum potassium level of 6.1. Patient is at risk for cardiac complications due to elevated potassium levels.
EMERGENCY TREATMENTS ADMINISTERED
Insulin, furosemide, calcium gluconate.
PLAN
The patient will be admitted for inpatient management and monitoring of potassium levels. Continued cardiac monitoring and treatment to lower potassium levels will be implemented in the hospital setting.
INDEPENDENT REVIEW OF LABS AND INTERPRETATION OF TESTS
My independent review of the Basic Metabolic Panel (BMP) is hyperkalemia with a potassium level of 6.1.
MEDICATION RECONCILIATION
Administered calcium gluconate for cardiac membrane stabilization, insulin, and furosemide to lower potassium levels.
MEDICAL DECISION MAKING
-Complexity of Data Reviewed: Chronic conditions affecting care [history of kidney issues]. Differential diagnosis includes hyperkalemia secondary to renal impairment, medication-induced hyperkalemia, pseudohyperkalemia, Addisons disease,
rhabdomyolysis, hemolysis, metabolic acidosis, dehydration, tumor lysis syndrome, hypoaldosteronism.
-Data:
Category 1: EKG obtained and reviewed for signs of hyperkalemia.
-Risk: Due to the elevated potassium level and underlying renal impairment, there is a significant risk of cardiac complications, warranting hospital admission for ongoing monitoring and treatment.
DIAGNOSIS
Hyperkalemia (ICD-10 Code: E87.5)
*Pulse Oximetry
SaO2: 96
Oxygen Mode of Delivery: Room air
Patient hypoxic: no
*EKG
Interpreted by ED Provider?: Yes
EKG Intrepretation Date: 10/04/25
Interpretation: normal (Normal sinus rhythm at 71 bpm, normal axis, no ST elevation, mildly peaked T waves)
*Critical Care Note
Total Time (30-74mins, 75-104mins- exclusive of procedures): 33 min
comment:
The high probability of a clinically significant, sudden or life threatening deterioration of the cardiovascular system(s) required my full and direct attention, intervention and personal management. The aggregate critical care time was 33 minutes.
This time is in addition to time spent performing reported procedures but includes the following:
[x] Data Review and interpretation
[x] Patient assessment and monitoring of vital signs
[x] Documentation
[x] Medication orders and management
ED Attending Note
-
Portions of this chart may have been created with voice recognition software.� Occasional wrong word or��sound alike� substitutions may have occurred due to the inherent limitations of voice recognition software.
Discharge Plan
Departure
Patient Disposition: Admit
Date of Disposition: 10/04/25
Time of Disposition: 15:22
Admit to: Telemetry
Presentation/result/management discussed w/ accepting MD/DO: Hospitalist
Discharge Problem:
Hyperkalemia, CKD (chronic kidney disease)
Prescriptions:
No Action
tamsulosin 0.4 mg Capsule
0.4 mg PO DAILY Qty: 30 0RF
finasteride 5 mg Tablet
5 mg PO DAILY Qty: 30 0RF
Referrals:
NONE,* [Family Provider, Internal Medicine]
Interventions
Interventions:
*Risk Screen - Suicide Last Done: 10/04/25 14:48
Discharge Date and Time
Print Language: ITALIAN
[2025-10-04 15:40] LABS: Glucose - Point of Care 114 mg/dl (70-99)
[2025-10-04] MEDS: DEXTROSE 50% SYRINGE 25 GRAMS IV ×2 (15:53→22:20)
[2025-10-04] MEDS: NOVOLIN R 10 UNITS IV (15:53)
[2025-10-04] MEDS: LASIX 20 MG IV (15:53)
[2025-10-04] MEDS: CALCIUM GLUCONATE 1000 MG IV (15:53)
--- NOTE | 2025-10-04 15:55 | HPS.HSE ---
Family Physician
-
Family Physician: * NONE
Chief Complaint
-
urinary catheter obstruction
History of Present Illness
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 He came to the emergency room earlier today for the fourth
time since recent admission for Kenny catheter obstruction. He came to the emergency room yesterday for the same reason and Kenny catheter was exchanged and he was discharged. He came back today for the same reason and catheter was exchanged
again. He had blood work done before being discharged today and potassium was 6.1 so he was called back.
He had suprapubic bladder discomfort and fullness before catheter was replaced earlier. He denies any suprapubic discomfort currently. Denies any blood in the urine but there has been sediment. Denies vomiting or fevers or chills.
Patient was recently admitted for CLAU, hyperkalemia secondary to obstructive uropathy requiring Kenny catheter. He was treated for cystitis/pyelonephritis with 7 days of Rocephin.
He denies smoking or alcohol use.
Medical History
Past Medical History
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
Past Surgical History: Reports None
Social History
Tobacco: Non-smoker
Alcohol: None
Drug: None
Family History
Family History: Not pertinent
Allergies / Home Medications
Allergies reflects when Allergies were last updated in [facility].
Home Medications with original date entered in [facility]
Allergy/Medication List:
Allergies
Allergy/AdvReac Type Severity Reaction Status Date / Time
shellfish derived Allergy Itching Verified 10/04/25 11:15
Home Medications
finasteride 5 mg tablet 5 mg PO DAILY BPH #30 tabs 09/27/25
tamsulosin 0.4 mg capsule 0.4 mg PO DAILY BPH #30 caps 09/27/25
Review of Systems
-
History Source: Patient
A 12 point ROS was completed and negative except as noted: Yes
Constitutional: Reports No Symptoms
EENT: Reports No Symptoms
Respiratory: Reports No Symptoms
Cardiac: Reports No Symptoms
Abdomen/GI: Reports See HPI
: Reports See HPI
Musculoskeletal: Reports No Symptoms
Skin: Reports No Symptoms
Neurological: Reports No Symptoms
Endocrine: Reports No Symptoms
Hematologic/Lymphatic: Reports No Symptoms
Psych: Reports No Symptoms
Physical Exam
Vital Signs
Vital Signs
Temp Pulse Resp BP Pulse Ox
98.5 F 74 18 142/69 100
10/04/25 14:48 10/04/25 14:48 10/04/25 14:48 10/04/25 15:25 10/04/25 15:25
Physical Exam
General: Well Developed, Well Nourished and No Apparent Distress
HEENT: NormoCephalic, Moist mucous membranes and Atraumatic
Respiratory: Clear
Cardiac: S1/S2 and Regular Rhythm; No Murmur or Rub
GI: Soft, Non Tender, Non Distended and Normal Bowel Sounds; No Organomegaly
Rectal: Deferred by Provider
Musculoskeletal: No Clubbing, No Cyanosis and No Edema
Skin: No Rash
Neuro: Nonfocal/grossly intact
Data Reviewed
-
Lab Data: Labs Reviewed by me
Old Records: Reviewed
Impression/Plan
-
IMPRESSION:
PLAN:
# Hyperkalemia secondary to recurrent Kenny catheter obstruction
# Recovering CLAU
-Kenny catheter replaced earlier ER visit today and draining properly without blood
-EKG shows normal sinus rhythm, slightly peaking of T waves
-Creatinine of 2.9 compared to 17 on recent admission
- Patient given calcium gluconate, insulin dextrose and Lasix
- Recheck BMP
- Notified urology
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
- Continue finasteride, tamsulosin
Recent bilateral pyelonephritis/cystitis
- Treated with ceftriaxone
Diet controlled diabetes
Chronic anemia
-Hemoglobin stable 8.4
Full code
DVT prophylaxis�heparin
Regular diet
--- NOTE | 2025-10-04 16:46 | EDCM ---
Reviewed chart and met with pt bedside in ED. Pt has been living in [facility] for past 23 years, is currently staying with 2 friends in [place], 2 story home plus basement, with 2 NABEEL. His bedroom and bathroom are on the first floor.
Independent in ADLs, personal care and ambulation at baseline. Has reina catheter since admission in early September, has returned to ED several times this week for catheter obstruction. Has catheter supplies and RW.
Pt confirms he is not insured, [facility], income is too high for Medicaid.
Pt states he is looking in to insurances but has not obtained insurance yet. His plan is to return to [place] when medically stable.
Does not have PCP
Pharmacy: [facility] [address]
Anticipate discharge home, CM will continue to follow for all discharge planning needs.
[2025-10-04 16:53] LABS: Glucose - Point of Care 108 mg/dl (70-99)
--- NOTE | 2025-10-04 17:43 | W.PN.UPDATE ---
Update Note
Progress Note Update
Patient seen to evaluate reina which has been replaced several times in the past week
catheter was not advanced properly into the bladder and balloon inflated within the prostatic urethra
Balloon taken down and reinflated with 25cc in the bladder lumen
Patient to follow up in the urology office for further evaluation after discharge
[2025-10-04 18:23] LABS: Potassium 5.5 mmol/L (3.5-5.1)
[2025-10-04 19:10] LABS: Glucose - Point of Care 127 mg/dl (70-99)
[2025-10-04] MEDS: HEPARIN 5000 UNITS SC (20:16)
[2025-10-04 21:04] LABS: Potassium 5.6 mmol/L (3.5-5.1)
--- NOTE | 2025-10-04 21:30 | PTCARENOTE ---
Pt's potassium increased from 5.5 to 5.6 at 2130. SECURITY GUARD SUPERVISOR Scammahorn notified and orders placed for IV Novolin R 10 units, Lokelma, and IV Dextrose 25g. Potassium at 0100 was 5 after receiving the medications mentioned above, and at 0300 potassium was
5.2; SECURITY GUARD SUPERVISOR Scammahorn notified of all potassium results. No further orders. Pt's blood sugar monitored per IV insulin admin protocol.
--- NOTE | 2025-10-04 21:30 | PTCARENOTE ---
Pt's potassium increased from 5.5 to 5.6 at 2130. JERRELL Kaplan notified and orders placed for IV Novolin R 10 units, Lokelma, and IV Dextrose 25g and provided to pt. Potassium rechecked at 0300 was 5, and rechecked at 0500 and resulted as 5.2.
JERRELL Kaplan notified of all potassium results; no further orders. Pt's blood glucose monitored per protocol.
[2025-10-04] MEDS: LOKELMA 10 GRAM PO (22:15)
[2025-10-04] MEDS: NOVOLIN R 0.1 UNITS IV (22:19)
[2025-10-04 22:20] LABS: Glucose - Point of Care 156 mg/dl (70-99)
[2025-10-04 23:37] LABS: Glucose - Point of Care 131 mg/dl (70-99)
[2025-10-05] VITALS (7 sets, daily range): BP systolic 125–168; BP diastolic 60–71
[2025-10-05 00:55] LABS: Glucose - Point of Care 116 mg/dl (70-99)
[2025-10-05 01:36] LABS: Potassium 5.0 mmol/L (3.5-5.1)
[2025-10-05 03:49] LABS: Glucose - Point of Care 115 mg/dl (70-99)
[2025-10-05 04:11] LABS: Hematocrit 26.1 % (39.0-52.0); Hemoglobin 8.3 g/dL (13.0-18.0); Mean Corp Hgb Conc. 31.8 g/dL (33.0-37.0); Mean Corpuscular Volume 91.6 fL (80.0-94.0); Nucleated Red Blood Cells % 0 % (-); Platelet Count 301 10^3/uL (130-400); Red Cell Dist. Width 14.1 % (11.5-14.5)
[2025-10-05 04:39] LABS: ALT (SGPT) 14 U/L (0-50); AST (SGOT) 14 U/L (17-59); Albumin 3.3 g/dl (3.5-5.0); Alkaline Phosphatase 87 U/L (38-126); Blood Urea Nitrogen 62 mg/dl (9-20); Calcium 8.3 mg/dl (8.4-10.2); Carbon Dioxide 21 mmol/L (22-30); Chloride 107 mmol/L (98-107); Estimated Creatinine Clearance 26 ml/min; Glucose 100 mg/dl (70-99); Potassium 5.2 mmol/L (3.5-5.1); Sodium 136 mmol/L (135-145); Total Protein 6.6 g/dl (6.3-8.2); eGFR 22.71
[2025-10-05 05:32] LABS: Glucose - Point of Care 116 mg/dl (70-99)
[2025-10-05] MEDS: FLOMAX 0.4 MG PO (08:32)
[2025-10-05] MEDS: PROSCAR 5 MG PO (08:32)
[2025-10-05] MEDS: HEPARIN SC ×3 (08:32→20:31)
[2025-10-05] MEDS: LOKELMA 10 GRAM PO ×3 (08:37→17:40)
[2025-10-05] MEDS: SODIUM BICARBONATE 650 MG PO ×3 (08:37→22:20)
--- NOTE | 2025-10-05 11:04 | W.PN.HOSP.TC ---
Today's Communication/Plan
-
Lokelma/sodium bicarbonate
Repeat potassium
Patient knows establish care and repeat blood work as outpatient
Repeat BMP later today
Assessment / Plan
Assessment / Plan
# Hyperkalemia secondary to recurrent Reina catheter obstruction
# Elevated creatinine likely CKD 3b vs 4?
- Reina catheter replaced earlier ER and was adjusted later by urology
- EKG shows normal sinus rhythm, slightly peaking of T waves
- Creatinine of 2.9 compared to 17 on recent admission. Creatinine continues to improve compared to previous admission however remains elevated. Likely CKD at this stage? Unclear will need close follow-up with nephrology.
- Patient given calcium gluconate, insulin dextrose and Lasix on admisison
- stated lokelma/sodium bicarb
- Recheck BMP
- Patient informed to establish care with nephrology and primary doctor. Family medicine clinic info given
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
- Continue finasteride, tamsulosin
- Patient knows to call and make appointment with Dr. Rojo
Recent bilateral pyelonephritis/cystitis
- Treated with ceftriaxone
Diet controlled diabetes
Chronic anemia
-Hemoglobin stable 8.4
Full code
DVT prophylaxis�heparin
Regular diet
Anticipated Discharge: Today
Subjective/Interval History
-
Date of Service: October 05, 2025
reina draining well
pt without any suprapubic complaints
states recently moved to the area
Objective Data
-
Labs:
Laboratory Results
10/05/25 10/05/25 10/05/25
00:58 03:42 03:42
WBC 8.2
Hgb 8.3 L
Hct 26.1 L
Plt Count 301
Sodium 136
Potassium 5.0 Cancelled 5.2 H
Chloride 107
Carbon Dioxide 21 L
BUN 62 H
Creatinine 2.9 H
Glucose 100 H
Calcium 8.3 L
Total Bilirubin 0.3
AST 14 L
ALT 14
Alkaline Phosphatase 87
10/05/25
12:00
WBC
Hgb
Hct
Plt Count
Sodium Pending
Potassium Pending
Chloride Pending
Carbon Dioxide Pending
BUN Pending
Creatinine Pending
Glucose Pending
Calcium Pending
Total Bilirubin
AST
ALT
Alkaline Phosphatase
Vital Signs:
Vital Signs
Temp Pulse Resp BP Pulse Ox
98.2 F 69 16 138/71 100
10/05/25 07:00 10/05/25 07:00 10/05/25 07:00 10/05/25 07:00 10/05/25 07:00
I&O
10/04/25 10/05/25 10/06/25
06:59 06:59 06:59
Intake Total 120 / 120
Output Total 2350 / 2350
Balance -2230 / -2230
Physical Exam
-
General: Well Developed, Well Nourished, No Apparent Distress and Comfortable
HEENT: Normocephalic, Atraumatic and Moist Mucous Membranes
Respiratory: Non Labored Respirations
Cardiac: Regular Rhythm
GI: Soft
Genito-urinary: Reina (urine noted)
Musculoskeletal: No Clubbing, No Cyanosis and No Edema
Neuro: Awake, Alert and Oriented
Psych: Calm
--- NOTE | 2025-10-05 12:14 | CM ---
CM reviewed chart, patient seen in chair.
CM provided patient with Residency Clinic information to establish PCP.
Patient denies d.c needs from CM at this time, confirms transport home.
CM will continue to follow.
Plan; home with information for Residency Clinic
[2025-10-05 12:55] LABS: Blood Urea Nitrogen 66 mg/dl (9-20); Calcium 8.4 mg/dl (8.4-10.2); Carbon Dioxide 22 mmol/L (22-30); Chloride 103 mmol/L (98-107); Estimated Creatinine Clearance 26 ml/min; Glucose 197 mg/dl (70-99); Potassium 5.3 mmol/L (3.5-5.1); Sodium 131 mmol/L (135-145); eGFR 21.80
[2025-10-05 17:34] LABS: Potassium 5.2 mmol/L (3.5-5.1)
[2025-10-06 03:44] VITALS: BP 155/74
[2025-10-06] MEDS: LOKELMA 10 GRAM PO (06:22)
[2025-10-06 07:16] VITALS: BP 141/67
[2025-10-06] MEDS: FLOMAX 0.4 MG PO (07:46)
[2025-10-06] MEDS: HEPARIN SC ×2 (07:46→07:58)
[2025-10-06] MEDS: PROSCAR 5 MG PO (07:46)
[2025-10-06] MEDS: SODIUM BICARBONATE 650 MG PO (07:53)
[2025-10-06 09:47] LABS: Blood Urea Nitrogen 64 mg/dl (9-20); Calcium 8.2 mg/dl (8.4-10.2); Carbon Dioxide 23 mmol/L (22-30); Chloride 104 mmol/L (98-107); Estimated Creatinine Clearance 27 ml/min; Glucose 130 mg/dl (70-99); Potassium 4.5 mmol/L (3.5-5.1); Sodium 136 mmol/L (135-145); eGFR 23.68
--- NOTE | 2025-10-06 10:41 | W.PN.HOSP.TC ---
Today's Communication/Plan
-
dc home
cont reina
Assessment / Plan
Assessment / Plan
# Hyperkalemia secondary to recurrent Reina catheter obstruction
# Elevated creatinine likely CKD 3b vs 4?
- Reina catheter replaced earlier ER and was adjusted later by urology
- EKG shows normal sinus rhythm, slightly peaking of T waves
- Creatinine of 2.9 compared to 17 on recent admission. Creatinine continues to improve compared to previous admission however remains elevated. Likely CKD at this stage? Unclear will need close follow-up with nephrology.
- Patient given calcium gluconate, insulin dextrose and Lasix on admisison
- stated lokelma/sodium bicarb-K downtrended to 4.5
- Recheck BMP
- Patient informed to establish care with nephrology and primary doctor. Family medicine clinic info given
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
- Continue finasteride, tamsulosin
- Patient knows to call and make appointment with Dr. Rojo
Recent bilateral pyelonephritis/cystitis
- Treated with ceftriaxone
Diet controlled diabetes
Chronic anemia
-Hemoglobin stable 8.4
Full code
DVT prophylaxis�heparin
Regular diet
More than 30 minutes spent in discharge including
Final examination of the patient
Summarizing hospital stay
Instructions for continuing care to all relevant caregivers
Preparation of discharge records, prescriptions, and referral forms
Total time spent (in minutes): 53
Anticipated Discharge: Today
Subjective/Interval History
-
Date of Service: October 06, 2025
No overnight events
Reina remains with good urinary output
Patient with no complaints. States feeling better.
Objective Data
-
Labs:
Laboratory Results
10/06/25
08:50
Sodium 136
Potassium 4.5
Chloride 104
Carbon Dioxide 23
BUN 64 H
Creatinine 2.8 H
Glucose 130 H
Calcium 8.2 L
Vital Signs:
Vital Signs
Temp Pulse Resp BP Pulse Ox
98.3 F 68 16 141/67 98
10/06/25 07:16 10/06/25 07:16 10/06/25 07:16 10/06/25 07:16 10/06/25 07:16
I&O
10/05/25 10/06/25 10/07/25
06:59 06:59 06:59
Intake Total 120 / 120 1740 / 1740
Output Total 2350 / 2350 1625 / 1625
Balance -2230 / -2230 115 / 115
Physical Exam
-
General: Well Developed, Well Nourished, No Apparent Distress, Comfortable and Conversant
HEENT: Normocephalic, Atraumatic, Moist Mucous Membranes, Nose Appears Normal and Ears Appear Normal
Respiratory: Non Labored Respirations
GI: Nondistended
Genito-urinary: Reina (urine noted)
Musculoskeletal: No Clubbing, No Cyanosis and No Edema
Neuro: Awake, Alert, Oriented, AO x 3, No Motor Deficits and Nonfocal/Grossly Intact
Psych: Calm
--- NOTE | 2025-10-06 10:43 | W.DCSUMMARY ---
Discharge Summary
Discharge Data
Date of Admission: 10/04/25
Date of Discharge: 10/06/25
-
Pending Results: No
Hospital Course
70-year-old male past medical history of obstructive uropathy, BPH, chronic anemia who presented to the ER with Reina catheter malfunction. Blood work was checked and was found to have hyperkalemia. Patient was eval by urology and Reina catheter
was properly placed. Patient was having good urinary output. Patient with hyperkalemia and received temporizing measures. Patient was started on Lokelma and bicarbonate. Patient potassium slowly downtrended. Patient was recommended follow-up
with primary care doctor, urologist and nursing home director.
Discharge Plan
-
Patient Disposition: Home (Routine Discharge)
Discharge Diagnosis/Procedures: Hyperkalemia
Urinary retention due to malfunctioned reina catheter s/p resolution
Condition: Fair
Diet: Other diet
Additional Diets: potassium 2g restricted diet.
Activity: As tolerated
Blood Work: BMP in 3-5 days via primary doctor.
Instructions: Hyperkalemia (DC), How to Care for Your Reina Catheter, Male, Low-potassium diet
Referrals:
[facility] [Other, Family Practice] - in less than 1 week
Fredo Ireland MD [Active, Nephrology] - in two to three weeks
NONE,* [Family Provider, Internal Medicine]
Prescriptions:
Continued
tamsulosin 0.4 mg Capsule
0.4 mg PO DAILY Qty: 30 0RF
finasteride 5 mg Tablet
5 mg PO DAILY Qty: 30 0RF
Discharge Orders:
Discharge Patient (As Directed); Ordered 10/06/25
Ordered By: Oneil Díaz
Discharge Date and Time
Print Language: CYMRO
[2025-10-06 11:37] VITALS: BP 119/61
--- NOTE | 2025-10-06 11:41 | CM ---
CM reviewed chart, patient for d.c today.
Patient has transportation home, no needs from CM.
CM will continue to follow.
Plan; home no needs.
--- NOTE | 2025-10-06 12:56 | PTCARENOTE ---
patient was moving around in room preparing for discharge, patient accidentally tugged his Kenny and bright red blood started to fill in Kenny bag. nurse assessed Kenny and penis, no blood surrounding the urethra. Kenny remains in place. Patient
denies any pain or pressure. MD Riggs notified. will monitor Kenny output for next hour.
--- NOTE | 2025-10-06 14:14 | PTCARENOTE ---
patient's urine has cleared up, minimal blood presented in reina bag. Patient denies any pain. MD Riggs notified. Patient ok to go.
== END 2025-10-06 15:44 | disposition home or self-care (01) | DRG 699 ==
LOC: 4 WEST ACU 16:06
PROVIDERS: Nurse Practitioner Family; ADMITTING PHYSICIAN Hospitalist; ATTENDING PHYSICIAN Hospitalist; EMERGENCY PHYSICIAN Student in an Organized Health Care Education/Training Program
DX: T83.091A Other mechanical complication of indwelling urethral catheter, initial encounter (principal); N13.8 Other obstructive and reflux uropathy; E87.5 Hyperkalemia; R33.8 Other retention of urine; N40.1 Benign prostatic hyperplasia with lower urinary tract symptoms; E11.22 Type 2 diabetes mellitus with diabetic chronic kidney disease; I12.9 Hypertensive chronic kidney disease with stage 1 through stage 4 chronic kidney disease, or unspecified chronic kidney disease; N18.9 Chronic kidney disease, unspecified; D63.1 Anemia in chronic kidney disease; Y73.8 Miscellaneous gastroenterology and urology devices associated with adverse incidents, not elsewhere classified
CPT/HCPCS: 80048; 80053; 82962; 84132; 85025; 93005; 99291

== ENCOUNTER 2025-10-07 09:34 | Emergency (ER) | payer OTHER, SELFPAY ==
[2025-10-07 09:37] VITALS: BP 171/74
--- NOTE | 2025-10-07 10:09 | ED.GENMED ---
History of Present Illness
General
Chief Complaint: Catheter/Tube Problem
Source: patient
Exam Limitations: none
Time Seen by Provider: 10/07/25 09:54
Nursing documentation reviewed up to this point in time: agreed with
History of Present Illness
History of Present Illness:
70 yo male w h/o BPH, acute urine retention
09/18-09/27 admitted with acute urine retention w CLAU Creat 17, DE LA TORRE, hyperkalemia K+ 8.4, Prostatomegaly, anemia d/t renal failure. DC'd w Kenny catheter
Pt returned on 09/29 (had 1000 ml urine retention, catheter flushed and drained well)
09/30 (had 1500 ml retention, Kenny irrigated and drained well)
10/02 (2100 retained, Kenny changed and drained well.
10/04 called back d/t K+ 6.1 Catheter not draining, (1200 ml urine in bladder, Kenny changed and drained well): Admitted for hyperkalemia, DC'd yesterday (10/06)
He returned today because after changing from his leg bag to the larger bag last night around 10 PM has noted little drainage from the catheter. He denies abdominal pain or feeling bladder is full.
Denies fever/chills.
Past History
Past History
ED Past Medical History: HTN, NIDDM and Other (CKD)
ED Past Surgical History: None
Social History
Tobacco: Non-smoker
Alcohol: None
Review of Systems
Review of Systems
Allergies reviewed?: Yes
All Other Systems: ROS reviewed and negative except as documented in HPI and ROS
Constitutional: Denies fever or chills
Respiratory: Denies trouble breathing
Cardiac: Denies chest pain
ABD/GI: Denies abdominal pain, nausea or vomiting
: Reports other (Kenny catheter hasn't drained since last night after changing from leg bag)
Phy Exam
Physical Exam
Physical Exam:
GENERAL: No acute distress. A&Ox3.
CONSTITUTIONAL: Afebrile.
EYES: clear, conjunctivae normal
ENMT: moist mucus membranes, Pharynx nl
RESPIRATORY: Regular respirations, nonlabored, lungs clear.
CARDIOVASCULAR: Regular rate and rhythm, no murmurs, no rubs.
GI: Soft, nontender, normal BS.
: Kenny intact, 100 ml of clear pale yellow urine in bag
MUSCULOSKELETAL: Moves with ease. Well perfused.
SKIN: Warm, dry, normal
PSYCH: Normal mood and affect. Well kept, interactive and appropriate
NEUROLOGIC: Awake, alert and oriented. No focal neurological deficits
Course
Orders/Labs/Results
Orders:
Orders
10/07/25 10:09
Bladder Scan- Treatment ONCE
10/07/25 10:56
Complete Blood Count/With Diff Urgent
Comprehensive Metabolic Panel Urgent
Urinalysis Reflex To Culture Urgent
Date Specimen was Collected: 10/07/25
Time Specimen was Collected: 10:55
Urine Microscopic Reflex Cult Urgent
Urine Culture Urgent
ANITA Source: U
Specimen Description:
Date Specimen was Collected: 10/07/25
Time Specimen was Collected: 10:55
10/07/25 12:20
Sulfamethox./Trimethoprim Ds [Bactrim Ds 800 mg/160 mg] 1 tablet PO NOW STA
Abnormal Lab Results
10/07/25
10:56
RBC 2.86 L 10^6/uL
(4.70-6.10)
Hgb 8.0 L g/dL
(13.0-18.0)
Hct 24.0 L %
(39.0-52.0)
Absolute Lymphs (auto) 1.0 L 10^3/uL
(1.2-3.4)
Immature Gran % 0.6 H %
(0-0.5)
Lymphocytes % 14.1 L %
(20.5-51.1)
Sodium 133 L mmol/L
(135-145)
Carbon Dioxide 20 L mmol/L
(22-30)
BUN 65 H mg/dl
(9-20)
Creatinine 2.8 H mg/dL
(0.7-1.3)
Glucose 232 H mg/dl
(70-99)
Calcium 7.9 L mg/dl
(8.4-10.2)
AST 14 L U/L
(17-59)
Albumin 3.4 L g/dl
(3.5-5.0)
Ur Occult Blood Reflex 4+ A
(Negative)
Leukocyte Esterase Rfl 3+ A
(Negative)
Urine RBC >100 A /HPF
(0-2)
Urine WBC (Reflex) >100 A /HPF
(0-5)
Urine Bacteria (Reflex) Many A
(Negative)
Urine Yeast Few A
(Negative)
Urine Glucose 1+ A
(Negative)
Urine Albumin (Reflex) 4+ A
(Neg - Trace)
10/07/25 10:56
10/07/25 10:56
Vital Signs
Initial and Last Documented VS:
Initial Vital Signs
Temp Pulse Resp BP Pulse Ox
98.2 F 82 16 171/74 98
10/07/25 09:37 10/07/25 09:37 10/07/25 09:37 10/07/25 09:37 10/07/25 09:37
Last Documented Vital Signs
Temp Pulse Resp BP Pulse Ox
98.2 F 82 16 171/74 98
10/07/25 09:37 10/07/25 09:37 10/07/25 09:37 10/07/25 09:37 10/07/25 10:14
MDM/Problems Addressed
MDM/Problems Addressed:
70 yo male w h/o BPH, acute urine retention
09/18-09/27 admitted with acute urine retention w CLAU Creat 17, DE LA TORRE, hyperkalemia K+ 8.4, Prostatomegaly, anemia d/t renal failure. DC'd w Kenny catheter
Pt returned on 09/29 (had 1000 ml urine retention, catheter flushed and drained well)
09/30 (had 1500 ml retention, Kenny irrigated and drained well)
10/02 (2100 retained, Kenny changed and drained well.
10/04 called back d/t K+ 6.1 Catheter not draining, (1200 ml urine in bladder, Kenny changed and drained well): Admitted for hyperkalemia, DC'd yesterday (10/06)
He returned today because after changing from his leg bag to the larger bag last night around 10 PM has noted little drainage from the catheter. He denies abdominal pain or feeling bladder is full.
Denies fever/chills.
Afebrile, NAD
10:45 a.m.
Bladder scan: 1200 ml
I removed 25 ml of water from Kenny balloon, advance the catheter a bit, still no drainage. Irrigated catheter and good drainage returned: 1800 ml. The last 100 ml was cloudy with sediment and sent for U/A.
11:45 a.m.
CBC consistent with his chronic anemia
CMP: consistent with his recent CLAU, stable, potassium normalized.
U/A: This 3+ leukocytes, greater than 100 RBCs, greater than 100 WBCs, many bacteria, few yeast.
12:30 p.m.
[address] Urologist Dr. Quintero who requests home irrigation BID, Bactrim or Augmenting or quinolone. Will use Bactrim d/t renal function. And call office Thursday for appt.
Pt instructed on how to irrigate catheter and given supplies to do so. He states he is comfortable with plan
Pt ambulated out with normal gait at discharge
*Pulse Oximetry
SaO2: 98
Oxygen Mode of Delivery: Room air
Patient hypoxic: not evaluated
*Critical Care Note
Total Time (30-74mins, 75-104mins- exclusive of procedures): Not Applicable
ED Attending Note
-
Portions of this chart may have been created with voice recognition software.� Occasional wrong word or��sound alike� substitutions may have occurred due to the inherent limitations of voice recognition software.
Discharge Plan
Departure
Patient Disposition: Home (Routine Discharge)
Date of Disposition: 10/07/25
Time of Disposition: 12:29
Patient with high blood pressure during this ER visit?: No
Condition: Good
Discharge Problem:
Obstructive and reflux uropathy, unspecified
Instructions: How to Care for Your Kenny Catheter, Male
Prescriptions:
New
sulfamethoxazole-trimethoprim [Bactrim DS] 800-160 mg tablet
1 tab PO BID Qty: 14 0RF
No Action
tamsulosin 0.4 mg Capsule
0.4 mg PO DAILY Qty: 30 0RF
finasteride 5 mg Tablet
5 mg PO DAILY Qty: 30 0RF
Referrals:
Ayden Rojo MD [Active, Urology] - Call in 1-3 days for appt
UNKNOWN - PT DOES,NOT KNOW [Family Provider]
Activity Restrictions/Additional Instructions:
As we discussed, irrigate your catheter twice a day with 50-60 ml of the sterile saline provided. Wash hands well before doing this.
Call Dr. Rojo's office Thursday morning to make appointment.
Return here over the weekend if you have any further problems or concerns.
I sent a prescription to your pharmacy for the antibiotic Bactrim which the Urologist recommended.
Interventions
Interventions:
*Risk Screen - Suicide Last Done: 10/07/25 09:37
*Neglect/Abuse Screening Last Done: 10/07/25 09:37
*Nursing Disposition Last Done: 10/07/25 13:55
RH-Lwvwto-Zvbcpivdxj Assessment Last Done: 10/07/25 10:18
ED-Male Genitourinary Assessment Last Done: 10/07/25 10:18
Discharge Date and Time
Discharge Date/Time: 10/07/25 13:56
Print Language: BHUTANESE
[2025-10-07 11:11] LABS: Hematocrit 24.0 % (39.0-52.0); Hemoglobin 8.0 g/dL (13.0-18.0); Mean Corp Hgb Conc. 33.3 g/dL (33.0-37.0); Mean Corpuscular Volume 83.9 fL (80.0-94.0); Nucleated Red Blood Cells % 0 % (-); Platelet Count 254 10^3/uL (130-400); Red Cell Dist. Width 13.6 % (11.5-14.5)
[2025-10-07 11:13] LABS: Urine Character Cloudy (Clear)
[2025-10-07 11:25] LABS: ALT (SGPT) 13 U/L (0-50); AST (SGOT) 14 U/L (17-59); Albumin 3.4 g/dl (3.5-5.0); Alkaline Phosphatase 108 U/L (38-126); Blood Urea Nitrogen 65 mg/dl (9-20); Calcium 7.9 mg/dl (8.4-10.2); Carbon Dioxide 20 mmol/L (22-30); Chloride 104 mmol/L (98-107); Glucose 232 mg/dl (70-99); Potassium 4.1 mmol/L (3.5-5.1); Sodium 133 mmol/L (135-145); Total Protein 6.8 g/dl (6.3-8.2); eGFR 23.68
[2025-10-07 11:31] LABS: Urine Red Blood Cell >100 /HPF (0-2); Urine Squamous Cell 0-2 /LPF (Few); Urine White Cell >100 /HPF (0-5)
[2025-10-07] MEDS: BACTRIM DS 800 MG/160 MG 1 TABLET PO (12:44)
== END 2025-10-07 13:56 | disposition home or self-care (01) ==
LOC: EMR 09:34
PROVIDERS: Registered Nurse; EMERGENCY PHYSICIAN Emergency Medicine
DX: N13.8 Other obstructive and reflux uropathy (principal); N40.1 Benign prostatic hyperplasia with lower urinary tract symptoms; R33.8 Other retention of urine; Z46.6 Encounter for fitting and adjustment of urinary device; D63.1 Anemia in chronic kidney disease; E11.22 Type 2 diabetes mellitus with diabetic chronic kidney disease; I12.9 Hypertensive chronic kidney disease with stage 1 through stage 4 chronic kidney disease, or unspecified chronic kidney disease; N18.9 Chronic kidney disease, unspecified; E87.5 Hyperkalemia
CPT/HCPCS: 99283; 80053; 81003; 81015; 85025; 87086; 87147

== ENCOUNTER → 2025-10-19 13:01 | Outpatient (REF) | payer OTHER, SELFPAY ==
[2025-10-19 16:03] LABS: ALT (SGPT) 12 U/L (0-50); AST (SGOT) 17 U/L (17-59); Albumin 3.9 g/dl (3.5-5.0); Alkaline Phosphatase 108 U/L (38-126); Blood Urea Nitrogen 39 mg/dl (9-20); Calcium 8.9 mg/dl (8.4-10.2); Carbon Dioxide 22 mmol/L (22-30); Chloride 103 mmol/L (98-107); Glucose 178 mg/dl (70-99); Potassium 6.3 mmol/L (3.5-5.1); Sodium 133 mmol/L (135-145); Total Protein 7.6 g/dl (6.3-8.2); eGFR 20.96
== END ==
LOC: REG 13:01
PROVIDERS: ATTENDING PHYSICIAN Specialist
DX: R97.20 Elevated prostate specific antigen [PSA] (principal); N17.9 Acute kidney failure, unspecified
CPT/HCPCS: 36415; 80053; 84153; 84154

== ENCOUNTER 2025-10-20 01:22 | Inpatient (IN) | payer OTHER, SELFPAY ==
[2025-10-19 21:57] VITALS: BP 173/84
[2025-10-19 22:52] LABS: Hematocrit 23.3 % (39.0-52.0); Hemoglobin 7.5 g/dL (13.0-18.0); Mean Corp Hgb Conc. 32.2 g/dL (33.0-37.0); Mean Corpuscular Volume 85.7 fL (80.0-94.0); Nucleated Red Blood Cells % 0 % (-); Platelet Count 247 10^3/uL (130-400); Red Cell Dist. Width 13.7 % (11.5-14.5)
[2025-10-19 23:17] LABS: ALT (SGPT) 11 U/L (0-50); AST (SGOT) 16 U/L (17-59); Albumin 3.5 g/dl (3.5-5.0); Alkaline Phosphatase 107 U/L (38-126); Blood Urea Nitrogen 42 mg/dl (9-20); Calcium 8.4 mg/dl (8.4-10.2); Carbon Dioxide 22 mmol/L (22-30); Chloride 108 mmol/L (98-107); Glucose 186 mg/dl (70-99); Potassium 6.8 mmol/L (3.5-5.1); Sodium 135 mmol/L (135-145); Total Protein 6.9 g/dl (6.3-8.2); eGFR 20.96
[2025-10-19 23:38] LABS: Magnesium 1.6 mg/dl (1.6-2.3)
--- NOTE | 2025-10-19 23:39 | ED.GENMED ---
History of Present Illness
<Vinny Nogueira Jr., PA-C - Last Filed: 10/20/25 00:12>
General
Chief Complaint: Abnormal Lab Value
Source: patient
Exam Limitations: none
Time Seen by Provider: 10/19/25 23:04
Nursing documentation reviewed up to this point in time: agreed with
History of Present Illness
History of Present Illness:
70-year-old male past medical history of CKD presenting to the emergency department after an outpatient potassium level 6.3. He denies any significant symptoms. No chest pain shortness of breath numbness weakness.
Past History
<Vinny Nogueira Jr., PA-C - Last Filed: 10/20/25 00:12>
Past History
ED Past Medical History: HTN, NIDDM and Other (CKD)
ED Past Surgical History: None
Social History
Tobacco: Non-smoker
Alcohol: None
Review of Systems
<Vinny Nogueira Jr., PA-C - Last Filed: 10/20/25 00:12>
Review of Systems
Allergies reviewed?: Yes
All Other Systems: ROS reviewed and negative except as documented in HPI and ROS
Phy Exam
<MITCHELL Parks Jr. Last Filed: 10/20/25 00:12>
Physical Exam
Physical Exam:
GENERAL: Alert , in no apparent distress
EYE: pupils equal and reactive
NECK: Supple, no significant adenopathy.
ENT: o/p clr, mmm.
CARDIAC: Regular rate and rhythm .
LUNGS: Clear breath sounds bilaterally, no acute respiratory distress, no wheezes/rales/rhonchi
ABDOMEN: Soft, without focal tenderness, no r/g, no cvat
NEUROLOGICAL: Alert and oriented, no focal neuro deficits
SKIN: Warm and dry, skin intact.
MUSCULOSKELETAL: No edema, well perfused.
PSYCH: Normal and appropriate interaction.
Course
<Vinny Nogueira Jr., PA-C - Last Filed: 10/20/25 00:12>
Orders/Labs/Results
Orders:
Orders
10/19/25 21:55
EKG [Electrocardiogram (*1)] Urgent
Reason for Study: Other
Other Reason for Exam: high K
10/19/25 21:56
EKG- Treatment ONCE
10/19/25 22:46
CMP [Comprehensive Metabolic Panel] Urgent
Complete Blood Count/With Diff Urgent
Magnesium Urgent
Comment: ADD ON
10/19/25 23:20
Add On- LAB Urgent
Tests Added?: magnesium
10/19/25 23:21
Cardiac Monitoring- Treatment ONCE
Albuterol Sulfate [Ventolin Nebules] 10 mg INH R NOW STA
Dextrose 50%-Water [Dextrose 50% Syringe] 12.5 grams IV [id number] PRN
Dextrose 50%-Water [Dextrose 50% Syringe] 25 grams IV NOW STA
Insulin Human Regular [Novolin R] 10 units IV NOW STA
Sodium Zirconium Cyclosilicate [Lokelma] 10 gram PO NOW STA
10/19/25 23:22
Bedside Glucose PRE IV Insulin- HyperK+ NOW
10/19/25 23:35
Calcium Gluconate 1,000 mg IV NOW STA
10/20/25 00:52
Bedside Glucose POST IV Insulin- HyperK+ Q1HX2,Q2HX2
10/20/25 01:52
Potassium Urgent
Comment: draw 2 hours after regular insulin IV administration
Abnormal Lab Results
10/19/25 10/19/25
22:46 23:45
RBC 2.72 L 10^6/uL
(4.70-6.10)
Hgb 7.5 L g/dL
(13.0-18.0)
Hct 23.3 L %
(39.0-52.0)
MCHC 32.2 L g/dL
(33.0-37.0)
Abs Immat Gran (auto) 0.1 H 10^3/uL
(0-0.05)
Absolute Neuts (auto) 7.6 H 10^3/uL
(1.4-6.5)
Absolute Monos (auto) 0.8 H 10^3/uL
(0.1-0.6)
Lymphocytes % 16.9 L %
(20.5-51.1)
Potassium 6.8 H* mmol/L
(3.5-5.1)
Chloride 108 H mmol/L
(98-107)
BUN 42 H mg/dl
(9-20)
Creatinine 3.1 H mg/dL
(0.7-1.3)
Glucose 186 H mg/dl
(70-99)
AST 16 L U/L
(17-59)
POC Glucose 242 H mg/dl
(70-99)
10/19/25 22:46
Vital Signs
Initial and Last Documented VS:
Initial Vital Signs
Temp Pulse Resp BP Pulse Ox
98.0 F 86 18 173/84 98
10/19/25 21:57 10/19/25 21:57 10/19/25 21:57 10/19/25 21:57 10/19/25 21:57
Last Documented Vital Signs
Temp Pulse Resp BP Pulse Ox
98.0 F 78 15 175/87 98
10/19/25 21:57 10/20/25 00:00 10/20/25 00:00 10/20/25 00:00 10/20/25 00:00
Boogielt;Jj Lee, DO - Last Filed: 10/19/25 23:59>
Orders/Labs/Results
Orders:
Orders
10/19/25 21:55
EKG [Electrocardiogram (*1)] Urgent
Reason for Study: Other
Other Reason for Exam: high K
10/19/25 21:56
EKG- Treatment ONCE
10/19/25 22:46
CMP [Comprehensive Metabolic Panel] Urgent
Complete Blood Count/With Diff Urgent
Magnesium Urgent
Comment: ADD ON
10/19/25 23:20
Add On- LAB Urgent
Tests Added?: magnesium
10/19/25 23:21
Cardiac Monitoring- Treatment ONCE
Albuterol Sulfate [Ventolin Nebules] 10 mg INH R NOW STA
Dextrose 50%-Water [Dextrose 50% Syringe] 12.5 grams IV [id number] PRN
Dextrose 50%-Water [Dextrose 50% Syringe] 25 grams IV NOW STA
Insulin Human Regular [Novolin R] 10 units IV NOW STA
Sodium Zirconium Cyclosilicate [Lokelma] 10 gram PO NOW STA
10/19/25 23:22
Bedside Glucose PRE IV Insulin- HyperK+ NOW
10/19/25 23:35
Calcium Gluconate 1,000 mg IV NOW STA
10/20/25 00:52
Bedside Glucose POST IV Insulin- HyperK+ Q1HX2,Q2HX2
10/20/25 01:52
Potassium Urgent
Comment: draw 2 hours after regular insulin IV administration
Abnormal Lab Results
10/19/25 10/19/25
22:46 23:45
RBC 2.72 L 10^6/uL
(4.70-6.10)
Hgb 7.5 L g/dL
(13.0-18.0)
Hct 23.3 L %
(39.0-52.0)
MCHC 32.2 L g/dL
(33.0-37.0)
Abs Immat Gran (auto) 0.1 H 10^3/uL
(0-0.05)
Absolute Neuts (auto) 7.6 H 10^3/uL
(1.4-6.5)
Absolute Monos (auto) 0.8 H 10^3/uL
(0.1-0.6)
Lymphocytes % 16.9 L %
(20.5-51.1)
Potassium 6.8 H* mmol/L
(3.5-5.1)
Chloride 108 H mmol/L
(98-107)
BUN 42 H mg/dl
(9-20)
Creatinine 3.1 H mg/dL
(0.7-1.3)
Glucose 186 H mg/dl
(70-99)
AST 16 L U/L
(17-59)
POC Glucose 242 H mg/dl
(70-99)
10/19/25 22:46
Vital Signs
Initial and Last Documented VS:
Initial Vital Signs
Temp Pulse Resp BP Pulse Ox
98.0 F 86 18 173/84 98
10/19/25 21:57 10/19/25 21:57 10/19/25 21:57 10/19/25 21:57 10/19/25 21:57
Last Documented Vital Signs
Temp Pulse Resp BP Pulse Ox
98.0 F 78 15 175/87 98
10/19/25 21:57 10/20/25 00:00 10/20/25 00:00 10/20/25 00:00 10/20/25 00:00
<CAROLINE Parks Jr.C - Last Filed: 10/20/25 00:12>
MDM/Problems Addressed
MDM/Problems Addressed:
70-year-old male presenting to the emergency department today with concerns of elevated potassium level as an outpatient. 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 Has had elevated levels in the past. Patient denies any significant changes in medications or
significant potassium consumption potassium 6.8 here without hemostation. Patient started on treatment with Lokelma and calcium gluconate. No significant EKG changes. Admitted for further treatment and monitoring.
<Vinny Nogueira Jr., PA-C - Last Filed: 10/20/25 00:12>
*Pulse Oximetry
SaO2: 98
Oxygen Mode of Delivery: Room air
Patient hypoxic: no (98)
*Critical Care Note
Total Time (30-74mins, 75-104mins- exclusive of procedures): Not Applicable
ED Attending Note
<Vinny Nogueira Jr., PA-C - Last Filed: 10/20/25 00:12>
-
Portions of this chart may have been created with voice recognition software.� Occasional wrong word or��sound alike� substitutions may have occurred due to the inherent limitations of voice recognition software.
<Jj Lee DO - Last Filed: 10/19/25 23:59>
ED Attending Note
Patient seen and examined by attending physician: Yes
I performed the substantive portion of visit, reviewed & personally made and approve the management plan that is documented in note by myself or KEITH.: Yes
ED Attending Note:
70-year-old male presented with hyperkalemia done earlier in the day. No symptoms. Patient seen conjunction with the PA. I have reviewed and agree with his history and treatment physical exam, patient awake alert and oriented, no acute distress.
Very conversant. Skin is warm and dry. No respiratory distress. Patient to be admitted to the hospitalist service for hyperkalemia.
Discharge Plan
Departure
Patient Disposition: Admit
Date of Disposition: 10/20/25
Time of Disposition: 00:12
Admit to: Telemetry
Admit to doctor: Khang
Presentation/result/management discussed w/ accepting MD/DO: Hospitalist
Patient with high blood pressure during this ER visit?: No
Condition: Fair
Covid-19: Not Applicable
Discharge Problem:
Hyperkalemia
Prescriptions:
No Action
tamsulosin 0.4 mg Capsule
0.4 mg PO DAILY Qty: 30 0RF
finasteride 5 mg Tablet
5 mg PO DAILY Qty: 30 0RF
sulfamethoxazole-trimethoprim [Bactrim DS] 800-160 mg tablet
1 tab PO BID Qty: 14 0RF
Referrals:
NONE,* [Family Provider, Internal Medicine]
Interventions
Interventions:
*Risk Screen - Suicide Last Done: 10/19/25 21:57
*General Assessment Last Done: 10/19/25 23:08
*Neglect/Abuse Screening Last Done: 10/19/25 21:57
*ED COVID-19 Vaccine History Last Done: 10/19/25 23:30
*ED Influenza Vaccine History Last Done: 10/19/25 23:30
[facility] Fall Risk Assessment Tool Last Done: 10/20/25 00:00
Discharge Date and Time
Print Language: AZERI
[2025-10-19 23:47] LABS: Glucose - Point of Care 242 mg/dl (70-99)
[2025-10-19] MEDS: CALCIUM GLUCONATE 1000 MG IV (23:48)
[2025-10-19] MEDS: DEXTROSE 50% SYRINGE 25 GRAMS IV (23:51)
[2025-10-19] MEDS: NOVOLIN R 10 UNITS IV (23:52)
[2025-10-19] MEDS: VENTOLIN NEBULES 10 MG INH (23:52)
[2025-10-19] MEDS: LOKELMA 10 GRAM PO (23:54)
[2025-10-20] VITALS (14 sets, daily range): BP systolic 135–175; BP diastolic 59–87; BMI 28.9
[2025-10-20 00:53] LABS: Glucose - Point of Care 233 mg/dl (70-99)
--- NOTE | 2025-10-20 01:09 | HPS.HSE ---
Family Physician
-
Family Physician: * NONE
Chief Complaint
-
Abnormal labs
History of Present Illness
He is a 70-year-old woman with a history of CKD stage IV, type 2 diabetes, obstructive uropathy, BPH, chronic anemia who presents to the emergency department after outpatient blood work was shown to have hyperkalemia with a serum potassium of 6.3.
Patient without any acute symptoms. He had a similar presentation recently when he came in for urinary catheter malfunction and was found to be hyperkalemic and treated medically. After discharge patient reported that he was started on Bactrim and
he finished 8 days yesterday. He no longer has any abdominal symptoms or urinary symptoms.
In the emergency department she was hypertensive to 170/80 with a pulse rate of 85 and was satting 90% on room air. ECG shows a normal sinus rhythm at a rate of 82 with slightly peaked waves in V2 through V4. His CBC showed a hemoglobin of 7.5
which is down trended from 8.3 on prior. He is electrolytes notable for a sodium of 135 and a potassium of 6.8. His BUN and creatinine were similar to prior at 43 and 3.1 with a glucose of 233.
Medical History
Past Medical History
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
Past Surgical History: Reports None
Social History
Tobacco: Non-smoker
Alcohol: None
Drug: None
Family History
Family History: Not pertinent
Allergies / Home Medications
Allergies reflects when Allergies were last updated in [facility].
Home Medications with original date entered in [facility]
Allergy/Medication List:
Allergies
Allergy/AdvReac Type Severity Reaction Status Date / Time
shellfish derived Allergy Itching Verified 10/04/25 11:15
Home Medications
finasteride 5 mg tablet 5 mg PO DAILY BPH #30 tabs 09/27/25
tamsulosin 0.4 mg capsule 0.4 mg PO DAILY BPH #30 caps 09/27/25
Review of Systems
-
History Source: Patient
A 12 point ROS was completed and negative except as noted: Yes
Constitutional: Reports No Symptoms
EENT: Reports No Symptoms
Respiratory: Reports No Symptoms
Cardiac: Reports No Symptoms
Abdomen/GI: Reports No Symptoms
: Reports No Symptoms
Musculoskeletal: Reports No Symptoms
Skin: Reports No Symptoms
Neurological: Reports No Symptoms
Endocrine: Reports No Symptoms
Hematologic/Lymphatic: Reports No Symptoms
Psych: Reports No Symptoms
Physical Exam
Vital Signs
Vital Signs
Temp Pulse Resp BP Pulse Ox
98.0 F 85 18 175/87 97
10/19/25 21:57 10/20/25 00:15 10/20/25 00:15 10/20/25 00:00 10/20/25 00:15
Physical Exam
General: Well Developed, Well Nourished and No Apparent Distress
HEENT: NormoCephalic, Moist mucous membranes and Atraumatic
Respiratory: Clear
Cardiac: S1/S2 and Regular Rhythm; No Murmur or Rub
GI: Soft, Non Tender, Non Distended and Normal Bowel Sounds; No Organomegaly
Rectal: Deferred by Provider
Musculoskeletal: No Clubbing, No Cyanosis and No Edema
Skin: No Rash
Neuro: AO x 3 and Nonfocal/grossly intact
Laboratory Results
-
10/19/25 22:46
Laboratory Results
Total Bilirubin 0.2 mg/dl (0.2-1.3) 10/19/25 22:46
AST 16 U/L (17-59) L 10/19/25 22:46
ALT 11 U/L (0-50) 10/19/25 22:46
Alkaline Phosphatase 107 U/L (38-126) 10/19/25 22:46
Data Reviewed
-
Lab Data: Labs Reviewed by me
Old Records: Reviewed
Impression/Plan
-
IMPRESSION:
70-year-old with history of CKD stage IV-V, chronic obstructive uropathy with BPH status post indwelling urinary cath and on tamsulosin who presents with recurrent episode of hyperkalemia to 6.8 and slight ECG changes. He has has been on Bactrim
and completed a course of 8 days yesterday.
PLAN:
Hyperkalemia -suspect secondary to CKD, diabetes and likely recent trimethoprim from Bactrim.
- Admit to telemetry
- Status post temporizing measures in the ED
- Repeating potassium in 4 hours and then in the a.m.
- Will continue [facility] for now
- Gentle hydration with half-normal saline and sodium bicarb
- Correct hyperglycemia with sliding scale insulin
- May require further temporization if potassium still remains elevated
-Strict low potassium diet
� Nephrology consult
Anemia - Chronic anemia, SEBASTIEN, kidney disease.
- type and screen
- transfuse for hgb < 7
- may need outpatient epo, checking iron studies in am
BPH
� Continue finasteride, continue tamsulosin
DVT prophylaxis -heparin subcu
CODE STATUS�full code
[2025-10-20 01:59] LABS: Glucose - Point of Care 212 mg/dl (70-99)
[2025-10-20 02:29] LABS: Potassium 5.8 mmol/L (3.5-5.1)
[2025-10-20] MEDS: SODIUM BICARBONATE 1150 MEQ IV (03:30)
[2025-10-20 06:37] LABS: Blood Urea Nitrogen 40 mg/dl (9-20); Calcium 8.5 mg/dl (8.4-10.2); Carbon Dioxide 21 mmol/L (22-30); Chloride 111 mmol/L (98-107); Glucose 134 mg/dl (70-99); Iron 39 ug/dl (49-181); Potassium 5.8 mmol/L (3.5-5.1); Sodium 135 mmol/L (135-145); eGFR 22.71
[2025-10-20 06:42] LABS: Hematocrit 21.4 % (39.0-52.0); Hemoglobin 7.1 g/dL (13.0-18.0); Mean Corp Hgb Conc. 33.2 g/dL (33.0-37.0); Mean Corpuscular Volume 84.3 fL (80.0-94.0); Platelet Count 226 10^3/uL (130-400); Red Cell Dist. Width 13.7 % (11.5-14.5)
[2025-10-20 06:46] LABS: Total Iron Binding Capacity 222 ug/dl (261-462)
[2025-10-20 07:18] LABS: Ferritin 327.0 ng/ml (17.9-464.0)
[2025-10-20] MEDS: FLOMAX 0.4 MG PO (08:18)
[2025-10-20] MEDS: LOKELMA 10 GRAM PO ×3 (08:18→18:02)
[2025-10-20] MEDS: HEPARIN 5000 UNITS SC ×2 (08:18→20:57)
[2025-10-20] MEDS: PROSCAR 5 MG PO (08:19)
--- NOTE | 2025-10-20 09:05 | CM ---
Chart reviewed and spoke with patient at ED bedside
He was at ED multiple times this month
Lives with 2 friends [place]
Independent
Has a reina catheter and he can take care of it
PCP none
Provided [facility] info
Does NOT have medical insurance
Per [employer] he does not meet criteria for Medicare since [place] of working [place].
His income is too high for medicaid.
This CM again encouraged him to look into affordable care to pick a health insurance which meets his needs.
He is planning to go back to [facility] once he is better
This CM emphasized that he would need a health plan in to address his care needs now.
Patient agrees to research on his own
Pharmacy [facility] on [address]
no hx of VN nor SNF
DCP is to go home
CM will continue to follow up for dcp neds
--- NOTE | 2025-10-20 09:50 | W.PN.HOSP.TC ---
Today's Communication/Plan
-
See plan
Assessment / Plan
Assessment / Plan
Impression
70-year-old with history of CKD stage IV-V, chronic obstructive uropathy with BPH status post indwelling urinary cath and on tamsulosin who presents with recurrent episode of hyperkalemia to 6.8 and slight ECG changes. He has has been on Bactrim
and completed a course of 8 days 1 day prior to presentation.
Hyperkalemia
Obstructive uropathy.
CKD stage IV secondary to above
Kenny catheter in place
Enlarged prostate.
Chronic anemia
Plan
Life-threatening hyperkalemia.
Hyperkalemia secondary to CKD, obstructive uropathy's and recent TMP sulfa administration
Mild metabolic acidosis.
No EKG changes upon admission.
Potassium temporized while in ED.
Kenny catheter remains in place (exchanged about 3 weeks prior to presentation)
Continue Lokelma
Observe off IV fluids (sufficient oral intake while on low potassium diet)
Discussed with nephrology
BPH with obstructive uropathy
Recently elevated PSA at that time concern for biopsy from urinary tract infection.
Repeat PSA pending.
Patient has outpatient urology follow-up for prostate biopsy.
Maintain Kenny.
Continue Flomax and Proscar
Chronic normocytic anemia
Suspect secondary to CKD, recent hematuria.
Mildly decreased iron stores.
Patient had remote colonoscopy.
Start IV iron while inpatient.
Follow CBC in AM.
Currently no indication for transfusion.
? Diabetes by history. Patient denied
Check hemoglobin A1c
Full code
DVT prophylaxis heparin
Anticipated Discharge: 24 - 48 hours
Subjective/Interval History
-
Date of Service: October 20, 2025
Objective Data
-
Labs:
Laboratory Results
10/19/25 10/20/25 10/20/25
22:46 01:56 05:57
WBC 10.6 10.7
Hgb 7.5 L 7.1 L
Hct 23.3 L 21.4 L
Plt Count 247 226
Sodium 135 135
Potassium 6.8 H* 5.8 H 5.8 H
Chloride 108 H 111 H
Carbon Dioxide 22 21 L
BUN 42 H 40 H
Creatinine 3.1 H 2.9 H
Glucose 186 H 134 H
Calcium 8.4 8.5
Total Bilirubin 0.2
AST 16 L
ALT 11
Alkaline Phosphatase 107
10/20/25
18:00
WBC
Hgb
Hct
Plt Count
Sodium Pending
Potassium Pending
Chloride Pending
Carbon Dioxide Pending
BUN Pending
Creatinine Pending
Glucose Pending
Calcium Pending
Total Bilirubin
AST
ALT
Alkaline Phosphatase
Vital Signs:
Vital Signs
Temp Pulse Resp BP Pulse Ox
98.0 F 70 17 140/62 97
10/19/25 21:57 10/20/25 03:00 10/20/25 03:00 10/20/25 03:00 10/20/25 00:30
I&O
10/19/25 10/20/25 10/21/25
06:59 06:59 06:59
Output Total 250 / 250
Balance -250 / -250
Physical Exam
-
General: Well Developed and No Apparent Distress
HEENT: Normocephalic, Atraumatic and Moist Mucous Membranes
Respiratory: Clear to Auscultation
Cardiac: Regular Rhythm and S1/S2; Negative Murmur, Rub or Gallop
GI: Soft, Nontender, Nondistended and Normal Bowel Sounds; Negative Organomegaly
Rectal: Deferred by Provider
Genito-urinary: Kenny
Musculoskeletal: No Clubbing, No Cyanosis and No Edema
Skin: Negative Rash
Neuro: Nonfocal/Grossly Intact
--- NOTE | 2025-10-20 10:18 | W.CON.NEPH ---
Consultation
-
Date/Time Consultation Requested: 10/20/25203
Date/Time Consultation Performed: 10/20/25 0983
Requesting Provider: Salena Quiñonez MD
Performing Provider: Phyllis Gomez
Reason for Consultation: CKD, hyperkalemia
Medical History
-
Chief Complaint: Abnormal labs
History of Present Illness:
70-year-old woman with a history of CKD stage IV cr high 2 range, type 2 diabetes, obstructive uropathy from BPH on Finasteride, flomax and reina catheter, chronic anemia who presents to the emergency department after outpatient blood work was
shown to have hyperkalemia with a serum potassium of 6.3. He was recently admitted in the hospital beginning of September with a AK I creatinine peaked at 17, noted obstructive uropathy and with the Reina catheter cr settle down high 2 range at
discharge. He had an ER visit more than a week ago with a cloudy urine, malfunction reina, he was given antibiotic course with the Bactrim for 8 days which she finished day before.
Lab shows potassium 6.8, creatinine 3.1, BUN 42. CBC showed a hemoglobin of 7.5 which is down trended from 8.3 on prior. Nephrology asked to evaluate for hyperkalemia. He offers no chest pain or shortness of breath. No abdominal pain or
diarrhea or constipation. No nausea or vomiting. No fevers or chills. Reina catheter was exchanged within last 2 weeks. He reports compliant with his diet and medications. Currently lives with his friend locally but he was living in [place]
before.
Repeat labs this morning shows potassium 5.8 with a bicarbonate fluid, calcium and temperature elevation with the and insulin. He had a dose of Lokelma too.
Past Medical History
Diet-controlled diabetes, obstructive uropathy secondary to BPH, bilateral pyelonephritis/cystitis, chronic anemia
Social History
Tobacco: Non-Smoker
Alcohol: None
Living: Other ( lives with a friend)
Family History
Family History: Not Pertinent
Allergies / Home Medications
Allergy/AdvReac Type Severity Reaction Status Date / Time
shellfish derived Allergy Itching Verified 10/04/25 11:15
�Medication �Instructions �Recorded �Confirmed �Type
finasteride 5 mg tablet 5 mg PO DAILY BPH #30 tabs 09/27/25 10/20/25 Rx
tamsulosin 0.4 mg capsule 0.4 mg PO DAILY BPH #30 caps 09/27/25 10/20/25 Rx
Review of Systems
-
All other systems: Negative unless noted
Physical Exam
Vital Signs
Vital Signs
Temp Pulse Resp BP Pulse Ox
98.0 F 70 17 140/62 97
10/19/25 21:57 10/20/25 03:00 10/20/25 03:00 10/20/25 03:00 10/20/25 00:30
Lab Results
WBC 10.7 10^3/uL (4.8-10.8) 10/20/25 05:57
RBC 2.54 10^6/uL (4.70-6.10) L 10/20/25 05:57
Hgb 7.1 g/dL (13.0-18.0) L 10/20/25 05:57
Hct 21.4 % (39.0-52.0) L 10/20/25 05:57
Plt Count 226 10^3/uL (130-400) 10/20/25 05:57
eGFR 22.71 10/20/25 05:57
Albumin 3.5 g/dl (3.5-5.0) 10/19/25 22:46
Physical Exam
General: Awake, Alert, Oriented, AOx3, No Distress and Nontoxic
HEENT: EOMI, Anicteric, Conjunctivae Clear and Facial Symmetry
Respiratory: Clear, Normal Excursion and Nonlabored Respirations
Cardiac: S1/S2 and Regular Rate/Rhythm
Breast: Deferred by me
Abdomen: Soft, Nontender and Nondistended
Genito-urinary: Clear Urine
Musculoskeletal: No Cyanosis and No Edema
Skin: Other ( chronic skin changes in the lower extremities)
Neuro: Nonfocal/Grossly Intact
Psych: Mood/afflect pleasant, Insight/judgement good and Appropriate
Data Reviewed
-
Labs: Labs Reviewed by me, Discussed with Physician and Discussed with Patient
Assessment/Plan
-
Impression
Hyperkalemia
Obstructive uropathy.
CKD stage IV secondary to above-baseline high 2range
mild met acidosis
Enlarged prostate.
Chronic anemia
Plan
A/w hyperkalemia recent bactrim use
Hyperkalemia improving, continue Lokelam course
repeat labs later
low k diet moving forward and no more bactrim
Stable renal function creatinine 2.9
Mild metabolic acidosis monitor off the fluid
anemia, fe sta only 17%, agree with IV iron course
When necessary transfusions
Blood pressure stable but on high end monitor for now
may consider med if bp remains high
keep Reina catheter
follow labs
need to follow nephro out pt in his insurance coverage practice
d/w primary
[2025-10-20] MEDS: FERRLECIT 110 MG IV (14:55)
[2025-10-20 15:09] LABS: Glucose - Point of Care 235 mg/dl (70-99)
[2025-10-20 17:02] LABS: Glucose - Point of Care 179 mg/dl (70-99)
[2025-10-20] MEDS: NOVOLOG FLEXPEN-LOW RESISTANCE 1 UNITS SC (17:04)
[2025-10-20 20:05] LABS: Blood Urea Nitrogen 35 mg/dl (9-20); Calcium 8.1 mg/dl (8.4-10.2); Carbon Dioxide 24 mmol/L (22-30); Chloride 104 mmol/L (98-107); Estimated Creatinine Clearance 28 ml/min; Glucose 142 mg/dl (70-99); Potassium 5.0 mmol/L (3.5-5.1); Sodium 132 mmol/L (135-145); eGFR 24.74
[2025-10-20 21:25] LABS: Glucose - Point of Care 185 mg/dl (70-99)
[2025-10-21 03:26] VITALS: BP 143/67
[2025-10-21 06:58] LABS: Glucose - Point of Care 116 mg/dl (70-99)
[2025-10-21 07:00] VITALS: BP 149/67
[2025-10-21] MEDS: NOVOLOG FLEXPEN-LOW RESISTANCE SC (07:59)
[2025-10-21] MEDS: FLOMAX 0.4 MG PO (08:12)
[2025-10-21] MEDS: PROSCAR 5 MG PO (08:12)
[2025-10-21] MEDS: HEPARIN 5000 UNITS SC ×2 (08:12→21:14)
[2025-10-21 08:28] LABS: Hematocrit 22.9 % (39.0-52.0); Hemoglobin 7.5 g/dL (13.0-18.0); Mean Corp Hgb Conc. 32.8 g/dL (33.0-37.0); Mean Corpuscular Volume 86.7 fL (80.0-94.0); Nucleated Red Blood Cells % 0 % (-); Platelet Count 231 10^3/uL (130-400); Red Cell Dist. Width 13.5 % (11.5-14.5)
[2025-10-21 08:55] LABS: Blood Urea Nitrogen 32 mg/dl (9-20); Calcium 8.3 mg/dl (8.4-10.2); Carbon Dioxide 26 mmol/L (22-30); Chloride 106 mmol/L (98-107); Estimated Creatinine Clearance 29 ml/min; Glucose 102 mg/dl (70-99); Potassium 5.1 mmol/L (3.5-5.1); Sodium 135 mmol/L (135-145); eGFR 25.88
[2025-10-21 10:04] LABS: Glycohemoglobin (HgbA1c) 6.8 % (4.0-5.9)
[2025-10-21] MEDS: TYLENOL 650 MG PO (10:35)
[2025-10-21 11:00] VITALS: BP 135/62
[2025-10-21 11:41] LABS: Glucose - Point of Care 199 mg/dl (70-99)
[2025-10-21] MEDS: NOVOLOG FLEXPEN-LOW RESISTANCE 1 UNITS SC (12:16)
[2025-10-21 12:57] LABS: Urine Character Bloody (Clear)
[2025-10-21 13:04] LABS: Urine Red Blood Cell >100 /HPF (0-2)
[2025-10-21] MEDS: FERRLECIT 110 MG IV (13:16)
--- NOTE | 2025-10-21 14:05 | W.PN.HOSP.TC ---
Today's Communication/Plan
-
Replace Reina
urology consult
f/u cultures
Monitor BMP
Assessment / Plan
Assessment / Plan
Impression
70-year-old with history of CKD stage IV-V, chronic obstructive uropathy with BPH status post indwelling urinary cath and on tamsulosin who presents with recurrent episode of hyperkalemia to 6.8 and slight ECG changes. He has has been on Bactrim
and completed a course of 8 days 1 day prior to presentation.
Hyperkalemia
Obstructive uropathy.
CKD stage IV secondary to above
Reina catheter in place
Enlarged prostate.
Chronic anemia
Plan
Life-threatening hyperkalemia.
Hyperkalemia secondary to CKD, obstructive uropathy's and recent TMP sulfa administration
Mild metabolic acidosis.
No EKG changes upon admission.
Potassium temporized while in ED.
Reina catheter remains in place (exchanged about 3 weeks prior to presentation)
Continue Lokelma
Observe off IV fluids (sufficient oral intake while on low potassium diet)
Discussed with nephrology
BPH with obstructive uropathy
Recently elevated PSA at that time concern for biopsy from urinary tract infection.
Repeat PSA pending.
Patient has outpatient urology follow-up for prostate biopsy.
Maintain Reina.
Continue Flomax and Proscar
Chronic normocytic anemia
Suspect secondary to CKD, recent hematuria.
Mildly decreased iron stores.
Patient had remote colonoscopy.
Start IV iron while inpatient.
Follow CBC in AM.
Currently no indication for transfusion.
? Diabetes by history. Patient denied
Check hemoglobin A1c
Full code
DVT prophylaxis heparin
Update 10/21 - still having burning around site of reina; Changed reina with clots. also noted penile foreskin enlarged - Consulted urology. F/u repeat UA. BMP improved with reina althugh K still on higher side
Anticipated Discharge: 24 - 48 hours
Subjective/Interval History
-
Date of Service: October 21, 2025
still having urinary discomfort around catheter site- foreskin appears enlarged
Objective Data
-
Labs:
Laboratory Results
10/21/25
07:53
WBC 9.3
Hgb 7.5 L
Hct 22.9 L
Plt Count 231
Sodium 135
Potassium 5.1
Chloride 106
Carbon Dioxide 26
BUN 32 H
Creatinine 2.6 H
Glucose 102 H
Calcium 8.3 L
Vital Signs:
Vital Signs
Temp Pulse Resp BP Pulse Ox
97.8 F 72 16 135/62 99
10/21/25 11:00 10/21/25 11:00 10/21/25 11:00 10/21/25 11:00 10/21/25 11:00
I&O
10/20/25 10/21/25 10/22/25
06:59 06:59 06:59
Intake Total 720 / 720
Output Total 250 / 250 2450 / 2450 2225 / 2225
Balance -250 / -250 -2450 / -2450 -1505 / -1505
Review of Systems
-
History Source: Patient
All other systems: Not reviewed unless documented
Data Reviewed
-
Labs: Labs Reviewed by me and Discussed with Patient
--- NOTE | 2025-10-21 14:56 | W.PN.NEPH.PH ---
Today's Communication / Plan
-
follow labs
monitor hematuria post reina exchange
Assessment/Plan
-
Impression
Hyperkalemia
Obstructive uropathy.
CKD stage IV secondary to above-baseline high 2range
mild met acidosis
Enlarged prostate.
Chronic anemia
Plan
A/w hyperkalemia recent bactrim use
Hyperkalemia resolved, off LOkelma
low k diet reviewed wiht pt and no more bactrim
improving renal function cr 2.7
Mild metabolic acidosis resolved
anemia, fe sta only 17%, cont with IV iron course, prn trasnfusion
reina downsized due to pain, now with hematuria-monitor probably reina trauma
Blood pressure stable
keep Reina catheter
follow labs
need to follow nephro out pt in his insurance coverage practice
d/w nursing
-
-
Date of Service: October 21, 2025
CC / HPI / ROS
-
Chief Complaint:
CLAU
History of Present Illness:
CLAU/Cr down to 2.6
K 5.[address]
Review of Systems:
No chest pain or shortness of breath
penile discomfort better with downsizing of reina
Labs
-
Labs:
WBC 9.3 10^3/uL (4.8-10.8) 10/21/25 07:53
RBC 2.64 10^6/uL (4.70-6.10) L 10/21/25 07:53
Hgb 7.5 g/dL (13.0-18.0) L 10/21/25 07:53
Hct 22.9 % (39.0-52.0) L 10/21/25 07:53
Plt Count 231 10^3/uL (130-400) 10/21/25 07:53
Sodium 135 mmol/L (135-145) 10/21/25 07:53
Potassium 5.1 mmol/L (3.5-5.1) 10/21/25 07:53
Chloride 106 mmol/L (98-107) 10/21/25 07:53
Carbon Dioxide 26 mmol/L (22-30) 10/21/25 07:53
BUN 32 mg/dl (9-20) H 10/21/25 07:53
Creatinine 2.6 mg/dL (0.7-1.3) H 10/21/25 07:53
eGFR 25.88 10/21/25 07:53
Glucose 102 mg/dl (70-99) H 10/21/25 07:53
Calcium 8.3 mg/dl (8.4-10.2) L 10/21/25 07:53
Albumin 3.5 g/dl (3.5-5.0) 10/19/25 22:46
Physical Exam
-
Vital Signs:
Vital Signs
Temp Pulse Resp BP Pulse Ox
97.8 F 72 16 135/62 99
10/21/25 11:00 10/21/25 11:00 10/21/25 11:00 10/21/25 11:00 10/21/25 11:00
Cardiovascular:: Regular rate and rhythm
Respiratory:: Bilateral: CTA
Lung Excursion:: Normal
Abdomen:: Nontender and Soft
Extremity Edema:: None: Bilateral:
Reina Catheter: Yes
[2025-10-21 15:28] VITALS: BP 143/56
[2025-10-21 16:24] LABS: Glucose - Point of Care 207 mg/dl (70-99)
--- NOTE | 2025-10-21 17:05 | CONS.URO ---
Consultation
-
Date/Time Consultation Performed: 10/21/2025 1705
Performing Provider: Joni
Reason for Consultation: Obstructive Uropathy
Medical History
History of Present Illness
Prostatomegaly with Voiding Dysfunction, PSA Elevation -- Possible Prostate Cancer
09/18- [facility] admission with Prostatomegaly with Obstructive Uropathy and Renal Failure
09/18 creatinine = 17.6; PSA 62; 10/07/25 creatinine = 2.8
10/19/2025 was directed to [facility] lab --> critical hyperkalemia and renal insufficiency detected --> directed to ED
Past Medical History
Past Medical History: NIDDM and Renal Failure
Allergies/Home Medications
Allergies
Allergy/AdvReac Type Severity Reaction Status Date / Time
shellfish derived Allergy Itching Verified 10/04/25 11:15
Home Medications
�Medication �Instructions �Recorded �Confirmed �Type
finasteride 5 mg tablet 5 mg PO DAILY BPH #30 tabs 09/27/25 10/20/25 Rx
tamsulosin 0.4 mg capsule 0.4 mg PO DAILY BPH #30 caps 09/27/25 10/20/25 Rx
Physical Exam
Vital Signs
Vital Signs
Temp Pulse Resp BP Pulse Ox
97.8 F 74 18 143/56 97
10/21/25 15:28 10/21/25 15:28 10/21/25 15:28 10/21/25 15:28 10/21/25 15:28
Lab / Testing Results
Laboratory Results
10/21/25 07:53
10/21/25 07:53
Physical Exam
General: No Apparent Distress
Genito-urinary: Kenny Catheter
Assessment / Plan
-
Renal Insufficiency with critical Hyperkalemia
Obstructive Uropathy due to Bladderoutlet Obstruction -- Prostatomegaly or Prostate Cancer [PSA > 60 last month]
Rec:
medical team to address renal insufficiency and hyperkalemia
keep Kenny
await pending PSA: if it remains substantially elevated, then MRI of prostate and prostate biopsy woyld be arranged to evaluate for likely prostate cancer
Data Reviewed
-
Lab Data: Labs Reviewed
Old Records: Reviewed
--- NOTE | 2025-10-21 17:30 | PTCARENOTE ---
urology made aware of reina with no drainage since 1630. Dr. Quinones up to floor, placed a 22Fr [address] catheter. CBI initiated per order. will continue to monitor.
--- NOTE | 2025-10-21 17:39 | W.PN.UPDATE ---
Update Note
Progress Note Update
PE: NAD
Pahllus: paraphimosis with clogged 16 Fr Kenny
paraphimosis reduced manually
16 Fr Kenny removed --> blood clot obscuring fenestration
Betadine prepped
22 Fr 3-way Kenny placed with return of pink urine; CBI initiated
RN present
[2025-10-21] MEDS: NOVOLOG FLEXPEN-LOW RESISTANCE 2 UNITS SC (17:54)
[2025-10-21 19:49] VITALS: BP 158/67
[2025-10-21 21:24] LABS: Glucose - Point of Care 211 mg/dl (70-99)
[2025-10-21 23:24] VITALS: BP 143/55
[2025-10-22 03:55] VITALS: BP 155/65
[2025-10-22 07:00] VITALS: BP 146/72
[2025-10-22 07:02] LABS: Glucose - Point of Care 111 mg/dl (70-99)
[2025-10-22] MEDS: FLOMAX 0.4 MG PO (07:40)
[2025-10-22] MEDS: PROSCAR 5 MG PO (07:40)
[2025-10-22] MEDS: HEPARIN 5000 UNITS SC ×2 (07:40→20:15)
[2025-10-22] MEDS: NOVOLOG FLEXPEN-LOW RESISTANCE SC (07:44)
[2025-10-22 08:27] LABS: Hematocrit 23.7 % (39.0-52.0); Hemoglobin 7.6 g/dL (13.0-18.0); Mean Corp Hgb Conc. 32.1 g/dL (33.0-37.0); Mean Corpuscular Volume 85.3 fL (80.0-94.0); Platelet Count 227 10^3/uL (130-400); Red Cell Dist. Width 13.4 % (11.5-14.5)
[2025-10-22 08:43] LABS: ALT (SGPT) < 10 U/L (0-50); AST (SGOT) 14 U/L (17-59); Albumin 3.2 g/dl (3.5-5.0); Alkaline Phosphatase 93 U/L (38-126); Blood Urea Nitrogen 36 mg/dl (9-20); Calcium 8.4 mg/dl (8.4-10.2); Carbon Dioxide 22 mmol/L (22-30); Chloride 105 mmol/L (98-107); Estimated Creatinine Clearance 28 ml/min; Glucose 97 mg/dl (70-99); Potassium 4.9 mmol/L (3.5-5.1); Sodium 135 mmol/L (135-145); Total Protein 6.6 g/dl (6.3-8.2); eGFR 24.74
--- NOTE | 2025-10-22 10:42 | W.PN.URO.CBU ---
Today's Communication / Plan
-
stop CBI
fit for discharge urologically
Assessment / Plan
-
Renal Insufficiency with critical Hyperkalemia
Obstructive Uropathy due to Bladder outlet Obstruction -- Prostatomegaly or Prostate Cancer [PSA > 60 last month] -- PSA from 10/19 remains pending
Paraphimosis - reduced
Kenny malfunction due to clot obstruction -- remedied by placement of larger catheter
Hematuria - resolved
Diagnosis
-
Date of Service: October 22, 2025
-
Patient Diagnosis:
Renal Insufficiency with critical Hyperkalemia
Obstructive Uropathy due to Bladder outlet Obstruction -- Prostatomegaly or Prostate Cancer [PSA > 60 last month]
Paraphimosis - reduced
Kenny malfunction due to clot obstruction -- remedied by placement of larger catheter
Subjective
-
'I feel so much better.'
Objective
-
Vital Signs
Temp Pulse Resp BP Pulse Ox
98.1 F 69 16 146/72 96
10/22/25 07:00 10/22/25 07:00 10/22/25 07:00 10/22/25 07:00 10/22/25 07:48
Intake and Output
10/21/25 10/22/25 10/23/25
06:59 06:59 06:59
Intake Total 1919
Output Total 2450 / 2450 5025 / 5025
Balance -2450 / -2450 -3105 / -3105
Intake:
Oral fluids 1919
Output:
Urine, Kenny 2450 / 2450 2750 / 2750
True Urine Output from CBI 2274 / 2274
Laboratory Results
10/22/25 06:46
10/22/25 06:46
PSA from 10/19/2025 -- pending
Physical Exam
-
General - well developed, well nourished, no acute distress
Genitalia - reduced preputial edema; Kenny draining clear outflow
Care Review
Data Reviewed
Discussed with: Nursing
[2025-10-22 11:00] VITALS: BP 126/58
--- NOTE | 2025-10-22 11:08 | W.PN.NEPH.PH ---
Today's Communication / Plan
-
ok for d/c
Assessment/Plan
-
Impression
Hyperkalemia
Obstructive uropathy.
CKD stage IV secondary to above-baseline high 2range
mild met acidosis
Enlarged prostate.
Chronic anemia
Plan
A/w hyperkalemia recent bactrim use
Hyperkalemia resolved, off LOkelma
low k diet reviewed wiht pt and no more bactrim
stable renal function cr 2.7
Mild metabolic acidosis resolved
anemia, fe sta only 17%, cont with IV iron course, prn trasnfusion
reina downsized due to pain, improved hematuria-saw
Blood pressure stable
keep Reina catheter
follow labs
need to follow nephro out pt in his insurance coverage practice
d/w nursing
-
-
Date of Service: October 22, 2025
CC / HPI / ROS
-
Chief Complaint:
CLAU
History of Present Illness:
CLAU/Cr stable at 2.7
K 4.[address]
hb no change 7.6
Review of Systems:
No chest pain or shortness of breath
penile discomfort better with downsizing of reina
Labs
-
Labs:
WBC 9.2 10^3/uL (4.8-10.8) 10/22/25 06:46
RBC 2.78 10^6/uL (4.70-6.10) L 10/22/25 06:46
Hgb 7.6 g/dL (13.0-18.0) L 10/22/25 06:46
Hct 23.7 % (39.0-52.0) L 10/22/25 06:46
Plt Count 227 10^3/uL (130-400) 10/22/25 06:46
Sodium 135 mmol/L (135-145) 10/22/25 06:46
Potassium 4.9 mmol/L (3.5-5.1) 10/22/25 06:46
Chloride 105 mmol/L (98-107) 10/22/25 06:46
Carbon Dioxide 22 mmol/L (22-30) 10/22/25 06:46
BUN 36 mg/dl (9-20) H 10/22/25 06:46
Creatinine 2.7 mg/dL (0.7-1.3) H 10/22/25 06:46
eGFR 24.74 10/22/25 06:46
Glucose 97 mg/dl (70-99) 10/22/25 06:46
Calcium 8.4 mg/dl (8.4-10.2) 10/22/25 06:46
Albumin 3.2 g/dl (3.5-5.0) L 10/22/25 06:46
Physical Exam
-
Vital Signs:
Vital Signs
Temp Pulse Resp BP Pulse Ox
98.1 F 69 16 146/72 96
10/22/25 07:00 10/22/25 07:00 10/22/25 07:00 10/22/25 07:00 10/22/25 07:48
Cardiovascular:: Regular rate and rhythm
Respiratory:: Bilateral: CTA
Lung Excursion:: Normal
Abdomen:: Nontender and Soft
Extremity Edema:: None: Bilateral:
Reina Catheter: Yes
[2025-10-22 12:03] LABS: Glucose - Point of Care 187 mg/dl (70-99)
--- NOTE | 2025-10-22 12:42 | W.PN.HOSP.TC ---
Today's Communication/Plan
-
Reina
Repeat UA
Monitor bmp iin 3 days
f/u urology, nephrology, pcp outpt
Assessment / Plan
Assessment / Plan
Impression
70-year-old with history of CKD stage IV-V, chronic obstructive uropathy with BPH status post indwelling urinary cath and on tamsulosin who presents with recurrent episode of hyperkalemia to 6.8 and slight ECG changes. He has has been on Bactrim
and completed a course of 8 days 1 day prior to presentation.
Hyperkalemia
Obstructive uropathy.
CKD stage IV secondary to above
Reina catheter in place
Enlarged prostate.
Chronic anemia
Plan
Life-threatening hyperkalemia.
Hyperkalemia secondary to CKD, obstructive uropathy's and recent TMP sulfa administration
Mild metabolic acidosis.
No EKG changes upon admission.
Potassium temporized while in ED.
Reina catheter remains in place (exchanged about 3 weeks prior to presentation)
Continue Lokelma
Observe off IV fluids (sufficient oral intake while on low potassium diet)
Discussed with nephrology
BPH with obstructive uropathy
Recently elevated PSA at that time concern for biopsy from urinary tract infection.
Repeat PSA pending.
Patient has outpatient urology follow-up for prostate biopsy.
Maintain Reina.
Continue Flomax and Proscar
Chronic normocytic anemia
Suspect secondary to CKD, recent hematuria.
Mildly decreased iron stores.
Patient had remote colonoscopy.
Start IV iron while inpatient.
Follow CBC in AM.
Currently no indication for transfusion.
? Diabetes by history. Patient denied
Check hemoglobin A1c
Full code
DVT prophylaxis heparin
Update 10/21 - still having burning around site of reina; Changed reina with clots. also noted penile foreskin enlarged - Consulted urology. F/u repeat UA. BMP improved with reina althugh K still on higher side
Update 10/22 - Reina exchanged with improvement in symptoms. Repeat UA now that s/p CBI and reina exchanged - with known recent UTI. UA with many rbc to determine wbc yesterday.
More than 30 minutes spent in discharge including
Final examination of the patient
Summarizing hospital stay
Instructions for continuing care to all relevant caregivers
Preparation of discharge records, prescriptions, and referral forms
Total time spent (in minutes): 36
Anticipated Discharge: Today
Subjective/Interval History
-
Date of Service: October 22, 2025
symptoms improved
Objective Data
-
Labs:
Laboratory Results
10/22/25
06:46
WBC 9.2
Hgb 7.6 L
Hct 23.7 L
Plt Count 227
Sodium 135
Potassium 4.9
Chloride 105
Carbon Dioxide 22
BUN 36 H
Creatinine 2.7 H
Glucose 97
Calcium 8.4
Total Bilirubin 0.3
AST 14 L
ALT < 10
Alkaline Phosphatase 93
Vital Signs:
Vital Signs
Temp Pulse Resp BP Pulse Ox
98.7 F 70 12 126/58 98
10/22/25 11:00 10/22/25 11:00 10/22/25 11:00 10/22/25 11:00 10/22/25 11:00
I&O
10/21/25 10/22/25 10/23/25
06:59 06:59 06:59
Intake Total 1919 / 1919
Output Total 2450 / 2450 5025 / 5025
Balance -2450 / -2450 -3105 / -3105
Review of Systems
-
History Source: Patient
All other systems: Not reviewed unless documented
Physical Exam
-
General: Well Developed and No Apparent Distress
HEENT: Normocephalic, Atraumatic and Moist Mucous Membranes
Respiratory: Clear to Auscultation
Cardiac: Regular Rhythm and S1/S2; Negative Murmur, Rub or Gallop
GI: Soft, Nontender, Nondistended and Normal Bowel Sounds; Negative Organomegaly
Rectal: Deferred by Provider
Genito-urinary: Reina
Musculoskeletal: No Clubbing, No Cyanosis and No Edema
Skin: Negative Rash
Neuro: Nonfocal/Grossly Intact
Data Reviewed
-
Labs: Labs Reviewed by me and Discussed with Patient
[2025-10-22] MEDS: NOVOLOG FLEXPEN-LOW RESISTANCE 1 UNITS SC ×2 (12:51→16:47)
--- NOTE | 2025-10-22 13:05 | W.DS.TRANS ---
DC Summary - Aurist
-
Discharge Instructions:
Discharge Diagnosis/Procedures hyperkalemia, urinary obstruction
Diet Low Cholesterol,Low Fat,No added salt
Activity As tolerated
Blood Work bmp in 3-5 days with pcp/nephrology/urology
Instructions:
Stand-Alone Forms:
Changes to Home Medications: No
Discharge Medications:
DC Medications w/original date entered in [employer]
finasteride 5 mg tablet 5 mg PO DAILY BPH #30 tabs 09/27/25
tamsulosin 0.4 mg capsule 0.4 mg PO DAILY BPH #30 caps 09/27/25
Home Medication Changes
na
Pending Results: No
[2025-10-22 13:17] LABS: Urine Character Slightly Cloudy (Clear)
[2025-10-22 14:10] LABS: Urine Red Blood Cell 30-40 /HPF (0-2); Urine White Cell >100 /HPF (0-5)
[2025-10-22] MEDS: FERRLECIT 110 MG IV (14:30)
[2025-10-22 15:00] VITALS: BP 164/75
--- NOTE | 2025-10-22 15:49 | CM ---
F/U: Patient may discharge soon. KADEN Childs read that patient has no insurance and has indwelling Kenny catheter. Spoke to patient, he has a person to call when he gets home re: applying for insurance. Patient has the knowledge to take care of his
Kenny, and plans to see a PCP, but could not as of yet because he has been in the hospital. Patient has seen a Dr. Quinones at one point. Patient is a Citizen, but lives in [facility] for many years.
PLAN: Home No Needs.
[2025-10-22 16:42] LABS: Glucose - Point of Care 187 mg/dl (70-99)
[2025-10-22] MEDS: AMOXIL 500 MG PO ×2 (16:47→23:13)
[2025-10-22 21:43] LABS: Glucose - Point of Care 233 mg/dl (70-99)
[2025-10-22 23:50] VITALS: BP 155/72
--- NOTE | 2025-10-23 08:04 | W.PN.URO.CBU ---
Today's Communication / Plan
-
can be discharge WITH OSORIO when medically stable
Assessment / Plan
-
Renal Insufficiency with critical Hyperkalemia
Obstructive Uropathy due to Bladder outlet Obstruction -- Prostatomegaly or Prostate Cancer [PSA > 60 last month] -- PSA, submitted to lab on 10/19/2025, inexplicably remains 'pending'
Paraphimosis - reduced
Osorio malfunction due to clot obstruction -- remedied by placement of larger catheter
Hematuria - resolved
Diagnosis
-
Date of Service: October 23, 2025
-
Patient Diagnosis:
Renal Insufficiency with critical Hyperkalemia
Obstructive Uropathy due to Bladder outlet Obstruction -- Prostatomegaly or Prostate Cancer [PSA > 60 last month]
Paraphimosis - reduced
Osorio malfunction due to clot obstruction -- remedied by placement of larger catheter
Subjective
-
asleep
Objective
-
Vital Signs
Temp Pulse Resp BP Pulse Ox
98.3 F 71 18 155/72 98
10/22/25 23:50 10/22/25 23:50 10/22/25 23:50 10/22/25 23:50 10/23/25 00:04
Intake and Output
10/22/25 10/23/25 10/24/25
06:59 06:59 06:59
Intake Total 1920 / 1920 240 / 240
Output Total 5025 / 5025 1900 / 1900
Balance -3105 / -3105 -1660 / -1660
Intake:
Oral fluids 1920 / 1920 240 / 240
Output:
Urine, Osorio 2750 / 2750 1250 / 1250
True Urine Output from CBI 2275 / 2275 650 / 650
PSA, submitted to lab on 10/19/2025, inexplicably remains 'pending'
Physical Exam
-
General - asleep
Genitalia - Osorio with scar output
[2025-10-23 08:15] VITALS: BP 154/77
[2025-10-23 08:24] LABS: Glucose - Point of Care 111 mg/dl (70-99)
[2025-10-23] MEDS: AMOXIL 500 MG PO (08:24)
[2025-10-23] MEDS: PROSCAR 5 MG PO (08:24)
[2025-10-23] MEDS: NOVOLOG FLEXPEN-LOW RESISTANCE SC ×2 (08:24→13:30)
[2025-10-23] MEDS: HEPARIN 5000 UNITS SC (08:24)
[2025-10-23] MEDS: FLOMAX 0.4 MG PO (08:24)
[2025-10-23 08:35] LABS: Hematocrit 23.9 % (39.0-52.0); Hemoglobin 7.7 g/dL (13.0-18.0); Mean Corp Hgb Conc. 32.2 g/dL (33.0-37.0); Mean Corpuscular Volume 86.9 fL (80.0-94.0); Platelet Count 212 10^3/uL (130-400); Red Cell Dist. Width 13.3 % (11.5-14.5)
[2025-10-23 09:19] LABS: ALT (SGPT) < 10 U/L (0-50); AST (SGOT) 15 U/L (17-59); Albumin 3.4 g/dl (3.5-5.0); Alkaline Phosphatase 84 U/L (38-126); Blood Urea Nitrogen 40 mg/dl (9-20); Calcium 8.8 mg/dl (8.4-10.2); Carbon Dioxide 23 mmol/L (22-30); Chloride 108 mmol/L (98-107); Estimated Creatinine Clearance 29 ml/min; Glucose 96 mg/dl (70-99); Potassium 5.0 mmol/L (3.5-5.1); Sodium 136 mmol/L (135-145); Total Protein 7.0 g/dl (6.3-8.2); eGFR 25.88
--- NOTE | 2025-10-23 11:09 | W.PN.NEPH.PH ---
Today's Communication / Plan
-
Stable we will sign off
Assessment/Plan
-
Impression
Hyperkalemia
Obstructive uropathy.
CKD stage IV secondary to above-baseline high 2range
mild met acidosis
Enlarged prostate.
Chronic anemia
Plan
A/w hyperkalemia recent bactrim use
Hyperkalemia resolved, off LOkelma
low k diet reviewed wiht pt and no more bactrim
stable renal function cr 2.6
Mild metabolic acidosis resolved
anemia, fe sta only 17%, cont with IV iron course, prn trasnfusion
reina downsized due to pain, improved hematuria-saw
Blood pressure stable
keep Reina catheter
need to follow nephro out pt in his insurance coverage practice
d/w nursing
-
-
Date of Service: October 23, 2025
CC / HPI / ROS
-
Chief Complaint:
CLAU
History of Present Illness:
CLAU/Cr stable at 2.6
[address]
hb no change 7.6
Review of Systems:
No chest pain or shortness of breath
penile discomfort better with downsizing of reina
Labs
-
Labs:
WBC 8.7 10^3/uL (4.8-10.8) 10/23/25 07:47
RBC 2.75 10^6/uL (4.70-6.10) L 10/23/25 07:47
Hgb 7.7 g/dL (13.0-18.0) L 10/23/25 07:47
Hct 23.9 % (39.0-52.0) L 10/23/25 07:47
Plt Count 212 10^3/uL (130-400) 10/23/25 07:47
Sodium 136 mmol/L (135-145) 10/23/25 07:47
Potassium 5.0 mmol/L (3.5-5.1) 10/23/25 07:47
Chloride 108 mmol/L (98-107) H 10/23/25 07:47
Carbon Dioxide 23 mmol/L (22-30) 10/23/25 07:47
BUN 40 mg/dl (9-20) H 10/23/25 07:47
Creatinine 2.6 mg/dL (0.7-1.3) H 10/23/25 07:47
eGFR 25.88 10/23/25 07:47
Glucose 96 mg/dl (70-99) 10/23/25 07:47
Calcium 8.8 mg/dl (8.4-10.2) 10/23/25 07:47
Albumin 3.4 g/dl (3.5-5.0) L 10/23/25 07:47
Physical Exam
-
Vital Signs:
Vital Signs
Temp Pulse Resp BP Pulse Ox
98.4 F 70 16 154/77 98
10/23/25 08:15 10/23/25 08:15 10/23/25 08:15 10/23/25 08:15 10/23/25 08:30
Cardiovascular:: Regular rate and rhythm
Respiratory:: Bilateral: CTA
Lung Excursion:: Normal
Abdomen:: Nontender and Soft
Extremity Edema:: None: Bilateral:
Reina Catheter: Yes
--- NOTE | 2025-10-23 11:25 | CM ---
Addendum entered by Noemí Pak 10/23/25 16:03:
Pt has a friend that is coming to take him home.
Addendum entered by Noemí Pak 10/23/25 13:12:
Pt is discharged. Transportation not established yet.
Original Note:
Chart reviewed. Met with patient chairside. Pt is self-care with his reina cath. K+ is 5.3. Possible DC today.
Plan: Home, no needs
[2025-10-23 12:17] LABS: Glucose - Point of Care 483 mg/dl (70-99)
[2025-10-23 13:14] LABS: Glucose 151 mg/dl (70-99)
[2025-10-23 15:42] VITALS: BP 167/74
== END 2025-10-23 17:02 | disposition home or self-care (01) | DRG 699 ==
LOC: 4 EAST ACU 01:22
PROVIDERS: Emergency Medicine; Internal Medicine; Physician Assistant; ADMITTING PHYSICIAN Internal Medicine; ATTENDING PHYSICIAN Internal Medicine; CONSULT PHYSICIAN Specialist; EMERGENCY PHYSICIAN Student in an Organized Health Care Education/Training Program; OTHER PHYSICIAN Internal Medicine
DX: T83.098A Other mechanical complication of other urinary catheter, initial encounter (principal); E87.20 Acidosis, unspecified; N13.8 Other obstructive and reflux uropathy; N18.4 Chronic kidney disease, stage 4 (severe); E87.5 Hyperkalemia; N40.1 Benign prostatic hyperplasia with lower urinary tract symptoms; D50.9 Iron deficiency anemia, unspecified; E11.22 Type 2 diabetes mellitus with diabetic chronic kidney disease; Z87.440 Personal history of urinary (tract) infections; I12.9 Hypertensive chronic kidney disease with stage 1 through stage 4 chronic kidney disease, or unspecified chronic kidney disease; Z91.013 Allergy to seafood; Y73.1 Therapeutic (nonsurgical) and rehabilitative gastroenterology and urology devices associated with adverse incidents
CPT/HCPCS: 80048; 80053; 81003; 81015; 82728; 82947; 82962; 83036; 83540; 83550; 83735; 84132; 85025; 85027; 86850; 86900; 86901; 87077; 87086; 87186; 93005; 94640; 96374; 96375; 99284; J2916

== ENCOUNTER 2025-11-09 14:09 | Inpatient (IN) | payer OTHER, SELFPAY ==
[2025-11-09] VITALS (9 sets, daily range): BP systolic 153–212; BP diastolic 66–96; BMI 31.0
--- NOTE | 2025-11-09 11:54 | ED.GENMED ---
History of Present Illness
General
Chief Complaint: Catheter/Tube Problem
Source: patient and records
Exam Limitations: none
Time Seen by Provider: 11/09/25 11:41
Nursing documentation reviewed up to this point in time: agreed with
History of Present Illness
History of Present Illness:
70-year-old male obstructive uropathy diagnosed a month and a half ago seen by Dr. Quinones, and Lucille--- has a chronic Kenny catheter since then, is having some leaking around it, no fevers no headache no nausea no vomiting feels like his
bladder is full, scheduled to have a pelvic MRI in the coming weeks
Past History
Past History
ED Past Medical History: HTN, NIDDM and Other (CKD)
ED Past Surgical History: None
Social History
Tobacco: Non-smoker
Alcohol: None
Drug: None
Living: with family
Employment: Retired
Review of Systems
Review of Systems
All Other Systems: Not applicable
Constitutional: Denies fever or fatigue
EENT: Reports no symptoms
Respiratory: Reports no symptoms
ABD/GI: Reports abdominal pain
: Reports incontinence and difficulty voiding
Musculoskeletal: Reports no symptoms
Phy Exam
Physical Exam
Physical Exam:
Physical Exam
General: no apparent distress, not acutely ill
Neck: No jaundice
Heart: s1/s2 regular rate and rhythm, no murmur. equal radial pulses.
Lungs: no acute respiratory distress. clear bilaterally
Abdomen: Soft minimal suprapubic tenderness catheter draining yellow urine
Neuro: alert and oriented. no focal neurological deficits
Skin: no rash
Psychiatric: well kept. interactive and cooperative
Extremities: no edema.
Course
Orders/Labs/Results
Orders:
Orders
11/09/25 12:14
Kenny Placement- Treatment ONCE
Reason for insertion: Outlet obstruction
11/09/25 12:40
Complete Blood Count/With Diff Urgent
Comprehensive Metabolic Panel Urgent
Urinalysis Reflex To Culture Urgent
Date Specimen was Collected: 11/09/25
Time Specimen was Collected: 12:33
Urine Microscopic Reflex Cult Urgent
Urine Culture Urgent
ANITA Source: U
Specimen Description:
Date Specimen was Collected: 11/09/25
Time Specimen was Collected: 12:33
11/09/25 13:20
0.9% Sodium Chloride 1000 ml [Nss] 2,000 ml IV BOLUS
11/09/25 13:22
Electrocardiogram (*1) Urgent
Reason for Study: Abnormal EKG
EKG- Treatment ONCE
11/09/25 13:25
Cardiac Monitoring- Treatment ONCE
Calcium Gluconate 1,000 mg IV NOW STA
Dextrose 50%-Water [Dextrose 50% Syringe] 12.5 grams IV [id number] PRN
Dextrose 50%-Water [Dextrose 50% Syringe] 25 grams IV NOW STA
Insulin Human Regular [Novolin R] 5 units IV NOW STA
Sodium Bicarbonate 50 meq IV NOW STA
11/09/25 13:26
Bedside Glucose PRE IV Insulin- HyperK+ NOW
11/09/25 13:52
UROLOGY CONSULT Routine
Consulting Provider: Jimbo Chew Jr.
Was physician already notified: Yes
11/09/25 13:53
NEPHROLOGY CONSULT Urgent
Consulting Provider: Dano Hernandez
Was physician already notified: Yes
11/09/25 13:54
Admit/Transfer Patient As Directed
Co-Sign Provider:
Level of Care: Inpatient admission
Assign to:: Telemetry
Physician / Group: andrea gordillo
Diagnosis: Obstructive uropathy, suspect UTI, hyperkalemia, metabolic acidosis
Reason for Telemetry: Arrhythmia
Date to Stop Telemetry: 11/12/25
Time to Stop Telemetry: 11:00
Reason for Hospitalization: Obstructive uropathy, suspect UTI, hyperkalemia, metabolic acidosis
Expected length of stay greater than two midnights?: Yes
ELOS- Estimated Length of Stay in days: 3
I certify the patient meets the requirements for IP care: Yes
PRN Pain Medication Management As Directed
May give lesser potent ordered pain med per pt: Yes
preference::
Protocol:: Medication orders for pain may be administered in a
manner that supports deferring to patient preference
when the pt is:
- Requesting an ordered lesser potent pain medication.
Least to most potent pain medications are defined
as: acetaminophen < NSAID < tramadol < opioids
(morphine, oxycodone, hydromorphone).
- Requesting a lesser dose of the same medication IF
ORDERED.
- Requesting a less intrusive route of administration
if both routes are prescribed by the provider (PO <
IV).
11/09/25 13:55
Code Status As Directed
Resuscitation Status: Full Code
11/09/25 14:00
Sodium Zirconium Cyclosilicate [Lokelma] 10 gram PO TID@0600,1400,1800
11/09/25 14:56
Bedside Glucose POST IV Insulin- HyperK+ Q1HX2,Q2HX2
11/09/25 15:56
Potassium Urgent
Comment: draw 2 hours after regular insulin IV administration
11/09/25 20:00
BMP [Basic Metabolic Panel] Routine
11/12/25 11:00
DC Protocol for Telemetry ONCE
Abnormal Lab Results
11/09/25 11/09/25
12:40 13:44
RBC 2.98 L 10^6/uL
(4.70-6.10)
Hgb 8.3 L g/dL
(13.0-18.0)
Hct 25.1 L %
(39.0-52.0)
Absolute Neuts (auto) 7.5 H 10^3/uL
(1.4-6.5)
Absolute Lymphs (auto) 0.6 L 10^3/uL
(1.2-3.4)
Absolute Monos (auto) 0.9 H 10^3/uL
(0.1-0.6)
Neutrophils % 83.4 H %
(42.2-75.2)
Lymphocytes % 6.3 L %
(20.5-51.1)
Monocytes % 9.7 H %
(1.7-9.3)
Sodium 133 L mmol/L
(135-145)
Potassium 6.4 H* mmol/L
(3.5-5.1)
Chloride 109 H mmol/L
(98-107)
Carbon Dioxide 12 L* mmol/L
(22-30)
BUN 48 H mg/dl
(9-20)
Creatinine 2.9 H mg/dL
(0.7-1.3)
Glucose 299 H mg/dl
(70-99)
Ur Occult Blood Reflex 4+ A
(Negative)
Urine Nitrite (Reflex) Positive A
(Negative)
Leukocyte Esterase Rfl 3+ A
(Negative)
Urine RBC 60-70 A /HPF
(0-2)
Urine WBC (Reflex) >100 A /HPF
(0-5)
Urine Bacteria (Reflex) Moderate A
(Negative)
Urine Albumin (Reflex) 3+ A
(Neg - Trace)
POC Glucose 289 H mg/dl
(70-99)
11/09/25 12:40
11/09/25 12:40
Vital Signs
Initial and Last Documented VS:
Initial Vital Signs
Temp Pulse Resp BP Pulse Ox
98.6 F 103 18 212/96 98
11/09/25 11:34 11/09/25 11:34 11/09/25 11:34 11/09/25 11:34 11/09/25 11:34
Last Documented Vital Signs
Temp Pulse Resp BP Pulse Ox
100.2 F 95 18 164/73 97
11/09/25 13:23 11/09/25 13:23 11/09/25 13:23 11/09/25 13:23 11/09/25 13:23
MDM/Problems Addressed
Differential Diagnosis Includes:
Clotted Kenny, placed Kenny,
Chronic conditions affecting care: Kidney disease
Acute Exacerbation and/or Progression of Chronic Illness: Kidney disease
*Pulse Oximetry
SaO2: 98
Oxygen Mode of Delivery: Room air
Patient hypoxic: no
*Critical Care Note
Total Time (30-74mins, 75-104mins- exclusive of procedures): 12
Update Note
Update Note:
Will ask RN to flush the catheter, if unsuccessful will replace
12:15 PM nurse having trouble flushing, bladder scan about 2 L, will ask him to replace also due to his history we will check labs
1:25 PM labs noted hyperkalemia metabolic acidosis, will replete 2 L of normal saline, urinalysis was cloudy suspect is infected at her urine urine culture check EKG low threshold to admit
ED Attending Note
-
Portions of this chart may have been created with voice recognition software.� Occasional wrong word or��sound alike� substitutions may have occurred due to the inherent limitations of voice recognition software.
Discharge Plan
Departure
Patient Disposition: Admit
Date of Disposition: 11/09/25
Time of Disposition: 13:24
Admit to: Telemetry
Presentation/result/management discussed w/ accepting MD/DO: Hospitalist
Patient with high blood pressure during this ER visit?: Yes
Condition: Fair
Discharge Problem:
Hyperkalemia, Chronic kidney disease, stage 4 (severe), Acute hyperkalemia, Obstructive and reflux uropathy, unspecified, Metabolic acidosis
Interventions
Interventions:
*General Assessment Last Done: 11/09/25 11:34
*Neglect/Abuse Screening Last Done: 11/09/25 11:34
AZ-Oubmzx-Saftgqbzgc Assessment Last Done: 11/09/25 12:54
ED-Male Genitourinary Assessment Last Done: 11/09/25 12:54
[2025-11-09 12:51] LABS: Hematocrit 25.1 % (39.0-52.0); Hemoglobin 8.3 g/dL (13.0-18.0); Mean Corp Hgb Conc. 33.1 g/dL (33.0-37.0); Mean Corpuscular Volume 84.2 fL (80.0-94.0); Nucleated Red Blood Cells % 0.2 % (-); Platelet Count 260 10^3/uL (130-400); Red Cell Dist. Width 13.8 % (11.5-14.5)
[2025-11-09 13:18] LABS: ALT (SGPT) 10 U/L (0-50); AST (SGOT) 18 U/L (17-59); Albumin 3.8 g/dl (3.5-5.0); Alkaline Phosphatase 87 U/L (38-126); Blood Urea Nitrogen 48 mg/dl (9-20); Calcium 8.5 mg/dl (8.4-10.2); Carbon Dioxide 12 mmol/L (22-30); Chloride 109 mmol/L (98-107); Glucose 299 mg/dl (70-99); Potassium 6.4 mmol/L (3.5-5.1); Sodium 133 mmol/L (135-145); Total Protein 7.5 g/dl (6.3-8.2); eGFR 22.71
[2025-11-09] MEDS: NSS 2000 IV (13:25)
[2025-11-09 13:36] LABS: Urine Character Cloudy (Clear)
[2025-11-09] MEDS: NOVOLIN R 5 UNITS IV (13:45)
[2025-11-09] MEDS: CALCIUM GLUCONATE 1000 MG IV (13:45)
[2025-11-09] MEDS: SODIUM BICARBONATE 50 MEQ IV (13:45)
[2025-11-09] MEDS: DEXTROSE 50% SYRINGE 25 GRAMS IV (13:45)
[2025-11-09 13:46] LABS: Glucose - Point of Care 289 mg/dl (70-99)
[2025-11-09 14:16] LABS: Urine Squamous Cell 0-2 /LPF (Few)
--- NOTE | 2025-11-09 14:16 | HPS.HSE ---
Family Physician
-
Family Physician: NOT KNOW UNKNOWN - PT DOES
Chief Complaint
-
Clogged Kenny
History of Present Illness
70-year-old male with past medical history of hypertension, tju-ywalbgr-itlzqwbjt obese mellitus, CKD, BPH, indwelling Kenny catheter came to the hospital with clogged catheter. Per ER staff, there was some pus during catheter drainage. Urine is
cloudy as well. Patient denies any fever/chills. Denies any nausea, vomiting, diarrhea, constipation. Potassium 6.4 in the ED. Patient does have some abdominal distention.
Medical History
Past Medical History
Past Medical History: Reports HTN, NIDDM and Other (BPH with Kenny catheter, CKD stage IV)
Past Surgical History: Reports None
Social History
Tobacco: Non-smoker
Alcohol: None
Family History
Family History: Not pertinent
Allergies / Home Medications
Allergies reflects when Allergies were last updated in [employer].
Home Medications with original date entered in [employer]
Allergy/Medication List:
Allergies
Allergy/AdvReac Type Severity Reaction Status Date / Time
shellfish derived Allergy Itching Verified 10/04/25 11:15
Home Medications
finasteride 5 mg tablet 5 mg PO DAILY BPH #30 tabs 09/27/25
tamsulosin 0.4 mg capsule 0.4 mg PO DAILY BPH #30 caps 09/27/25
Review of Systems
-
History Source: Patient
A 12 point ROS was completed and negative except as noted: Yes
: Reports Difficulty Voiding and Kenny
Physical Exam
Vital Signs
Vital Signs
Temp Pulse Resp BP Pulse Ox
100.2 F 95 18 164/73 97
11/09/25 13:23 11/09/25 13:23 11/09/25 13:23 11/09/25 13:23 11/09/25 13:23
Physical Exam
General: No Apparent Distress and Comfortable
HEENT: Moist mucous membranes and Atraumatic
Respiratory: Clear and Non Labored Respirations; No Wheezes
Cardiac: S1/S2 and Regular Rhythm
Breast: Deferred by me
GI: Soft, Non Tender and Non Distended
Rectal: Deferred by Provider
Genito-urinary: Kenny (Cloudy urine)
Musculoskeletal: No Edema
Neuro: Awake, Alert, Oriented and AO x 3
Psych: Calm and Intact Judgment/Insight
Laboratory Results
-
11/09/25 12:40
Laboratory Results
Total Bilirubin 0.5 mg/dl (0.2-1.3) 11/09/25 12:40
AST 18 U/L (17-59) 11/09/25 12:40
ALT 10 U/L (0-50) 11/09/25 12:40
Alkaline Phosphatase 87 U/L (38-126) 11/09/25 12:40
Data Reviewed
-
Lab Data: Labs Reviewed by me, Discussed with Physician and Discussed with Patient
Impression/Plan
-
Obstructive uropathy
Kenny exchanged in the ED, urine looks cloudy
Urology evaluation
Monitor urine output
Continue with fluids
Check CT abdomen/pelvis
History of CKD 4
Creatinine not much of from his baseline, will monitor with fluids
Hyperkalemia with metabolic acidosis likely secondary to obstructive uropathy
Will monitor with new Kenny catheter now that it is draining
Life-threatening hyperkalemia, temporizing measure, Lokelma. Insulin and bicarb given in the ED
History of BPH with obstructive uropathy
Continue finasteride, tamsulosin
Monitor
Suspect urinary tract infection given cloudy urine likely catheter related
History of Enterococcus, was not given p.o. antibiotics on discharge last time
Given his cloudy urine and symptoms, will start vancomycin at this time pending culture
Lxk-quygtif-jyvhhjgvm diabetes mellitus
Patient denies taking any medication
Recent A1c 6.8
Insulin sliding scale, Accu-Cheks
Chronic normocytic anemia likely secondary to CKD
Monitor
Full code
DVT prophylaxis
SCDs, start pharmacologic prophylaxis when okay with urology
I spent a total of 78 minutes with the patient or on the floor. More than 50% of this time involved counseling and coordination of care.
[2025-11-09 14:17] LABS: Urine Red Blood Cell 60-70 /HPF (0-2); Urine White Cell >100 /HPF (0-5)
[2025-11-09] MEDS: LOKELMA 10 GRAM PO ×2 (14:19→18:04)
--- NOTE | 2025-11-09 14:37 | PHA.VAN.IN ---
Assessment
- Assessment
Renal Function: Appears similar to baseline (CKD stage IV)
AUC Dosing Plan
- Empiric Dosing
Initial / Loading Dose: 2000 mg IV x 1
- Monitoring
Levels to be Drawn after Dose #: 1 (11/10 with am labs)
Pharmacokinetics Vancomycin I
- -
Patient Age: 70
Patient Sex: Male
Vancomycin Day #: 1
Indication: Genito-Urinary Tract
Requesting Provider: Reese Mendoza
Height / Weight:
Height 6 ft
Actual Weight 103.6 kg
Pertinent Past Medical History: DM, indwelling Kenny catheter, CKD stage IV, recent UTI enterococcus
- Vital Signs / Lab Results
Temp Pulse Resp BP Pulse Ox
100.2 F 95 18 164/73 97
11/09/25 13:23 11/09/25 13:23 11/09/25 13:23 11/09/25 13:23 11/09/25 13:23
Lab Results - Hematology
11/09/25
12:40
WBC 9.0
Lab Results - Chemistry
11/09/25
12:40
BUN 48 H
Creatinine 2.9 H
Albumin 3.8
Lab Results - Urine
11/09/25
12:40
Urine Nitrite (Reflex) Positive A
Leukocyte Esterase Rfl 3+ A
Urine WBC (Reflex) >100 A
Ur Squamous Epith Cells 0-2
Urine Bacteria (Reflex) Moderate A
--- NOTE | 2025-11-09 15:30 | CON.MD ---
Consultation - Medical
-
see dictated note
pt with retention/hydro/ARF and elevated psa- first presented in nov
reina dependent since- but has had trouble with cath obstruction
awaiting MRI to decide next step as pt's psa is sig elevated
presented with reina not draining for 12 hrs- replaced- 2000cc of cloudy urine drained
cr at his quang/ K elevated
plan
reina
check ucx
hydration
trend cr and K
eventual plan for discharge with cath an continuation of outpt management with dr nascimento
hold blood thinners for now as high rsik for hematuria
Consultation
-
Date/Time Consultation Requested: 11/09/25 at 2pm
Date/Time Consultation Performed: 11/09/25 at 2:30pm
Requesting Provider: Dr Mendoza
Performing Provider: Dr Chew
Reason for Consultation: Retention
[2025-11-09 15:36] LABS: Glucose - Point of Care 208 mg/dl (70-99)
[2025-11-09 16:00] LABS: Glucose - Point of Care 210 mg/dl (70-99)
[2025-11-09] MEDS: NSS 1000 IV (16:28)
[2025-11-09] MEDS: VANCOCIN 540 MG IV (16:28)
[2025-11-09 16:31] LABS: Potassium 5.5 mmol/L (3.5-5.1)
[2025-11-09 16:51] LABS: Glucose - Point of Care 177 mg/dl (70-99)
[2025-11-09 18:09] LABS: Glucose - Point of Care 157 mg/dl (70-99)
[2025-11-09] MEDS: NOVOLOG FLEXPEN-LOW RESISTANCE 1 UNITS SC (18:10)
[2025-11-09 20:21] LABS: Glucose - Point of Care 232 mg/dl (70-99)
[2025-11-09 20:55] LABS: Blood Urea Nitrogen 44 mg/dl (9-20); Calcium 8.5 mg/dl (8.4-10.2); Carbon Dioxide 15 mmol/L (22-30); Chloride 110 mmol/L (98-107); Estimated Creatinine Clearance 29 ml/min; Glucose 209 mg/dl (70-99); Potassium 4.9 mmol/L (3.5-5.1); Sodium 133 mmol/L (135-145); eGFR 25.88
[2025-11-09 21:24] LABS: Glucose - Point of Care 235 mg/dl (70-99)
[2025-11-10 03:42] VITALS: BP 155/68
[2025-11-10] MEDS: NSS 1000 IV ×2 (04:02→13:26)
[2025-11-10] MEDS: LOKELMA 10 GRAM PO ×3 (06:30→18:00)
[2025-11-10 07:23] VITALS: BP 131/62
[2025-11-10] MEDS: NOVOLOG FLEXPEN-LOW RESISTANCE SC (07:54)
[2025-11-10 07:55] LABS: Glucose - Point of Care 132 mg/dl (70-99)
--- NOTE | 2025-11-10 08:14 | W.PN.URO.CBU ---
Today's Communication / Plan
-
contiue reina
Assessment / Plan
-
BPH with obstruction/hydro
renal insuff
elevated psa
cath malfunction
pt quickly improved with cath replaced- again reviewed care instructions
trend cr
follow up ucx
discharge when stable with outpt f/u with dr nascimento
Diagnosis
-
Date of Service: November 10, 2025
-
Patient Diagnosis:
bph with obstruction
acute on chronic renal insufficiency
UTI
Subjective
-
pt feels much better
urine clear
K normalized- cr returning to his outpt value
cx pending
Objective
-
Vital Signs
Temp Pulse Resp BP Pulse Ox
98.2 F 85 18 155/68 98
11/10/25 03:42 11/10/25 03:42 11/10/25 03:42 11/10/25 03:42 11/10/25 03:42
Intake and Output
11/09/25 11/10/25 11/11/25
06:59 06:59 06:59
Intake Total 960 / 960
Output Total 3800 / 3800 1300 / 1300
Balance -3800 / -3800 -340 / -340
Intake:
Oral fluids 960 / 960
Output:
Urine, Reina 3450 / 3450 1300 / 1300
Urine, Voided 350 / 350
Review of Systems
-
Constitutional: Fatigue
Respiratory: No Symptoms
Cardiac: No Symptoms
Abdomen/GI: No Symptoms
Physical Exam
-
General - no acute distress
Abdomen - soft, non-tender
Genitalia - reina in place
[2025-11-10] MEDS: FLOMAX 0.4 MG PO (08:44)
[2025-11-10] MEDS: PROSCAR 5 MG PO (08:44)
[2025-11-10 08:52] LABS: Blood Urea Nitrogen 41 mg/dl (9-20); Calcium 8.5 mg/dl (8.4-10.2); Carbon Dioxide 17 mmol/L (22-30); Chloride 112 mmol/L (98-107); Estimated Creatinine Clearance 29 ml/min; Glucose 124 mg/dl (70-99); Potassium 4.6 mmol/L (3.5-5.1); Sodium 135 mmol/L (135-145); eGFR 25.88
[2025-11-10 09:46] LABS: Hematocrit 21.2 % (39.0-52.0); Hemoglobin 6.7 g/dL (13.0-18.0); Mean Corp Hgb Conc. 31.6 g/dL (33.0-37.0); Mean Corpuscular Volume 85.1 fL (80.0-94.0); Nucleated Red Blood Cells % 0 % (-); Platelet Count 208 10^3/uL (130-400); Red Cell Dist. Width 14.0 % (11.5-14.5)
[2025-11-10 09:53] LABS: Blood Urea Nitrogen 40 mg/dl (9-20); Calcium 8.3 mg/dl (8.4-10.2); Carbon Dioxide 17 mmol/L (22-30); Chloride 110 mmol/L (98-107); Estimated Creatinine Clearance 29 ml/min; Glucose 115 mg/dl (70-99); Potassium 4.4 mmol/L (3.5-5.1); Sodium 134 mmol/L (135-145); eGFR 25.88
--- NOTE | 2025-11-10 10:08 | PHA.VAN.FU ---
Vancomycin Assessment / Plan
- Assessment
Renal Function: Stable (2.6)
WBC's are: WNL
In the past 24 hrs, patient has been: Afebrile
- Assessment - Therapeutic Drug Monitoring
Random Level: 11.6 taken approx. 15 hours after LD
- Dosing Plan
Dosing by Level: Re-dose today (vancomycin 1250 mg x 1)
- Monitoring Plan
Random Level: 12.27 @0600
- Follow Up
Pharmacy will continue to follow.
Vancomycin Follow UP
- -
Patient Age: 70
Patient Sex: Male
Vancomycin Day #: 2
Indication: Genito-Urinary Tract
Requesting Provider: Reese Mendoza
Height / Weight:
Height 6 ft
Actual Weight 100.357 kg
Pertinent Past Medical History: DM, indwelling Kenny catheter, CKD stage IV, recent UTI enterococcus
- Vital Signs / Lab Results
Temp Pulse Resp BP Pulse Ox
98.5 F 74 18 131/62 100
11/10/25 07:23 11/10/25 07:23 11/10/25 07:23 11/10/25 07:23 11/10/25 07:23
Lab Results - Hematology
11/09/25 11/10/25 11/10/25
12:40 07:24 09:10
WBC 9.0 Cancelled 10.1
Lab Results - Chemistry
11/09/25 11/09/25 11/10/25
12:40 20:25 07:24
BUN 48 H 44 H 41 H
Creatinine 2.9 H 2.6 H 2.6 H
Estimated Creat Clear 29 29
Albumin 3.8
11/10/25
09:10
BUN 40 H
Creatinine 2.6 H
Estimated Creat Clear 29
Albumin
Lab Results - Urine
11/09/25
12:40
Urine Nitrite (Reflex) Positive A
Leukocyte Esterase Rfl 3+ A
Ur Squamous Epith Cells 0-2
Therapeutic Drug Monitoring
Random Vancomycin 11.6 ug/ml 11/10/25 07:24
[2025-11-10 10:35] LABS: Hematocrit 21.0 % (39.0-52.0); Hemoglobin 6.7 g/dL (13.0-18.0); Mean Corp Hgb Conc. 31.9 g/dL (33.0-37.0); Mean Corpuscular Volume 85.7 fL (80.0-94.0); Platelet Count 206 10^3/uL (130-400); Red Cell Dist. Width 14.0 % (11.5-14.5)
[2025-11-10 11:10] VITALS: BP 150/61
[2025-11-10 11:48] LABS: Glucose - Point of Care 186 mg/dl (70-99)
[2025-11-10] MEDS: NOVOLOG FLEXPEN-LOW RESISTANCE 1 UNITS SC ×2 (13:24→18:00)
[2025-11-10] MEDS: VANCOCIN 275 MG IV (13:25)
--- NOTE | 2025-11-10 13:35 | W.CON.NEPH ---
Consultation
-
Date/Time Consultation Requested: November 09, 2025 at 5:00 p.m.
Date/Time Consultation Performed: November 10, 2025 at 11:00 a.m.
Requesting Provider: Reese Mendoza
Performing Provider: Dr. Hernandez
Reason for Consultation: hyperkalemia
Medical History
-
Chief Complaint: acute kidney injury hyperkalemia
History of Present Illness:
70-year-old male with past medical history of hypertension, cvh-ovxndbr-qsimsfray obese mellitus, CKD, BPH, indwelling Kenny catheter came to the hospital with clogged catheter. Per ER staff, there was some pus during catheter drainage. Urine is
cloudy as well. Patient denies any fever/chills. Denies any nausea, vomiting, diarrhea, constipation. Potassium 6.4 in the ED. Patient does have some abdominal distention.
renal consult for hyperkalemia acute on chronic kidney disease. Kenny catheter exchanged with 3 L out
Past Medical History
Diet-controlled diabetes, obstructive uropathy secondary to BPH, bilateral pyelonephritis/cystitis, chronic anemia
Social History
Tobacco: Non-Smoker
Alcohol: None
Living: Other ( lives with a friend)
Family History
Family History: Not Pertinent
Allergies / Home Medications
Allergy/AdvReac Type Severity Reaction Status Date / Time
shellfish derived Allergy Itching Verified 10/04/25 11:15
�Medication �Instructions �Recorded �Confirmed �Type
finasteride 5 mg tablet 5 mg PO DAILY BPH #30 tabs 09/27/25 11/09/25 Rx
tamsulosin 0.4 mg capsule 0.4 mg PO DAILY BPH #30 caps 09/27/25 11/09/25 Rx
Review of Systems
-
no chest pain or shortness of breath no abdominal pain
All other systems: Negative unless noted
Physical Exam
Vital Signs
Vital Signs
Temp Pulse Resp BP Pulse Ox
98.3 F 78 18 150/61 97
11/10/25 11:10 11/10/25 11:10 11/10/25 11:10 11/10/25 11:10 11/10/25 11:10
Lab Results
WBC 10.7 10^3/uL (4.8-10.8) 11/10/25 10:09
RBC 2.45 10^6/uL (4.70-6.10) L 11/10/25 10:09
Hgb 6.7 g/dL (13.0-18.0) L* 11/10/25 10:09
Hct 21.0 % (39.0-52.0) L 11/10/25 10:09
Plt Count 206 10^3/uL (130-400) 11/10/25 10:09
Sodium 134 mmol/L (135-145) L 11/10/25 09:10
Potassium 4.4 mmol/L (3.5-5.1) 11/10/25 09:10
Chloride 110 mmol/L (98-107) H 11/10/25 09:10
Carbon Dioxide 17 mmol/L (22-30) L 11/10/25 09:10
BUN 40 mg/dl (9-20) H 11/10/25 09:10
Creatinine 2.6 mg/dL (0.7-1.3) H 11/10/25 09:10
eGFR 25.88 11/10/25 09:10
Glucose 115 mg/dl (70-99) H 11/10/25 09:10
Calcium 8.3 mg/dl (8.4-10.2) L 11/10/25 09:10
Albumin 3.8 g/dl (3.5-5.0) 11/09/25 12:40
Physical Exam
General no acute distress
HEENT no cephalic atraumatic extraocular muscle intact no scleral icterus no JVD neck supple
lungs clear to auscultation bilateral
heart regular S1-S2 positive
abdomen soft nontender positive bowel sounds
extremities no edema pulses present bilateral
Neurologically nonfocal alert and oriented x 3
Skin no lesions no abrasions no petechiae
Psych normal affect no bizarre behavior
Data Reviewed
-
CT Scan: Image Personally Visualized and interpreted
Assessment/Plan
-
Impression
Hyperkalemia
Obstructive uropathy.
CKD stage IV secondary to above-baseline high 2range
mild met acidosis
Enlarged prostate.
Chronic anemia
Plan
and potassium improved after obstruction resolved
Gram-negative urine culture. Blood cultures pending
creatinine at baseline
need to follow nephro
discussed with him about the transfusion as his hemoglobin is 6.7
iron saturation last admission was 17 he did get IV iron.
I will recheck that
I will give her subcu epo
[2025-11-10 14:51] VITALS: BP 150/61
--- NOTE | 2025-11-10 15:02 | W.PN.HOSP.TC ---
Today's Communication/Plan
-
Assessment / Plan
Assessment / Plan
Obstructive uropathy
Kenny exchange
CLAU improving
Continue IV fluids
Hyperkalemia
Resolved
CLAU
Resolved
Nephrology was consulted
Anemia, normocytic hemoglobin less than 7, no evidence of acute bleeding, chronic likely related to renal disease
Previously on iron infusions
Will give 1 unit PRBC, has consented is agreeable
Enterococcus UTI
IV vancomycin
Urine culture pending
Jyb-whwxxsl-tnnunafze diabetes
Sliding scale
Accu-Chek
Anticipated Discharge: 24 - 48 hours
Subjective/Interval History
-
Date of Service: November 10, 2025
Seen and examined. No new complaints. No acute overnight events.
No evidence of bleeding
Kenny catheter with yellow urine
No with hemoptysis, hematochezia, melanotic stools, epistaxis
Objective Data
-
Labs:
Laboratory Results
11/10/25 11/10/25 11/10/25
07:24 09:10 10:09
WBC Cancelled 10.1 10.7
Hgb Cancelled 6.7 L* 6.7 L*
Hct Cancelled 21.2 L 21.0 L
Plt Count Cancelled 208 206
Sodium 135 134 L
Potassium 4.6 4.4
Chloride 112 H 110 H
Carbon Dioxide 17 L 17 L
BUN 41 H 40 H
Creatinine 2.6 H 2.6 H
Glucose 124 H 115 H
Calcium 8.5 8.3 L
Vital Signs:
Vital Signs
Temp Pulse Resp BP Pulse Ox
98.5 F 76 18 150/61 98
11/10/25 14:51 11/10/25 14:51 11/10/25 14:51 11/10/25 14:51 11/10/25 14:51
I&O
11/09/25 11/10/25 11/11/25
06:59 06:59 06:59
Intake Total 960 / 960
Output Total 3800 / 3800 1300 / 1300
Balance -3800 / -3800 -340 / -340
Physical Exam
-
General: No Apparent Distress and Comfortable
HEENT: Normocephalic, Atraumatic, Moist Mucous Membranes and Anicteric
Respiratory: Clear to Auscultation
Cardiac: Regular Rhythm
GI: Soft, Nontender and Nondistended
Genito-urinary: Kenny
Musculoskeletal: No Clubbing, No Cyanosis and No Edema
Neuro: Awake and AO x 3
--- NOTE | 2025-11-10 16:02 | CM ---
CM met with patient at bedside. IA completed. He is being treated for obstructive uropathy, anemia. Patient lives with friends in a 2 story house with 1st floor set up, 2STE. He reports that he was visiting from [place] then became ill. Prior to
hospitalization he was independent with ambulation and ADLs. He had reina catheter at home. He currently has no insurance. He met with [facility] rep this am. He denies any difficulty in getting reina supplies and medications. he plans to return home
upon discharge.
PCP: none
Pharmacy:[facility]
[2025-11-10] MEDS: RETACRIT 10000 UNITS SC (16:17)
[2025-11-10 16:25] LABS: Glucose - Point of Care 192 mg/dl (70-99)
[2025-11-10 19:40] VITALS: BP 153/116
[2025-11-10 20:48] LABS: Glucose - Point of Care 193 mg/dl (70-99)
--- NOTE | 2025-11-10 22:08 | PTCARENOTE ---
Morning CBCs were 6.7 and 6.8. Patient is asymptomatic. Per dayshift RN, Doctor consented the patient to blood products; however, the patient wanted to try IV iron. Patient was given epoetin on dayshift. Per dayshift RN, Dr Monroe wanted repeat CBC
in morning. No blood products were ordered on dayshift. RN made [employer]IST aware of situation. There was no order for morning CBC, order placed by Nathalia ALLAN.
[2025-11-10 23:52] VITALS: BP 171/76
[2025-11-11] VITALS (10 sets, daily range): BP systolic 132–175; BP diastolic 60–79; BMI 31.3
[2025-11-11] MEDS: NSS IV (00:21)
[2025-11-11] MEDS: NSS 1000 IV ×2 (01:34→13:40)
[2025-11-11] MEDS: LOKELMA PO ×2 (06:03→07:16)
[2025-11-11 07:34] LABS: Hematocrit 21.7 % (39.0-52.0); Hemoglobin 7.0 g/dL (13.0-18.0); Mean Corp Hgb Conc. 32.3 g/dL (33.0-37.0); Mean Corpuscular Volume 84.4 fL (80.0-94.0); Platelet Count 210 10^3/uL (130-400); Red Cell Dist. Width 13.9 % (11.5-14.5)
[2025-11-11] MEDS: PROSCAR 5 MG PO (07:52)
[2025-11-11] MEDS: FLOMAX 0.4 MG PO (07:52)
[2025-11-11 08:02] LABS: Glucose - Point of Care 119 mg/dl (70-99)
[2025-11-11 08:13] LABS: Iron 29 ug/dl (49-181)
[2025-11-11 08:24] LABS: Total Iron Binding Capacity 197 ug/dl (261-462)
--- NOTE | 2025-11-11 08:27 | PHA.VAN.FU ---
Vancomycin Assessment / Plan
- Assessment
Renal Function: Stable (CKD, NOT ON DIALYSIS)
WBC's are: WNL
In the past 24 hrs, patient has been: Afebrile
- Assessment - Therapeutic Drug Monitoring
Random Level: 14.4
- Dosing Plan
Dosing by Level: Re-dose today (750MG)
- Monitoring Plan
Random Level: 11/12 IN AM
- Follow Up
Pharmacy will continue to follow.
Vancomycin Follow UP
- -
Patient Age: 70
Patient Sex: Male
Vancomycin Day #: 3
Indication: Genito-Urinary Tract
Requesting Provider: eRese Mendoza
Height / Weight:
Height 6 ft
Actual Weight 104.496 kg
Pertinent Past Medical History: DM, indwelling Kenny catheter, CKD stage IV, recent UTI enterococcus
- Vital Signs / Lab Results
Temp Pulse Resp BP Pulse Ox
98.2 F 74 16 152/75 96
11/11/25 07:44 11/11/25 07:44 11/11/25 07:44 11/11/25 07:44 11/11/25 07:44
Lab Results - Hematology
11/09/25 11/10/25 11/10/25
12:40 07:24 09:10
WBC 9.0 Cancelled 10.1
11/10/25 11/11/25
10:09 07:00
WBC 10.7 10.0
Lab Results - Chemistry
11/09/25 11/09/25 11/10/25
12:40 20:25 07:24
BUN 48 H 44 H 41 H
Creatinine 2.9 H 2.6 H 2.6 H
Estimated Creat Clear 29 29
Albumin 3.8
11/10/25
09:10
BUN 40 H
Creatinine 2.6 H
Estimated Creat Clear 29
Albumin
Lab Results - Urine
11/09/25
12:40
Urine Nitrite (Reflex) Positive A
Leukocyte Esterase Rfl 3+ A
Ur Squamous Epith Cells 0-2
Microbiology Results
11/09/25 12:40 Urine Culture - Final
Urine Klebsiella oxytoca
11/09/25 16:01 Blood Culture - Preliminary
Blood/Venous No Growth in 24 hours- Final report to follow
11/09/25 15:38 Blood Culture - Preliminary
Blood/Venous No Growth in 24 hours- Final report to follow
Therapeutic Drug Monitoring
Random Vancomycin 14.4 ug/ml 11/11/25 07:00
--- NOTE | 2025-11-11 08:45 | W.PN.URO.CBU ---
Today's Communication / Plan
-
Discharge on treatment course for Klebsiella cUTI
Maintain Kenny catheter to drainage
Continue tamsulosin + finasteride
Plan for outpatient F/U within 1 week for [facility] teaching (patient is amenable)
F/U w/ Dr. Adkins as scheduled
Assessment / Plan
-
BPH with DE LA TORRE and hydronephrosis
Elevated PSA
Acute on chronic renal insufficiency
Klebiella cUTI
Cr appears to have stabilized (new baseline)
UCx Klebsiella
BCx NG
Diagnosis
-
Date of Service: November 11, 2025
-
Patient Diagnosis:
BPH with DE LA TORRE
Elevated PSA
Acute on chronic renal insufficiency
cUTI
Subjective
-
Feels well.
Urine draining clear yellow.
Denies pain.
Notes bother from catheter strap on thigh.
Objective
-
Vital Signs
Temp Pulse Resp BP Pulse Ox
98.2 F 74 16 152/75 96
11/11/25 07:44 11/11/25 07:44 11/11/25 07:44 11/11/25 07:44 11/11/25 07:44
Intake and Output
11/10/25 11/11/25 11/12/25
06:59 06:59 06:59
Intake Total 2520 / 2520
Output Total 3800 / 3800 3850 / 3850
Balance -3800 / -3800 -1330 / -1330
Intake:
Oral fluids 2520 / 2520
Output:
Urine, Kenny 3450 / 3450 3850 / 3850
Urine, Voided 350 / 350
Laboratory Results
11/11/25 07:00
11/10/25 09:10
Physical Exam
-
General - well developed, well nourished, no acute distress
Abdomen - soft, non-tender, non-distended
- Kenny catheter w/ clear yellow UOP
Skin - warm & dry with no rash
Neuro - AOx3, no motor deficits
Extremities - no clubbing, no cyanosis, no edema
Counseling
-
Total encounter time 50 min with 30 min spent w/ patient in addition to extensive time reviewing urologic history, labs, imaging, and planned diagnostic interventions.
[2025-11-11] MEDS: NOVOLOG FLEXPEN-LOW RESISTANCE SC (08:52)
[2025-11-11] MEDS: VANCOCIN 150 IV (09:32)
[2025-11-11 11:43] LABS: Glucose - Point of Care 167 mg/dl (70-99)
--- NOTE | 2025-11-11 13:02 | W.PN.NEPH.PH ---
Today's Communication / Plan
-
started p.o. iron t.i.d. and continue on discharge
Assessment/Plan
-
Impression
Hyperkalemia
Obstructive uropathy.
CKD stage IV secondary to above-baseline high 2range
mild met acidosis
Enlarged prostate.
Chronic anemia
Plan
and potassium improved after obstruction resolved
Gram-negative urine culture.
creatinine at baseline
need to follow nephro who would take Medicaid
agree with blood transfusion receiving now
iron saturation last admission was 17 and now it is 14%. / if he ever to be a for any length of time we could give him IV iron but not necessary to keep in hospital for that= suggests he does take p.o. iron though unlikely will be effective with
his level of CKD. Suggest PO iron at least t.i.d. and if not effective certainly will need intravenous iron with the transition specialist outpatient
suggested to him to connect with Hematology as an outpatient for IV iron and Procrit
status post subcu epo 11/10
medical insurance coverage limiting unfortunately for efficient care
okay for discharge from renal standpoint
-
-
Date of Service: November 11, 2025
CC / HPI / ROS
-
Chief Complaint:
acute kidney injury obstructive uropathy
History of Present Illness:
acute on chronic kidney disease obstructive uropathy indwelling Kenny
electrolytes improved at baseline
Review of Systems:
no chest pain or shortness of breath
Labs
-
Labs:
WBC 10.0 10^3/uL (4.8-10.8) 11/11/25 07:00
RBC 2.57 10^6/uL (4.70-6.10) L 11/11/25 07:00
Hgb 7.0 g/dL (13.0-18.0) L 11/11/25 07:00
Hct 21.7 % (39.0-52.0) L 11/11/25 07:00
Plt Count 210 10^3/uL (130-400) 11/11/25 07:00
Sodium 134 mmol/L (135-145) L 11/10/25 09:10
Potassium 4.4 mmol/L (3.5-5.1) 11/10/25 09:10
Chloride 110 mmol/L (98-107) H 11/10/25 09:10
Carbon Dioxide 17 mmol/L (22-30) L 11/10/25 09:10
BUN 40 mg/dl (9-20) H 11/10/25 09:10
Creatinine 2.6 mg/dL (0.7-1.3) H 11/10/25 09:10
eGFR 25.88 11/10/25 09:10
Glucose 115 mg/dl (70-99) H 11/10/25 09:10
Calcium 8.3 mg/dl (8.4-10.2) L 11/10/25 09:10
Albumin 3.8 g/dl (3.5-5.0) 11/09/25 12:40
Physical Exam
-
Vital Signs:
Vital Signs
Temp Pulse Resp BP Pulse Ox
98.8 F 73 18 155/71 98
11/11/25 11:23 11/11/25 11:23 11/11/25 11:23 11/11/25 11:23 11/11/25 11:04
Cardiovascular:: Regular rate and rhythm
Respiratory:: Bilateral: CTA
Lung Excursion:: Normal
Abdomen:: Nontender and Soft
Extremity Edema:: None: Bilateral:
Kenny Catheter: Yes
[2025-11-11] MEDS: NOVOLOG FLEXPEN-LOW RESISTANCE 1 UNITS SC ×2 (13:40→17:08)
--- NOTE | 2025-11-11 14:27 | W.PN.HOSP.TC ---
Today's Communication/Plan
-
Assessment / Plan
Assessment / Plan
General: No Apparent Distress and Comfortable
HEENT: Normocephalic, Atraumatic, Moist Mucous Membranes and Anicteric
Respiratory: Clear to Auscultation
Cardiac: Regular Rhythm
GI: Soft, Nontender and Nondistended
Genito-urinary: Kenny
Musculoskeletal: No Clubbing, No Cyanosis and No Edema
Neuro: Awake and AO x 3
Obstructive uropathy
Kenny exchange
CLAU improving
Continue IV fluids
Hyperkalemia
Resolved
CLAU
Resolved
Nephrology was consulted
Anemia, normocytic hemoglobin less than 7, no evidence of acute bleeding, chronic likely related to renal disease
Previously on iron infusions
Will give 1 unit PRBC, has consented is agreeable
Enterococcus UTI
IV vancomycin
Urine culture pending
Ntt-jzoyvan-uetzzszcw diabetes
Sliding scale
Accu-Chek
Anticipated Discharge: Within 24 hours
Subjective/Interval History
-
Date of Service: November 11, 2025
Seen and examined. No new complaints. No acute overnight events.
Agreeable today to 1 unit PRBC. Consent obtained on 11/10/2025.
Objective Data
-
Labs:
Laboratory Results
11/11/25
07:00
WBC 10.0
Hgb 7.0 L
Hct 21.7 L
Plt Count 210
Vital Signs:
Vital Signs
Temp Pulse Resp BP Pulse Ox
98.2 F 71 18 132/67 98
11/11/25 13:38 11/11/25 13:38 11/11/25 13:38 11/11/25 13:38 11/11/25 11:04
I&O
11/10/25 11/11/25 11/12/25
06:59 06:59 06:59
Intake Total 2520 / 2520 250 / 250
Output Total 3800 / 3800 3850 / 3850
Balance -3800 / -3800 -1330 / -1330 250 / 250
[2025-11-11] MEDS: FEOSOL 325 MG PO ×2 (15:27→22:35)
[2025-11-11 16:53] LABS: Glucose - Point of Care 186 mg/dl (70-99)
[2025-11-11 23:44] LABS: Glucose - Point of Care 153 mg/dl (70-99)
[2025-11-12] VITALS (7 sets, daily range): BP systolic 113–187; BP diastolic 63–86; PULSE 70–77; O2SAT 99; BMI 31.5
[2025-11-12] MEDS: NSS 1000 IV (02:37)
[2025-11-12 07:53] LABS: Glucose - Point of Care 128 mg/dl (70-99)
--- NOTE | 2025-11-12 08:03 | PHA.VAN.FU ---
Vancomycin Assessment / Plan
- Assessment
Renal Function: Stable
WBC's are: WNL
In the past 24 hrs, patient has been: Afebrile
- Assessment - Therapeutic Drug Monitoring
Random Level: 12.3
- Dosing Plan
Dosing by Level: Re-dose today (1000MG)
- Monitoring Plan
Random Level: 11/13 IN AM
- Follow Up
Pharmacy will continue to follow.
Vancomycin Follow UP
- -
Patient Age: 70
Patient Sex: Male
Vancomycin Day #: 4
Indication: Genito-Urinary Tract
Requesting Provider: Reese Mendoza
Height / Weight:
Height 6 ft
Actual Weight 105.188 kg
Pertinent Past Medical History: DM, indwelling Kenny catheter, CKD stage IV, recent UTI enterococcus
- Vital Signs / Lab Results
Temp Pulse Resp BP Pulse Ox
98.2 F 74 14 153/64 98
11/12/25 07:42 11/12/25 07:42 11/12/25 07:42 11/12/25 07:42 11/12/25 07:42
Lab Results - Hematology
11/09/25 11/10/25 11/10/25
12:40 07:24 09:10
WBC 9.0 Cancelled 10.1
11/10/25 11/11/25
10:09 07:00
WBC 10.7 10.0
Lab Results - Chemistry
11/09/25 11/09/25 11/10/25
12:40 20:25 07:24
BUN 48 H 44 H 41 H
Creatinine 2.9 H 2.6 H 2.6 H
Estimated Creat Clear 29 29
Albumin 3.8
11/10/25
09:10
BUN 40 H
Creatinine 2.6 H
Estimated Creat Clear 29
Albumin
Microbiology Results
11/09/25 16:01 Blood Culture - Preliminary
Blood/Venous No Growth in 48 hours- Final report to follow
11/09/25 15:38 Blood Culture - Preliminary
Blood/Venous No Growth in 48 hours- Final report to follow
11/09/25 12:40 Urine Culture - Final
Urine Klebsiella oxytoca
Therapeutic Drug Monitoring
Random Vancomycin 12.3 ug/ml 11/12/25 05:46
[2025-11-12] MEDS: NOVOLOG FLEXPEN-LOW RESISTANCE SC (08:08)
[2025-11-12] MEDS: FLOMAX 0.4 MG PO (08:09)
[2025-11-12] MEDS: PROSCAR 5 MG PO (08:09)
[2025-11-12] MEDS: FEOSOL 325 MG PO (08:09)
--- NOTE | 2025-11-12 08:33 | W.PN.URO.CBU ---
Today's Communication / Plan
-
PO treatment course for Klebsiella cUTI
Maintain Kenny catheter to drainage
Continue tamsulosin + finasteride
Plan for outpatient F/U in 1-2 weeks for [facility] teaching (patient is amenable)
Scheduled for outpatient F/U w/ Dr. Adkins
Assessment / Plan
-
BPH with DE LA TORRE and hydronephrosis
Elevated PSA
Acute on chronic renal insufficiency
Klebiella cUTI
Cr appears to have stabilized @2.6
UCx Klebsiella
BCx NG
Diagnosis
-
Date of Service: November 12, 2025
-
Patient Diagnosis:
BPH with DE [place] TORRE
Elevated PSA
Acute on chronic renal insufficiency
cUTI
Subjective
-
Urine output clear per catheter.
s/p 1u PRBC for Hgb 7.0.
No complaints.
Objective
-
Vital Signs
Temp Pulse Resp BP Pulse Ox
98.2 F 74 14 153/64 98
11/12/25 07:42 11/12/25 07:42 11/12/25 07:42 11/12/25 07:42 11/12/25 07:42
Intake and Output
11/11/25 11/12/25 11/13/25
06:59 06:59 06:59
Intake Total 2520 / 2520 250 / 250
Output Total 3850 / 3850 3525 / 3525
Balance -1330 / -1330 -3275 / -3275
Intake:
Oral fluids 2520 / 2520
Blood Product Amount Infused ( 250 / 250
mL)
Packed Rbc Leukoreduced Unit 250 / 250
[id number]
Output:
Urine, Kenny 3850 / 3850 3525 / 3525
Laboratory Results
11/11/25 07:00
11/10/25 09:10
Physical Exam
-
General - well developed, well nourished, no acute distress
Abdomen - soft, non-tender, non-distended
- Kenny catheter w/ clear UOP
Counseling
-
D/w patient.
Care Review
Data Reviewed
CT Scan: Report Pers Reviewed and Image Pers Reviewed
Total Time Spent with Patient (in minutes): 20
[2025-11-12 08:55] LABS: Hematocrit 25.1 % (39.0-52.0); Hemoglobin 8.2 g/dL (13.0-18.0); Mean Corp Hgb Conc. 32.7 g/dL (33.0-37.0); Mean Corpuscular Volume 84.8 fL (80.0-94.0); Platelet Count 221 10^3/uL (130-400); Red Cell Dist. Width 13.7 % (11.5-14.5)
[2025-11-12] MEDS: NSS IV (08:59)
[2025-11-12 09:13] LABS: Blood Urea Nitrogen 35 mg/dl (9-20); Calcium 8.4 mg/dl (8.4-10.2); Carbon Dioxide 18 mmol/L (22-30); Chloride 111 mmol/L (98-107); Estimated Creatinine Clearance 40 ml/min; Glucose 123 mg/dl (70-99); Potassium 4.3 mmol/L (3.5-5.1); Sodium 135 mmol/L (135-145); eGFR 31.63
--- NOTE | 2025-11-12 09:22 | W.PN.UPDATE ---
Update Note
Progress Note Update
renal signed off . stable ckd
[2025-11-12 12:18] LABS: Glucose - Point of Care 210 mg/dl (70-99)
[2025-11-12] MEDS: NOVOLOG FLEXPEN-LOW RESISTANCE 2 UNITS SC (12:59)
--- NOTE | 2025-11-12 14:11 | W.PN.HOSP.TC ---
Today's Communication/Plan
-
Assessment / Plan
Assessment / Plan
General: No Apparent Distress and Comfortable
HEENT: Normocephalic, Atraumatic, Moist Mucous Membranes and Anicteric
Respiratory: Clear to Auscultation
Cardiac: Regular Rhythm
GI: Soft, Nontender and Nondistended
Genito-urinary: Kenny
Musculoskeletal: No Clubbing, No Cyanosis and No Edema
Neuro: Awake and AO x 3
Obstructive uropathy
Kenny exchange
CLAU improving
Continue IV fluids
Hyperkalemia
Resolved
CLAU
Resolved
Nephrology was consulted
Anemia, normocytic hemoglobin less than 7, no evidence of acute bleeding, chronic likely related to renal disease
Previously on iron infusions
Will give 1 unit PRBC, has consented is agreeable
Klebsiella UTI per Ucx
Augmentin
Wqy-sxoyzpj-eawzwuofc diabetes
Sliding scale
Accu-Chek
PT/OT no needs
Anticipated Discharge: Today
Subjective/Interval History
-
Date of Service: November 12, 2025
Seen and examined. No new complaints. No acute overnight events.
Objective Data
-
Labs:
Laboratory Results
11/12/25
08:44
WBC 10.2
Hgb 8.2 L
Hct 25.1 L
Plt Count 221
Sodium 135
Potassium 4.3
Chloride 111 H
Carbon Dioxide 18 L
BUN 35 H
Creatinine 2.2 H
Glucose 123 H
Calcium 8.4
Vital Signs:
Vital Signs
Temp Pulse Resp BP Pulse Ox
98.6 F 74 16 172/71 98
11/12/25 11:30 11/12/25 11:30 11/12/25 11:30 11/12/25 11:30 11/12/25 11:30
I&O
11/11/25 11/12/25 11/13/25
06:59 06:59 06:59
Intake Total 2520 / 2520 250 / 250 300 / 300
Output Total 3850 / 3850 3525 / 3525
Balance -1330 / -1330 -3275 / -3275 300 / 300
--- NOTE | 2025-11-12 14:14 | W.DCSUMMARY ---
Discharge Summary
Discharge Data
Date of Admission: 11/09/25
Date of Discharge: 11/12/25
-
Pending Results: No
Hospital Course
70 male history of hypertension enw-sdvykgw-exmwomllx diabetes, CKD, BPH, indwelling Kenny catheter
Presented with a clogged indwelling Kenny. Found to have hyperkalemia that resolved once the Kenny was exchanged. Urine culture growing Klebsiella on antibiotics for which will be continued for total 10 days. Additionally, noted to have a
downtrending hemoglobin as low as 6.8. Was given 1 unit PRBCs without evidence of active bleeding. Discharge home with outpatient urology follow-up.
CTAP
IMPRESSION:
Moderate to advanced right hydronephrosis and mild hydronephrosis on the left. Left hydronephrosis slightly improved compared to prior examination. No renal or ureteral calculus. Stable persistent bilateral ureteral distention. Marked urinary
bladder wall thickening appears slightly greater than that seen previously, though may be accentuated by underdistention. There is also perivesical soft tissue stranding, suspicious for superimposed infection/cystitis. Kenny catheter in place. The
bladder is empty.
Stable chronic findings including cholelithiasis. Left adrenal gland benign myelolipoma. Mild diverticulosis without acute diverticulitis.
Mild, slightly increased atelectasis at the lung bases.
More than 30 minutes spent in discharge including
Final examination of the patient
Summarizing hospital stay
Instructions for continuing care to all relevant caregivers
Preparation of discharge records, prescriptions, and referral forms
Total time spent (in minutes): 33mins
Discharge Plan
-
Patient Disposition: Home (Routine Discharge)
Discharge Diagnosis/Procedures: Hyperkalemia
Klebsiella UTI
Condition: Good
Diet: As tolerated
Activity: As tolerated
Activity Restrictions/Additional Instructions:
Presented with a clogged indwelling Kenny. Found to have hyperkalemia that resolved once the Kenny was exchanged. Urine culture growing Klebsiella on antibiotics for which will be continued for total 10 days. Additionally, noted to have a
downtrending hemoglobin as low as 6.8. Was given 1 unit PRBCs without evidence of active bleeding. Discharge home with outpatient urology follow-up.
CTAP
IMPRESSION:
Moderate to advanced right hydronephrosis and mild hydronephrosis on the left. Left hydronephrosis slightly improved compared to prior examination. No renal or ureteral calculus. Stable persistent bilateral ureteral distention. Marked urinary
bladder wall thickening appears slightly greater than that seen previously, though may be accentuated by underdistention. There is also perivesical soft tissue stranding, suspicious for superimposed infection/cystitis. Kenny catheter in place. The
bladder is empty.
Stable chronic findings including cholelithiasis. Left adrenal gland benign myelolipoma. Mild diverticulosis without acute diverticulitis.
Mild, slightly increased atelectasis at the lung bases.
Referrals:
Mika Adkins MD [Active, Urology]
Referral Note: Please keep your scheduled appointment with Dr. Adkins after discharge.
You should call [facility] MRI scheduling after discharge to schedule a next available date for MRI prostate.
If you need this date moved up, this can be coordinated by calling our office to assist with finding an earlier date (after an initial date is confirmed by MRI dept).
UNKNOWN - PT DOES,NOT KNOW [Family Provider]
Prescriptions:
New
amoxicillin-pot clavulanate 875-125 mg Tablet
1 tab PO Q12 Qty: 20 0RF
Continued
tamsulosin 0.4 mg Capsule
0.4 mg PO DAILY Qty: 30 0RF
finasteride 5 mg Tablet
5 mg PO DAILY Qty: 30 0RF
Discharge Orders:
Discharge Patient (As Directed); Ordered 11/12/25
Ordered By: Mingo Monroe
Discharge Date and Time
Print Language: ESTONIAN
--- NOTE | 2025-11-12 15:34 | CM ---
Patient will discharge home today
Therapy- no skilled needs
No CM needs at this time
Plan: Home, no needs
== END 2025-11-12 16:00 | disposition home or self-care (01) | DRG 699 ==
LOC: 4 WEST ACU 14:09
PROVIDERS: ADMITTING PHYSICIAN Internal Medicine; ATTENDING PHYSICIAN Hospitalist; CONSULT PHYSICIAN Internal Medicine Nephrology; CONSULT PHYSICIAN Specialist; EMERGENCY PHYSICIAN Emergency Medicine
PROC: 30233N1 Transfusion of Nonautologous Red Blood Cells into Peripheral Vein, Percutaneous Approach (ICD-10-PCS; 2025-11-11)
DX: T83.511A Infection and inflammatory reaction due to indwelling urethral catheter, initial encounter (principal); E87.20 Acidosis, unspecified; N18.4 Chronic kidney disease, stage 4 (severe); N13.8 Other obstructive and reflux uropathy; N17.9 Acute kidney failure, unspecified; J98.11 Atelectasis; E87.5 Hyperkalemia; N39.0 Urinary tract infection, site not specified; E11.22 Type 2 diabetes mellitus with diabetic chronic kidney disease; K80.20 Calculus of gallbladder without cholecystitis without obstruction; K57.30 Diverticulosis of large intestine without perforation or abscess without bleeding; B96.1 Klebsiella pneumoniae [K. pneumoniae] as the cause of diseases classified elsewhere; I12.9 Hypertensive chronic kidney disease with stage 1 through stage 4 chronic kidney disease, or unspecified chronic kidney disease; D63.1 Anemia in chronic kidney disease; E66.9 Obesity, unspecified; R97.20 Elevated prostate specific antigen [PSA]; N40.1 Benign prostatic hyperplasia with lower urinary tract symptoms; Y84.6 Urinary catheterization as the cause of abnormal reaction of the patient, or of later complication, without mention of misadventure at the time of the procedure; Y92.9 Unspecified place or not applicable; Y73.2 Prosthetic and other implants, materials and accessory gastroenterology and urology devices associated with adverse incidents; Z68.31 Body mass index [BMI] 31.0-31.9, adult; Z91.013 Allergy to seafood
CPT/HCPCS: 51702; 51798; 74176; 80048; 80053; 80202; 81003; 81015; 82962; 83540; 83550; 84132; 85025; 85027; 86850; 86900; 86901; 86920; 87040; 87077; 87086; 87186; 93005; 96361; 96374; 96375; 97162; 97165; 99285; P9016; Q5106